=== PATIENT | male | born 1960 | race African-American/Black ===

== ENCOUNTER 2017-03-13 14:04 | Inpatient (IN) | payer MEDICARE, MEDICAID ==
[~2017-03-13] VITALS: Ht 185.4 cm; Wt 117.3 kg
[2017-03-13] VITALS: BP 124/75
--- NOTE | 2017-03-13 14:14 | Emergency Room Report ---
History of Present Illness General Chief Complaint: Altered Level of Consciousness Source: EMS Present Illness HPI The patient had a possible syncopal episode. He was in an adult day care center and slumped over sitting in a chair and was unresponsive. He's been unresponsive since that time. He's been coughing. Paramedics state that pulse oximetry was 94%. He has a history of congestive heart failure and Down's syndrome. Accucheck 167 in field. The patient is unable to give a history at this time. Allergies: Coded Allergies: No Known Allergies (Unverified , 03/13/17) Patient History Limited by: medical condition Past Medical History: see triage record Social History Narrative adult day care center Reviewed Nursing Documentation: PMH: Agreed, PSxH: Agreed Nursing Documentation-PMH Past Medical History: No History, Except For Hx Hypertension: Yes Hx Diabetes: Yes Review of Systems All Other Systems: limited Physical Exam Vital Signs Date Time Temp Pulse Resp B/P Pulse Ox O2 Delivery O2 Flow Rate FiO2 03/13/17 13:59 98.1 110 16 211/134 94 Room Air Sp02 EP Interpretation: reviewed, abnormal - hypoxic as interpreted by me (88% RA) General Appearance: no apparent distress, lethargic, Chronically Ill Head: normocephalic Eyes: bilateral eye PERRL, bilateral eye normal inspection ENT: moist mucus membranes Neck: supple Respiratory: rales Cardiovascular #1: regular rate, rhythm, edema - 1-2+ bilat Cardiovascular #2: 2+ radial (R) Gastrointestinal: normal inspection, normal bowel sounds, non tender, no mass, non-distended, distended, overweight Musculoskeletal: back normal, normal range of motion, no calf tenderness, pelvis stable Neurologic: other - Eyes closed, coughing, resp to lash stim and pain all 4 Psychiatric: other - lethargy Skin: normal inspection, warm/dry Medical Decision Making Diagnostic Impression: Primary Impression: Syncope Qualified Codes: R55 - Syncope and collapse Additional Impressions: Pulmonary edema Qualified Codes: J81.0 - Acute pulmonary edema Hypoxia Down's syndrome ER Course Patient presents with altered level of consciousness, possible syncope and also rales. He is hypoxemic. He has a history of Down's. His altered mentation does not appear to be focal however CT of the head will be performed. The patient is hypoxemic and has findings of congestive heart failure. He'll be treated with nitroglycerin paste and also Lasix. Emergent evaluation to exclude myocardial infarction is undertaken. Also emergent treatment is undertaken to treat his hypoxia. Will be given breathing treatment. EKG excludes acute myocardial injury. Chest x-ray reveals congestive heart failure or edema. Initial troponin is negative. White count is normal except which makes infectious etiology less likely. The patient is afebrile. The patient is beginning to diurese with Lasix however a second dose is given. His blood pressure has improved. In addition to that he is back to his baseline mental status according to the worker from the adult daycare. He still has hypoxia which is corrected on oxygen. He is admitted to telemetry under the care of Dr. Penaloza. Laboratory Tests Test 03/13/17 14:10 03/13/17 14:45 White Blood Count 5.8 K/UL (4.8-10.8) Red Blood Count 3.78 M/UL (4.70-6.10) L Hemoglobin 10.7 G/DL (14.2-18.0) L Hematocrit 33.4 % (42.0-52.0) L Mean Corpuscular Volume 88 FL (80-99) Mean Corpuscular Hemoglobin 28.2 PG (27.0-31.0) Mean Corpuscular Hemoglobin Concent 31.9 G/DL (32.0-36.0) L Red Cell Distribution Width 14.1 % (11.6-14.8) Platelet Count 201 K/UL (150-450) Mean Platelet Volume 7.1 FL (6.5-10.1) Neutrophils (%) (Auto) 67.2 % (45.0-75.0) Lymphocytes (%) (Auto) 21.4 % (20.0-45.0) Monocytes (%) (Auto) 8.5 % (1.0-10.0) Eosinophils (%) (Auto) 1.9 % (0.0-3.0) Basophils (%) (Auto) 1.0 % (0.0-2.0) Prothrombin Time 10.2 SEC (9.30-11.50) Prothrombin Time INR 1.0 (0.9-1.1) PTT 31 SEC (23-33) Sodium Level 140 mEQ/L (135-145) Potassium Level 3.8 mEQ/L (3.4-4.9) Chloride Level 106 mEQ/L (98-107) Carbon Dioxide Level 19 mEQ/L (20-30) L Anion Gap 15 (5-15) Blood Urea Nitrogen 58 mg/dL (7-23) H Creatinine 3.3 mg/dL (0.7-1.2) H Estimate Glomerular Filtration Rate 23.8 mL/min (>60) Glucose Level 136 mg/dL (74-106) H Calcium Level 8.7 mg/dL (8.6-10.2) Total Bilirubin 0.4 mg/dL (0.0-1.2) Aspartate Amino Transferase (AST) 20 U/L (5-40) Alanine Aminotransferase (ALT) 31 U/L (3-41) Alkaline Phosphatase 124 U/L (40-129) Total Creatine Kinase 244 U/L (38-174) H Troponin I < 0.30 ng/mL (<=0.30) Pro-B-Type Natriuretic Peptide 1675 pg/mL (0-125) H Total Protein 7.0 g/dL (6.6-8.7) Albumin 4.2 g/dL (3.5-5.2) Globulin 2.8 g/dL Albumin/Globulin Ratio 1.5 (1.0-2.7) Urine Color Pale yellow Urine Appearance Clear Urine pH 5 (4.5-8.0) Urine Specific [place] 1.015 (1.005-1.035) Urine Protein 4+ (NEGATIVE) H Urine Glucose (UA) Negative (NEGATIVE) Urine Ketones Negative (NEGATIVE) Urine Occult Blood 2+ (NEGATIVE) H Urine Nitrite Negative (NEGATIVE) Urine Bilirubin Negative (NEGATIVE) Urine Urobilinogen Normal MG/DL (0.0-1.0) Urine Leukocyte Esterase Negative (NEGATIVE) Urine RBC 2-4 /HPF (0 - 0) H Urine WBC 0-2 /HPF (0 - 0) Urine Squamous Epithelial Cells Occasional /LPF Urine Bacteria Few /HPF (NONE) Urine Opiates Screen Negative (NEGATIVE) Urine Barbiturates Screen Negative (NEGATIVE) Phencyclidine (PCP) Screen Negative (NEGATIVE) Urine Amphetamines Screen Negative (NEGATIVE) Urine Benzodiazepines Screen Negative (NEGATIVE) Urine Cocaine Screen Negative (NEGATIVE) Urine Marijuana (THC) Screen Negative (NEGATIVE) EKG Diagnostic Results Rate: normal Rhythm: NSR ST Segments: no acute changes Rhythm Strip Diag. Results EP Interpretation: yes Rhythm: NSR, other - PVC - rate 89 Chest X-Ray Diagnostic Results EP Interpretation: Yes Findings: no effusion, no pneumothorax, other - CHF Number of Views: 1 Last Vital Signs Date Time Temp Pulse Resp B/P Pulse Ox O2 Delivery O2 Flow Rate FiO2 03/13/17 15:58 78 21 149/76 95 Nasal Cannula 4.0 03/13/17 14:26 95.2 Status: improved Disposition: ADMITTED INPATIENT Condition: Serious Lalito Martinez M.D. Mar 13, 2017 14:14
[2017-03-13] MEDS ORDERED: Albuterol ud Inhalation HHN ONE (14:15)
[2017-03-13] MEDS ORDERED: Nitroglycerin 2% oint pkt TOPIC ONE (14:15)
[2017-03-13] MEDS ORDERED: HYDRALAZINE HCL50 MG ORAL (14:18)
[2017-03-13] MEDS ORDERED: ATORVASTATIN CA20 MG ORAL (14:18)
[2017-03-13] MEDS ORDERED: CARVEDILOL25 MG ORAL (14:18)
[2017-03-13] MEDS ORDERED: FUROSEMIDE20 M1 ORAL (14:18)
[2017-03-13] MEDS ORDERED: LOSARTAN POTASS50 MG ORAL (14:18)
[2017-03-13] MEDS ORDERED: TAMSULOSIN HCL0.4 MG ORAL (14:18)
[2017-03-13] MEDS ORDERED: ALLOPURINOL100 M1 ORAL (14:18)
[2017-03-13] MEDS ORDERED: AMLODIPINE BESY10 MG ORAL (14:18)
[2017-03-13] MEDS ORDERED: ISOSORBIDE DINIT5 MG ORAL (14:18)
[2017-03-13] MEDS ORDERED: LANTUS SOL100 UNIT/1 SUBQ (14:18)
[2017-03-13] MEDS ORDERED: GLIPIZIDE5 MG ORAL (14:18)
[2017-03-13 14:26] VITALS: BP 149/97
--- NOTE | 2017-03-13 14:32 | Diagnostic Imaging Report ---
Indication: Cough Comparison: None A single view chest radiograph was obtained. Findings: Interstitial edema suspected. The heart is enlarged. No pleural effusions are appreciated. The bones are unremarkable. Impression: Interstitial edema suspected
[2017-03-13 14:33] LABS: EOSINOPHILS % (AUTO) 1.9 % (0.0-3.0); LYMPHOCYTES % (AUTO) 21.4 % (20.0-45.0); MEAN CORPUSCULAR HEMOGLOBIN 28.2 PG (27.0-31.0); MEAN CORPUSCULAR HGB CONC 31.9 G/DL (32.0-36.0); MEAN CORPUSCULAR VOLUME 88 FL (80-99); MEAN PLATELET VOLUME 7.1 FL (6.5-10.1); MONOCYTES % (AUTO) 8.5 % (1.0-10.0); NEUTROPHILS % (AUTO) 67.2 % (45.0-75.0); PLATELET COUNT 201 K/UL (150-450); RED BLOOD COUNT 3.78 M/UL (4.70-6.10); RED CELL DISTRIBUTION WIDTH 14.1 % (11.6-14.8); WHITE BLOOD COUNT 5.8 K/UL (4.8-10.8)
[2017-03-13 14:45] LABS: PROTHROMBIN TIME 10.2 SEC (9.30-11.50)
[2017-03-13 14:50] LABS: TROPONIN I < 0.30 ng/mL (<=0.30)
[2017-03-13 14:51] LABS: ALANINE AMINOTRANSFERASE 31 U/L (3-41); ALBUMIN/GLOBULIN RATIO 1.5 (1.0-2.7); ANION GAP 15 (5-15); ASPARTATE AMINO TRANSFERASE 20 U/L (5-40); CALCIUM 8.7 mg/dL (8.6-10.2); CARBON DIOXIDE 19 mEQ/L (20-30); CHLORIDE 106 mEQ/L (98-107); CREATININE 3.3 mg/dL (0.7-1.2); GLOMERULAR FILTRATION RATE 23.8 mL/min (>60); HEMOLYSIS 5; POTASSIUM 3.8 mEQ/L (3.4-4.9); SODIUM 140 mEQ/L (135-145)
[2017-03-13 14:58] LABS: APPEARANCE,URINE CLEAR; KETONES,URINE NEGATIVE (NEGATIVE); LEUKOCYTE ESTERASE ,URINE NEGATIVE (NEGATIVE); NITRITE,URINE NEGATIVE (NEGATIVE); PH,URINE 5 (4.5-8.0); PROTEIN,URINE 4+ (NEGATIVE); UROBILINOGEN,URINE NORMAL MG/DL (0.0-1.0)
[2017-03-13 15:09] LABS: BACTERIA,URINE FEW /HPF; SQUAMOUS EPITHELIAL CELL,UR OCCASIONAL /LPF (NONE/OCC); WBC,URINE 0-2 /HPF (0 - 0)
--- NOTE | 2017-03-13 15:20 | Diagnostic Imaging Report ---
Indication: Syncope Technique: Contiguous 5 mm thick transaxial imaging of the head obtained in a Siemens Sensation [address] scanner. Soft tissue and bone windows generated. Total Dose length Product (DLP): [address] Dose Index Volume (CTDIvol): 70.38 mGy Comparison: none Findings: The size and configuration of the cortical sulci, basal cisterns, and ventricles are within normal limits for age. There is no mass effect, midline shift, or edema identified. There is no evidence of acute hemorrhage or abnormal intra-axial or extra-axial fluid collections. The bones and soft tissues are unremarkable. Impression: No mass effect, edema or acute bleed. The CT scanner at [facility] is accredited by the [place] [employer] and the scans are performed using dose optimization techniques as appropriate to a performed exam including Automatic Exposure control.
[2017-03-13] MEDS ORDERED: DuoNeb 0.5-3(2.5)mg/3ml neb HHN PRN (15:45)
[2017-03-13] MEDS ORDERED: Miralax 17gm pkt ORAL PRN (15:45)
[2017-03-13 15:58] VITALS: BP 149/76
[2017-03-13] MEDS: NovoLOG Insulin Flexpen SUBQ SCH ×2 (16:30→21:08)
--- NOTE | 2017-03-13 17:19 | Neurology Progress Note ---
Objective Physical Exam Last Vital Signs Date Time Temp Pulse Resp B/P Pulse Ox O2 Delivery O2 Flow Rate FiO2 03/13/17 16:27 81 21 151/76 95 Nasal Cannula 4.0 03/13/17 14:26 95.2 Laboratory Tests Test 03/13/17 14:10 03/13/17 14:45 White Blood Count 5.8 K/UL (4.8-10.8) Red Blood Count 3.78 M/UL (4.70-6.10) L Hemoglobin 10.7 G/DL (14.2-18.0) L Hematocrit 33.4 % (42.0-52.0) L Mean Corpuscular Volume 88 FL (80-99) Mean Corpuscular Hemoglobin 28.2 PG (27.0-31.0) Mean Corpuscular Hemoglobin Concent 31.9 G/DL (32.0-36.0) L Red Cell Distribution Width 14.1 % (11.6-14.8) Platelet Count 201 K/UL (150-450) Mean Platelet Volume 7.1 FL (6.5-10.1) Neutrophils (%) (Auto) 67.2 % (45.0-75.0) Lymphocytes (%) (Auto) 21.4 % (20.0-45.0) Monocytes (%) (Auto) 8.5 % (1.0-10.0) Eosinophils (%) (Auto) 1.9 % (0.0-3.0) Basophils (%) (Auto) 1.0 % (0.0-2.0) Prothrombin Time 10.2 SEC (9.30-11.50) Prothromb Time International Ratio 1.0 (0.9-1.1) Activated Partial Thromboplast Time 31 SEC (23-33) Sodium Level 140 mEQ/L (135-145) Potassium Level 3.8 mEQ/L (3.4-4.9) Chloride Level 106 mEQ/L (98-107) Carbon Dioxide Level 19 mEQ/L (20-30) L Anion Gap 15 (5-15) Blood Urea Nitrogen 58 mg/dL (7-23) H Creatinine 3.3 mg/dL (0.7-1.2) H Estimat Glomerular Filtration Rate 23.8 mL/min (>60) Glucose Level 136 mg/dL (74-106) H Calcium Level 8.7 mg/dL (8.6-10.2) Total Bilirubin 0.4 mg/dL (0.0-1.2) Aspartate Amino Transf (AST/SGOT) 20 U/L (5-40) Alanine Aminotransferase (ALT/SGPT) 31 U/L (3-41) Alkaline Phosphatase 124 U/L (40-129) Total Creatine Kinase 244 U/L (38-174) H Troponin I < 0.30 ng/mL (<=0.30) Pro-B-Type Natriuretic Peptide 1675 pg/mL (0-125) H Total Protein 7.0 g/dL (6.6-8.7) Albumin 4.2 g/dL (3.5-5.2) Globulin 2.8 g/dL Albumin/Globulin Ratio 1.5 (1.0-2.7) Urine Color Pale yellow Urine Appearance Clear Urine pH 5 (4.5-8.0) Urine Specific [place] 1.015 (1.005-1.035) Urine Protein 4+ (NEGATIVE) H Urine Glucose (UA) Negative (NEGATIVE) Urine Ketones Negative (NEGATIVE) Urine Occult Blood 2+ (NEGATIVE) H Urine Nitrite Negative (NEGATIVE) Urine Bilirubin Negative (NEGATIVE) Urine Urobilinogen Normal MG/DL (0.0-1.0) Urine Leukocyte Esterase Negative (NEGATIVE) Urine RBC 2-4 /HPF (0 - 0) H Urine WBC 0-2 /HPF (0 - 0) Urine Squamous Epithelial Cells Occasional /LPF Urine Bacteria Few /HPF (NONE) Urine Opiates Screen Negative (NEGATIVE) Urine Barbiturates Screen Negative (NEGATIVE) Phencyclidine (PCP) Screen Negative (NEGATIVE) Urine Amphetamines Screen Negative (NEGATIVE) Urine Benzodiazepines Screen Negative (NEGATIVE) Urine Cocaine Screen Negative (NEGATIVE) Urine Marijuana (THC) Screen Negative (NEGATIVE) Impression/Recommendations Problems: (1) Syncope (2) Hypoxia (3) Pulmonary edema Status: unchanged Diagnostic Impression #[id number] DYLAN DYE Mar 13, 2017 17:19
[2017-03-13] MEDS: HydrALAZINE 50mg tab ORAL SCH (18:00)
--- NOTE | 2017-03-13 19:30 | History and Physical ---
History of Present Illness General Date patient seen: Mar 13, 2017 Reason for Hospitalization: Altered Level of Consciousness Present Illness HPI 56 year old with developmental delay, CHF was brought in by paramedics with CC of syncopal episode. He was in an adult day care center and slumped over sitting in a chair and was unresponsive. He's been unresponsive since that time. He's been coughing. Initial cxr showed that the pt has cardiomegaly and pulmonary edema. Allergies: Coded Allergies: No Known Allergies (Unverified , 03/13/17) Medication History Scheduled Allopurinol* (Allopurinol*), 100 MG ORAL DAILY, (Reported) Amlodipine Besylate* (Amlodipine Besylate*), 10 MG ORAL DAILY, (Reported) Atorvastatin Calcium* (Atorvastatin Calcium*), 20 MG ORAL BEDTIME, (Reported) Carvedilol* (Carvedilol*), 25 MG ORAL EVERY 12 HOURS, (Reported) Furosemide* (Lasix*), 20 MG ORAL DAILY, (Reported) Glipizide* (Glipizide*), 5 MG ORAL BIDAC, (Reported) Hydralazine Hcl* (Hydralazine Hcl*), 50 MG ORAL BID, (Reported) Insulin Glargine (Lantus), Unknown Dose SUBQ BEDTIME, (Reported) Isosorbide Dinitrate (Isosorbide Dinitrate*), 10 MG ORAL TID, (Reported) Losartan Potassium* (Losartan Potassium*), 100 MG ORAL DAILY, (Reported) Tamsulosin Hcl (Tamsulosin Hcl*), 0.4 MG ORAL BEDTIME, (Reported) Patient History Healthcare decision maker N Resuscitation status Full Code Advanced Directive on File Past Medical/Surgical History Past Medical/Surgical History: (1) Congestive heart failure (2) Down's syndrome Review of Systems Constitutional: Reports: weakness Respiratory: Reports: cough, shortness of breath All Other Systems: negative except mentioned in HPI Physical Exam General Appearance: WD/WN, mild distress Lines, tubes and drains: peripheral HEENT: normocephalic Neck: non-tender, normal alignment Respiratory/Chest: chest wall non-tender, rhonchi - bilaterally Breasts: no masses Cardiovascular/Chest: normal peripheral pulses Abdomen: normal bowel sounds Skin Exam: normal pigmentation Last 24 Hour Vital Signs Date Time Temp Pulse Resp B/P Pulse Ox O2 Delivery O2 Flow Rate FiO2 03/13/17 18:00 151/76 03/13/17 16:27 81 21 151/76 95 Nasal Cannula 4.0 03/13/17 15:58 78 21 149/76 95 Nasal Cannula 4.0 03/13/17 14:45 149/97 03/13/17 14:26 95.2 84 23 149/97 94 Room Air 03/13/17 13:59 98.1 110 16 211/134 94 Room Air Laboratory Tests Test 03/13/17 14:10 03/13/17 14:45 White Blood Count 5.8 K/UL (4.8-10.8) Red Blood Count 3.78 M/UL (4.70-6.10) L Hemoglobin 10.7 G/DL (14.2-18.0) L Hematocrit 33.4 % (42.0-52.0) L Mean Corpuscular Volume 88 FL (80-99) Mean Corpuscular Hemoglobin 28.2 PG (27.0-31.0) Mean Corpuscular Hemoglobin Concent 31.9 G/DL (32.0-36.0) L Red Cell Distribution Width 14.1 % (11.6-14.8) Platelet Count 201 K/UL (150-450) Mean Platelet Volume 7.1 FL (6.5-10.1) Neutrophils (%) (Auto) 67.2 % (45.0-75.0) Lymphocytes (%) (Auto) 21.4 % (20.0-45.0) Monocytes (%) (Auto) 8.5 % (1.0-10.0) Eosinophils (%) (Auto) 1.9 % (0.0-3.0) Basophils (%) (Auto) 1.0 % (0.0-2.0) Prothrombin Time 10.2 SEC (9.30-11.50) Prothromb Time International Ratio 1.0 (0.9-1.1) Activated Partial Thromboplast Time 31 SEC (23-33) Sodium Level 140 mEQ/L (135-145) Potassium Level 3.8 mEQ/L (3.4-4.9) Chloride Level 106 mEQ/L (98-107) Carbon Dioxide Level 19 mEQ/L (20-30) L Anion Gap 15 (5-15) Blood Urea Nitrogen 58 mg/dL (7-23) H Creatinine 3.3 mg/dL (0.7-1.2) H Estimat Glomerular Filtration Rate 23.8 mL/min (>60) Glucose Level 136 mg/dL (74-106) H Calcium Level 8.7 mg/dL (8.6-10.2) Total Bilirubin 0.4 mg/dL (0.0-1.2) Aspartate Amino Transf (AST/SGOT) 20 U/L (5-40) Alanine Aminotransferase (ALT/SGPT) 31 U/L (3-41) Alkaline Phosphatase 124 U/L (40-129) Total Creatine Kinase 244 U/L (38-174) H Troponin I < 0.30 ng/mL (<=0.30) Pro-B-Type Natriuretic Peptide 1675 pg/mL (0-125) H Total Protein 7.0 g/dL (6.6-8.7) Albumin 4.2 g/dL (3.5-5.2) Globulin 2.8 g/dL Albumin/Globulin Ratio 1.5 (1.0-2.7) Urine Color Pale yellow Urine Appearance Clear Urine pH 5 (4.5-8.0) Urine Specific [place] 1.015 (1.005-1.035) Urine Protein 4+ (NEGATIVE) H Urine Glucose (UA) Negative (NEGATIVE) Urine Ketones Negative (NEGATIVE) Urine Occult Blood 2+ (NEGATIVE) H Urine Nitrite Negative (NEGATIVE) Urine Bilirubin Negative (NEGATIVE) Urine Urobilinogen Normal MG/DL (0.0-1.0) Urine Leukocyte Esterase Negative (NEGATIVE) Urine RBC 2-4 /HPF (0 - 0) H Urine WBC 0-2 /HPF (0 - 0) Urine Squamous Epithelial Cells Occasional /LPF Urine Bacteria Few /HPF (NONE) Urine Opiates Screen Negative (NEGATIVE) Urine Barbiturates Screen Negative (NEGATIVE) Phencyclidine (PCP) Screen Negative (NEGATIVE) Urine Amphetamines Screen Negative (NEGATIVE) Urine Benzodiazepines Screen Negative (NEGATIVE) Urine Cocaine Screen Negative (NEGATIVE) Urine Marijuana (THC) Screen Negative (NEGATIVE) Height (Feet): 6 Height (Inches): 1.00 Weight (Pounds): 280 Medications Current Medications Medications (Trade) Dose Ordered Sig/Emmy Route PRN Reason Start Time Stop Time Status Last Admin Dose Admin Acetaminophen (Tylenol) 650 mg Q4H PRN ORAL Fever 03/13/17 15:45 04/12/17 15:44 Albuterol/ Ipratropium (DuoNeb 0.5-3(2.5)mg/3ml) 3 ml EVERY 4 HOURS PRN HHN Shortness of Breath 03/13/17 15:45 03/18/17 15:44 Allopurinol (Zyloprim) 100 mg DAILY ORAL 03/14/17 09:00 04/13/17 08:59 Amlodipine Besylate (Norvasc) 10 mg DAILY ORAL 03/14/17 09:00 04/13/17 08:59 Atorvastatin Calcium (Lipitor) 20 mg BEDTIME ORAL 03/13/17 21:00 04/12/17 20:59 Carvedilol (Coreg) 25 mg EVERY 12 HOURS ORAL 03/13/17 21:00 04/12/17 20:59 Dextrose (Dextrose 50%) STAT PRN IV Hypoglycemia 03/13/17 15:45 04/12/17 15:44 Furosemide (Lasix) 40 mg EVERY 8 HOURS IV 03/13/17 22:00 04/12/17 21:59 Heparin Sodium (Porcine) (Heparin 5000 units/ml) 5,000 units EVERY 12 HOURS SUBQ 03/13/17 21:00 04/12/17 20:59 Hydralazine HCl (Apresoline) 50 mg BID ORAL 03/13/17 18:00 04/12/17 17:59 03/13/17 18:00 Insulin Aspart (NovoLOG) BEFORE MEALS AND HS SUBQ 03/13/17 16:30 04/12/17 16:29 Ondansetron HCl (Zofran) 4 mg Q6H PRN IVP Nausea & Vomiting 03/13/17 15:45 04/12/17 15:44 03/13/17 18:58 Polyethylene Glycol (Miralax) 17 gm DAILYPRN PRN ORAL Constipation 03/13/17 15:45 04/12/17 15:44 Tamsulosin HCl (Flomax) 0.4 mg BEDTIME ORAL 03/13/17 21:00 04/12/17 20:59 Temazepam (Restoril) 15 mg HSPRN PRN ORAL Insomnia 03/13/17 15:45 03/20/17 15:44 Assessment/Plan Problem List: (1) Acute encephalopathy ICD Codes: G93.40 - Encephalopathy, unspecified SNOMED: 3071132 (2) ATN (acute tubular necrosis) ICD Codes: N17.0 - Acute kidney failure with tubular necrosis SNOMED: 88402407 (3) Congestive heart failure ICD Codes: I50.9 - Heart failure, unspecified SNOMED: 33194683 Assessment/Plan Tel;e monitoring echo diuretic neuro evaluations dvt prophylaxis NIRU COWAN Mar 13, 2017 19:30
[2017-03-13 20:00] VITALS: BP 166/71
[2017-03-13] MEDS ORDERED: Tamsulosin 0.4mg cap ORAL SCH (21:00)
[2017-03-13] MEDS: Carvedilol 25mg Tab ORAL SCH (21:02)
[2017-03-13] MEDS: Atorvastatin 20mg tab ORAL SCH (21:03)
[2017-03-13] MEDS: Heparin 5000 units/ml inj SUBQ SCH (21:05)
[2017-03-13 22:22] VITALS: BP 131/68
[2017-03-14] VITALS (7 sets, daily range): BP systolic 124–138; BP diastolic 64–75
--- NOTE | 2017-03-14 00:30 | Consultation ---
DATE OF CONSULTATION: 03/13/2017 NEUROLOGICAL CONSULTATION: REQUESTING PHYSICIAN: Ana Penaloza M.D. HISTORY OF PRESENT ILLNESS: The patient is a 56-year-old male seen in neurological consultation to evaluate the transient loss of consciousness. According to the patient, who is suffering from a bronchial asthma . feeling fairly well when someone sprayed perfume. The patient feels immediately "very sick " quite soon he lost consciousness. He was found slumped over and being unresponsive, but coughing. Paramedics were called to the scene. Pulse oximetry was 94% with blood pressure 211/134, heart rate of 110, and temperature 98.1 degrees. On admission, the patient described as lethargic, and fluttering eyes with poor verbal response. Initial lab work included mild anemia, hemoglobin 10.7 and hematocrit 33.4. Toxicology panel was negative. Urinalysis unremarkable except 4+ protein. Chemistry panel with abnormal BUN 58, creatinine 3.3, and blood sugar 136. CPK 244 and BNP of 1675. CAT scan of the brain that was essentially normal with no midline shift. No hemorrhage and chest x-ray with interstitial edema suspected. His EKG normal sinus rhythm with some PVC rate of 89. PAST MEDICAL HISTORY: History of hypertension, diabetes, bronchial asthma, COPD, renal insufficiency, hyperlipidemia, CHF, and Down syndrome. MEDICATIONS: The patient's treatment on admission included albuterol, amlodipine, Coreg, Lasix, subcutaneous heparin, insulin, nitroglycerin, Zofran, Flomax, and Restoril. The patient now appears improving. ALLERGIES: None reported. SOCIAL HISTORY: The patient lives alone, but at times daycare unit full activities. No alcohol. No drug abuse. Nonsmoker. FAMILY HISTORY: Noncontributory. REVIEW OF SYSTEMS: Currently, the patient is feeling much better. He has some shortness of breath on exertion, but denies headache or dizziness. No chest pain or palpitations. No urine or bowel incontinence. Unaware of having seizures or strokes. PHYSICAL EXAMINATION: GENERAL: This is a well-developed and well-nourished man, not in acute distress, lying comfortably in bed. VITAL SIGNS: Now stable. Blood pressure 150/76. HEENT: Head normocephalic. No evidence of trauma. Eyes, ears, and throat are clear. NECK: Supple. No meningeal signs. MUSCULOSKELETAL: Unremarkable. No deformities. PERIPHERAL PULSES: A 1+ symmetric. MENTAL STATUS: Alert and oriented x2. His speech is fluent. Language intact. Forgetful. Poor historian but pleasant, cooperative, and follows commands. CRANIAL NERVES II: Pupils both responding to light and accommodation. Extraocular movement intact. No nystagmus. CRANIAL NERVES V: Normal corneal responses. CRANIAL NERVE VII: No facial asymmetry. CRANIAL NERVE VIII: Normal hearing. CRANIAL NERVES IX THROUGH XII: Tongue is in midline. Symmetric palate elevation. MOTOR EXAMINATION: Normal muscle tone. Strength 5/5 in all extremities. No involuntary movement. Deep reflexes 1+ symmetric with downgoing toes on both sides. SENSORY EXAM: Normal to pinprick light touch. Gait not tested, but reported stable. IMPRESSION: 1. This is a 56-year-old man with multiple medical issues, developmental delay, and bronchial asthma, who developed a syncopal episode, respiratory insufficiency with slow recovery. No evidence of transient ischemic attack or seizure activities. 2. Hypertension, out of control. 3. Diabetes type 2. 4. Hyperlipidemia. 5. Renal insufficiency. RECOMMENDATION: The patient has a transient unresponsiveness coinciding with decompensated blood pressure, congestive heart failure, pulmonary edema. The patient started on broncholytics and IV fluids with gradual improvement. Currently, he appears to be at baseline with signs of developmental delay, mild to moderate, swelling both lower extremities, no lateralizing deficit. The patient continued with the current treatment, observed for any paroxysmal events. I reviewed CT of the brain , which reveals no evidence of acute stroke. No pathology. Again, thank you for allowing me to see this interesting patient in neurological consultation. Rhys Bradley M.D. DR: Nkechi JOB#: [id number] CC:
[2017-03-14] MEDS: NovoLOG Insulin Flexpen SUBQ SCH ×4 (06:09→21:28)
[2017-03-14 07:46] LABS: BASOPHILS % (AUTO) 0.5 % (0.0-2.0); EOSINOPHILS % (AUTO) 0.7 % (0.0-3.0); LYMPHOCYTES % (AUTO) 12.8 % (20.0-45.0); MEAN CORPUSCULAR HEMOGLOBIN 29.3 PG (27.0-31.0); MEAN CORPUSCULAR HGB CONC 32.7 G/DL (32.0-36.0); MEAN CORPUSCULAR VOLUME 90 FL (80-99); MEAN PLATELET VOLUME 6.4 FL (6.5-10.1); MONOCYTES % (AUTO) 7.4 % (1.0-10.0); NEUTROPHILS % (AUTO) 78.6 % (45.0-75.0); PLATELET COUNT 166 K/UL (150-450); RED BLOOD COUNT 3.23 M/UL (4.70-6.10); RED CELL DISTRIBUTION WIDTH 14.2 % (11.6-14.8); WHITE BLOOD COUNT 8.8 K/UL (4.8-10.8)
[2017-03-14 08:05] LABS: TROPONIN I < 0.30 ng/mL (<=0.30)
[2017-03-14 08:14] LABS: CALCIUM 8.3 mg/dL (8.6-10.2); CREATININE 3.5 mg/dL (0.7-1.2); GLOMERULAR FILTRATION RATE 22.2 mL/min (>60); PHOSPHORUS 4.3 mg/dL (2.5-4.8); POTASSIUM 4.1 mEQ/L (3.4-4.9)
[2017-03-14] MEDS: Carvedilol 25mg Tab ORAL SCH ×2 (08:34→21:28)
[2017-03-14] MEDS: HydrALAZINE 50mg tab ORAL SCH (08:35)
[2017-03-14] MEDS: Allopurinol 100mg Tab ORAL SCH (08:35)
[2017-03-14] MEDS: Heparin 5000 units/ml inj SUBQ SCH ×2 (08:36→21:27)
--- NOTE | 2017-03-14 12:01 | Pulmonology Progress Note ---
Assessment/Plan Problems: (1) Acute encephalopathy (2) ATN (acute tubular necrosis) (3) Congestive heart failure Assessment/Plan doing better echo noted, EF of 45% continue lasix check electrolytes and bnp, cxr in am cardio consult requested to fine tune cardiac meds dvt prophylaxis Subjective ROS Limited/Unobtainable: No Interval Events: doing better, no sob Allergies: Coded Allergies: No Known Allergies (Unverified , 03/13/17) Objective Last 24 Hour Vital Signs Date Time Temp Pulse Resp B/P Pulse Ox O2 Delivery O2 Flow Rate FiO2 03/14/17 08:36 78 134/67 03/14/17 08:35 134/67 03/14/17 08:34 78 134/67 03/14/17 08:08 99.0 78 18 134/67 97 Nasal Cannula 2.0 03/14/17 08:00 77 03/14/17 07:11 Nasal Cannula 4.0 36 03/14/17 07:11 80 18 Nasal Cannula 4.0 36 03/14/17 07:11 96 Nasal Cannula 4.0 36 03/14/17 04:13 95.2 79 20 138/72 89 Room Air 03/14/17 04:00 74 03/14/17 03:00 95.2 79 20 138/72 89 Nasal Cannula 4.0 36 03/14/17 00:00 99.1 86 20 124/75 97 Nasal Cannula 4.0 36 03/13/17 23:39 82 03/13/17 23:25 99.1 03/13/17 22:22 101.7 89 16 131/68 94 Nasal Cannula 4.0 36 03/13/17 21:02 93 166/71 03/13/17 20:00 101.8 93 16 166/71 94 Nasal Cannula 4.0 36 03/13/17 19:57 79 18 Nasal Cannula 4.0 36 03/13/17 19:57 Nasal Cannula 4.0 36 03/13/17 19:57 95 Nasal Cannula 4.0 36 03/13/17 19:54 90 03/13/17 18:00 151/76 03/13/17 16:27 81 21 151/76 95 Nasal Cannula 4.0 03/13/17 15:58 78 21 149/76 95 Nasal Cannula 4.0 03/13/17 14:45 149/97 03/13/17 14:26 95.2 84 23 149/97 94 Room Air 03/13/17 13:59 98.1 110 16 211/134 94 Room Air Intake and Output 03/13/17 03/14/17 19:00 07:00 Intake Total 0 ml 0 ml Output Total 400 ml 2700 ml Balance -400 ml -2700 ml Intake Oral 0 ml 0 ml Output Urine Total 400 ml 2700 ml General Appearance: WD/WN HEENT: normocephalic, atraumatic Respiratory/Chest: chest wall non-tender, lungs clear Cardiovascular: normal peripheral pulses, normal rate Abdomen: normal bowel sounds, soft, non tender Genitourinary: normal external genitalia Extremities: no clubbing Skin: no lesions 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, no motor/sensory deficits Lymphatic: no neck adenopathy Laboratory Tests 03/13/17 14:10: White Blood Count 5.8, Red Blood Count 3.78L, Hemoglobin 10.7L, Hematocrit 33.4L , Mean Corpuscular Volume 88, Mean Corpuscular Hemoglobin 28.2, Mean Corpuscular Hemoglobin Concent 31.9L, Red Cell Distribution Width 14.1, Platelet Count 201, Mean Platelet Volume 7.1, Neutrophils (%) (Auto) 67.2, Lymphocytes (%) (Auto) 21.4, Monocytes (%) (Auto) 8.5, Eosinophils (%) (Auto) 1.9, Basophils (%) (Auto) 1.0, Prothrombin Time 10.2, Prothromb Time International Ratio 1.0, Activated Partial Thromboplast Time 31, Sodium Level 140, Potassium Level 3.8, Chloride Level 106, Carbon Dioxide Level 19L, Anion Gap 15, Blood Urea Nitrogen 58H, Creatinine 3.3H, Estimat Glomerular Filtration Rate 23.8, Glucose Level 136H, Calcium Level 8.7, Total Bilirubin 0.4, Aspartate Amino Transf (AST/SGOT) 20, Alanine Aminotransferase (ALT/SGPT) 31, Alkaline Phosphatase 124, Total Creatine Kinase 244H, Troponin I < 0.30, Pro-B- Type Natriuretic Peptide 1675H, Total Protein 7.0, Albumin 4.2, Globulin 2.8, Albumin/Globulin Ratio 1.5 03/13/17 14:45: Urine Color Pale yellow, Urine Appearance Clear, Urine pH 5, Urine Specific [place] 1.015, Urine Protein 4+H, Urine Glucose (UA) Negative, Urine Ketones Negative, Urine Occult Blood 2+H, Urine Nitrite Negative, Urine Bilirubin Negative, Urine Urobilinogen Normal, Urine Leukocyte Esterase Negative, Urine RBC 2-4H, Urine WBC 0-2, Urine Squamous Epithelial Cells Occasional, Urine Bacteria Few, Urine Opiates Screen Negative, Urine Barbiturates Screen Negative , Phencyclidine (PCP) Screen Negative, Urine Amphetamines Screen Negative, Urine Benzodiazepines Screen Negative, Urine Cocaine Screen Negative, Urine Marijuana (THC) Screen Negative 03/14/17 07:05: White Blood Count 8.8#, Red Blood Count 3.23L, Hemoglobin 9.5L, Hematocrit 28.9L , Mean Corpuscular Volume 90, Mean Corpuscular Hemoglobin 29.3, Mean Corpuscular Hemoglobin Concent 32.7, Red Cell Distribution Width 14.2, Platelet Count 166, Mean Platelet Volume 6.4L, Neutrophils (%) (Auto) 78.6H, Lymphocytes (%) (Auto) 12.8L, Monocytes (%) (Auto) 7.4, Eosinophils (%) (Auto) 0.7, Basophils (%) (Auto) 0.5, Sodium Level 145, Potassium Level 4.1, Chloride Level 107, Carbon Dioxide Level 20, Anion Gap 18H, Blood Urea Nitrogen 60H, Creatinine 3.5H, Estimat Glomerular Filtration Rate 22.2, Glucose Level 103, Calcium Level 8.3L, Troponin I < 0.30, Albumin 3.8, Phosphorus Level 4.3 Current Medications Medications (Trade) Dose Ordered Sig/Emmy Route PRN Reason Start Time Stop Time Status Last Admin Dose Admin Acetaminophen (Tylenol) 650 mg Q4H PRN ORAL Fever 03/13/17 15:45 04/12/17 15:44 03/13/17 22:26 Albuterol/ Ipratropium (DuoNeb 0.5-3(2.5)mg/3ml) 3 ml EVERY 4 HOURS PRN HHN Shortness of Breath 03/13/17 15:45 03/18/17 15:44 Allopurinol (Zyloprim) 100 mg DAILY ORAL 03/14/17 09:00 04/13/17 08:59 03/14/17 08:35 Amlodipine Besylate (Norvasc) 10 mg DAILY ORAL 03/14/17 09:00 04/13/17 08:59 03/14/17 08:36 Atorvastatin Calcium (Lipitor) 20 mg BEDTIME ORAL 03/13/17 21:00 04/12/17 20:59 03/13/17 21:03 Carvedilol (Coreg) 25 mg EVERY 12 HOURS ORAL 03/13/17 21:00 04/12/17 20:59 03/14/17 08:34 Dextrose (Dextrose 50%) STAT PRN IV Hypoglycemia 03/13/17 15:45 04/12/17 15:44 Furosemide (Lasix) 40 mg EVERY 8 HOURS IV 03/13/17 22:00 04/12/17 21:59 03/14/17 06:05 Heparin Sodium (Porcine) (Heparin 5000 units/ml) 5,000 units EVERY 12 HOURS SUBQ 03/13/17 21:00 04/12/17 20:59 03/14/17 08:36 Hydralazine HCl (Apresoline) 50 mg BID ORAL 03/13/17 18:00 04/12/17 17:59 03/14/17 08:35 Insulin Aspart (NovoLOG) BEFORE MEALS AND HS SUBQ 03/13/17 16:30 04/12/17 16:29 03/14/17 11:36 Ondansetron HCl (Zofran) 4 mg Q6H PRN IVP Nausea & Vomiting 03/13/17 15:45 04/12/17 15:44 03/13/17 18:58 Polyethylene Glycol (Miralax) 17 gm DAILYPRN PRN ORAL Constipation 03/13/17 15:45 04/12/17 15:44 Tamsulosin HCl (Flomax) 0.4 mg BEDTIME ORAL 03/13/17 21:00 04/12/17 20:59 03/13/17 21:02 Temazepam (Restoril) 15 mg HSPRN PRN ORAL Insomnia 03/13/17 15:45 03/20/17 15:44 NIRU COWAN Mar 14, 2017 12:01
--- NOTE | 2017-03-14 14:15 | Consultation ---
Consult Note Consult Note Asked to eval for renal failure- HPI The patient had a possible syncopal episode. He was in an adult day care center and slumped over sitting in a chair and was unresponsive. He's been unresponsive since that time. He's been coughing. Paramedics state that pulse oximetry was 94%. He has a history of congestive heart failure and Down's syndrome. Accucheck 167 in field. The patient is unable to give a history at this time. Hx Hypertension: Yes Hx Diabetes: Yes examined- data reviewed Assessment/Plan status: Renal failure- Acute vs Chronic 4+ Peoteinuria , etiology ?? Anemia ? CKD , r/o GI loss HTN DM Plan: 2D Echo Kidney [facility] avoid nephrotoxics- monitor renal parameters Urine studies Per orders ELOISE OLIVEROS Mar 14, 2017 14:15
[2017-03-14] MEDS: Tamsulosin 0.4mg cap ORAL SCH (18:11)
--- NOTE | 2017-03-14 19:15 | Cardiology Progress Note ---
Assessment/Plan Assessment/Plan full note dicated [id number] Objective Last 24 Hour Vital Signs Date Time Temp Pulse Resp B/P Pulse Ox O2 Delivery O2 Flow Rate FiO2 03/14/17 16:00 70 03/14/17 16:00 97.9 86 19 132/64 97 Nasal Cannula 2.0 83 03/14/17 12:00 69 03/14/17 12:00 95.9 72 17 131/72 98 Nasal Cannula 2.0 74 03/14/17 08:36 78 134/67 03/14/17 08:35 134/67 03/14/17 08:34 78 134/67 03/14/17 08:08 99.0 78 18 134/67 97 Nasal Cannula 2.0 03/14/17 08:00 77 03/14/17 07:11 Nasal Cannula 4.0 36 03/14/17 07:11 80 18 Nasal Cannula 4.0 36 03/14/17 07:11 96 Nasal Cannula 4.0 36 03/14/17 04:13 95.2 79 20 138/72 89 Room Air 03/14/17 04:00 74 03/14/17 03:00 95.2 79 20 138/72 89 Nasal Cannula 4.0 36 03/14/17 00:00 99.1 86 20 124/75 97 Nasal Cannula 4.0 36 03/13/17 23:39 82 03/13/17 23:25 99.1 03/13/17 22:22 101.7 89 16 131/68 94 Nasal Cannula 4.0 36 03/13/17 21:02 93 166/71 03/13/17 20:00 101.8 93 16 166/71 94 Nasal Cannula 4.0 36 03/13/17 19:57 79 18 Nasal Cannula 4.0 36 03/13/17 19:57 Nasal Cannula 4.0 36 03/13/17 19:57 95 Nasal Cannula 4.0 36 03/13/17 19:54 90 Intake and Output 03/13/17 03/14/17 19:00 07:00 Intake Total 0 ml 0 ml Output Total 400 ml 2700 ml Balance -400 ml -2700 ml Intake Oral 0 ml 0 ml Output Urine Total 400 ml 2700 ml Laboratory Tests Test 03/14/17 07:05 White Blood Count 8.8 K/UL (4.8-10.8) # Red Blood Count 3.23 M/UL (4.70-6.10) L Hemoglobin 9.5 G/DL (14.2-18.0) L Hematocrit 28.9 % (42.0-52.0) L Mean Corpuscular Volume 90 FL (80-99) Mean Corpuscular Hemoglobin 29.3 PG (27.0-31.0) Mean Corpuscular Hemoglobin Concent 32.7 G/DL (32.0-36.0) Red Cell Distribution Width 14.2 % (11.6-14.8) Platelet Count 166 K/UL (150-450) Mean Platelet Volume 6.4 FL (6.5-10.1) L Neutrophils (%) (Auto) 78.6 % (45.0-75.0) H Lymphocytes (%) (Auto) 12.8 % (20.0-45.0) L Monocytes (%) (Auto) 7.4 % (1.0-10.0) Eosinophils (%) (Auto) 0.7 % (0.0-3.0) Basophils (%) (Auto) 0.5 % (0.0-2.0) Sodium Level 145 mEQ/L (135-145) Potassium Level 4.1 mEQ/L (3.4-4.9) Chloride Level 107 mEQ/L (98-107) Carbon Dioxide Level 20 mEQ/L (20-30) Anion Gap 18 (5-15) H Blood Urea Nitrogen 60 mg/dL (7-23) H Creatinine 3.5 mg/dL (0.7-1.2) H Estimat Glomerular Filtration Rate 22.2 mL/min (>60) Glucose Level 103 mg/dL (74-106) Calcium Level 8.3 mg/dL (8.6-10.2) L Phosphorus Level 4.3 mg/dL (2.5-4.8) Troponin I < 0.30 ng/mL (<=0.30) Albumin 3.8 g/dL (3.5-5.2) ROGELIO KINGSLEY 8, 2017 19:15
[2017-03-14] MEDS: Atorvastatin 20mg tab ORAL SCH (21:29)
[2017-03-14] MEDS: HydrALAZINE 25mg tab ORAL SCH (21:47)
[2017-03-15] VITALS (7 sets, daily range): BP systolic 119–158; BP diastolic 68–83
--- NOTE | 2017-03-15 04:00 | Consultation ---
DATE OF CONSULTATION: 03/14/2017 CARDIOLOGY CONSULTATION CONSULTING PHYSICIAN: Yoel Nolan M.D. REFERRING PHYSICIAN: Ana Penaloza M.D. REASON FOR REFERRAL: Syncope. HISTORY OF PRESENT ILLNESS: This is an elderly male, who apparently says he was out exercising and he found himself on the floor. 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 No chest pain, shortness of breath, trauma, or falls. The patient's initial blood pressure was documented as 211/134 and eventually 183/96 and the patient was brought to the emergency room at [facility]. The patient tells me that he has been doing a lot of exercises recently and he has been able to control his blood sugars and his blood pressure and did not have any chest pain or pressure. No PND. He uses two pillows. Occasional dizzy and lightheaded when he sits up or stands up. Nevertheless, he presented to the hospital because of loss of consciousness. PAST MEDICAL HISTORY: According to the records from [facility] where I have been able to look up, was previously seen by Dr. Fowler and has a history of hyperlipidemia, hypertension, and diabetes mellitus. ALLERGIES: He is not allergic to any medication. FAMILY HISTORY: Includes diabetes in parental grandmother. SOCIAL HISTORY: He has never smoked tobacco. He denies any drinking. No drug use. REVIEW OF SYSTEMS: Gastrointestinal: He had a bout of vomiting yesterday. No bloody stools or black tarry stools. Genitourinary: Denies. Pulmonary: He denies. Constitutional: Denies. Neurologic: He denies. PHYSICAL EXAMINATION: GENERAL: Shows to be a middle-aged gentleman, obese, and in no apparent respiratory distress. NECK: Supple. No jugular venous distention. No abdominojugular reflux noted. LUNGS: Clear to auscultation and percussion. CARDIAC: S1 is normal. S2 is normal. Regular rate and rhythm. ABDOMEN: Soft and nontender. Positive bowel sounds. EXTREMITIES: There is no clubbing, cyanosis, nor is there any edema. NEUROLOGICAL: He is awake, alert, responsive, and in no apparent respiratory distress. LABORATORY AND DIAGNOSTIC DATA: EKG performed by paramedics showed sinus rhythm with sinus tachycardia with rate of 141. No ST-T wave abnormalities on that EKG. His showed sinus rhythm. No atrial fibrillation or pauses of significant degree. I noted the document is based on the telemetry strips. An echocardiogram has been performed. Preliminary report shows ejection fraction at 40% to 45% and global hypokinesis being noted, [id number] biatrial enlargement, and right ventricular enlargement being mild. IVC was dilated and [id number] regurgitation and mitral flow pseudonormalization pattern is noted. Pulmonary systolic pressure is normal. Venous duplex study apparently is negative. EKG basically shows sinus rhythm with T-wave inversion in I and aVL and evidence of left ventricular hypertrophy with repolarization abnormalities being noted on that EKG. His blood tests, white count of 8.8, hemoglobin 9.5, and platelet count 166,000. His chemistry panel, sodium 145, potassium 4.1, chloride 107, bicarb 20, BUN of 16, creatinine 3.5, and a glucose of 103. Troponins of less than 0.03. CPK of 244. ProBNP is only 1675. Coags, INR 1.0 and a PTT of 31. Urine drug screen is negative. Urinalysis, 2 to 4 RBCs and 0 to 2 WBCs. Chest x-ray shows interstitial edema. ASSESSMENT: 1. Hypertensive encephalopathy. 2. Syncope. 3. Obesity. 4. Diabetes mellitus. 5. Hypertension. 6. Chronic kidney disease. 7. Hyperlipidemia. 8. Possible congestive heart failure. 9. Left ventricular systolic dysfunction. PLAN: Dr. Penaloza, this patient was seen in cardiac consultation. The patient's chart has been reviewed. The LV systolic dysfunction was noted. The patient's telemetry so far negative. Electrocardiogram is unremarkable. He is on antihypertensive medications as well as diuretics. He is actually on six antihypertensive medications, yet his blood pressure is significantly elevated. I am not sure how compliant he is with his blood pressure medications, and in either case his blood pressure has been much better controlled since being admitted to the hospital where his blood pressure is 130/62s and he has been started on his Norvasc, Coreg, Lasix, hydralazine, and not on his losartan or Isordil, yet he has excellent blood pressure control. He should be observed on telemetry. He may require further testing. Orthostatic vitals have been ordered and his blood pressure will be carefully monitored while here on his present medication before addition of medication will be administered. His although he had been on losartan 100 mg daily on prior occasions. Because of his renal insufficiency, he will be off losartan for the time being. Yoel Nolan M.D. DR: KARAN JOB#: [id number] CC:
[2017-03-15] MEDS: HydrALAZINE 25mg tab ORAL SCH ×2 (06:03→22:00)
[2017-03-15] MEDS: NovoLOG Insulin Flexpen SUBQ SCH ×4 (06:30→21:51)
[2017-03-15 07:09] LABS: TROPONIN I < 0.30 ng/mL (<=0.30)
[2017-03-15 07:10] LABS: ALBUMIN/GLOBULIN RATIO 1.2 (1.0-2.7); CALCIUM 8.5 mg/dL (8.6-10.2); CHOLESTEROL/HDL RATIO 3.8 (3.3-4.4); CREATININE 3.7 mg/dL (0.7-1.2); GLOMERULAR FILTRATION RATE 20.7 mL/min (>60); TOTAL PROTEIN 6.4 g/dL (6.6-8.7)
[2017-03-15 07:13] LABS: BASOPHILS % (AUTO) 0.5 % (0.0-2.0); EOSINOPHILS % (AUTO) 3.4 % (0.0-3.0); MEAN CORPUSCULAR HEMOGLOBIN 28.3 PG (27.0-31.0); MEAN CORPUSCULAR HGB CONC 31.6 G/DL (32.0-36.0); MEAN CORPUSCULAR VOLUME 90 FL (80-99); MEAN PLATELET VOLUME 6.6 FL (6.5-10.1); MONOCYTES % (AUTO) 8.4 % (1.0-10.0); NEUTROPHILS % (AUTO) 67.7 % (45.0-75.0); PLATELET COUNT 187 K/UL (150-450); RED BLOOD COUNT 3.29 M/UL (4.70-6.10); WHITE BLOOD COUNT 5.2 K/UL (4.8-10.8)
[2017-03-15 07:15] LABS: THYROID STIMULATING HORMONE 2.42 uIU/mL (0.300-4.500)
[2017-03-15 07:25] LABS: CRP QUANT 4.1 mg/dL (< 0.5); MAGNESIUM 2.2 mg/dL (1.7-2.5); PHOSPHORUS 4.4 mg/dL (2.5-4.8); URIC ACID 9.5 mg/dL (3.0-7.5)
[2017-03-15 07:35] LABS: HEMOLYSIS 1; IRON 29 ug/dL (59-158); TOTAL IRON BINDING CAPACITY 191 ug/dL (250-400)
[2017-03-15] MEDS: Allopurinol 100mg Tab ORAL SCH (08:27)
[2017-03-15] MEDS: Carvedilol 25mg Tab ORAL SCH ×2 (08:28→21:44)
[2017-03-15] MEDS: Tamsulosin 0.4mg cap ORAL SCH ×2 (08:28→18:10)
[2017-03-15] MEDS: Heparin 5000 units/ml inj SUBQ SCH ×2 (08:30→21:00)
--- NOTE | 2017-03-15 09:32 | General Progress Note ---
Assessment/Plan Status Narrative breathing easier Assessment/Plan status: Renal failure- Acute vs Chronic, likely chronic 4+ Peoteinuria , etiology ?? Anemia ? CKD , r/o GI loss HTN DM unlikely as A1c WNL Plan: 2D Echo: 40% EjFx Kidney JACKSON- pending avoid nephrotoxics- monitor renal parameters Urine studies Per orders Subjective ROS Limited/Unobtainable: No Constitutional: Reports: malaise, weakness Allergies: Coded Allergies: No Known Allergies (Unverified , 03/13/17) Objective Last 24 Hour Vital Signs Date Time Temp Pulse Resp B/P Pulse Ox O2 Delivery O2 Flow Rate FiO2 03/15/17 08:28 78 138/77 03/15/17 08:28 78 138/77 03/15/17 07:46 97.8 78 18 138/77 100 Nasal Cannula 4.0 03/15/17 07:02 78 18 Nasal Cannula 4.0 36 03/15/17 07:02 95 Nasal Cannula 4.0 36 03/15/17 07:02 Nasal Cannula 4.0 36 03/15/17 06:03 152/83 03/15/17 04:11 97.1 77 18 152/83 98 Nasal Cannula 4.0 03/15/17 04:00 76 03/15/17 00:05 97.7 72 19 140/68 99 Nasal Cannula 4.0 03/15/17 00:00 70 03/14/17 21:47 138/74 03/14/17 21:28 70 138/74 03/14/17 20:13 97.9 70 20 138/74 99 Nasal Cannula 4.0 03/14/17 20:12 70 69 78 03/14/17 20:00 71 03/14/17 19:02 96 Nasal Cannula 4.0 36 03/14/17 19:02 Nasal Cannula 4.0 36 03/14/17 19:02 74 18 Nasal Cannula 4.0 36 03/14/17 16:00 70 03/14/17 16:00 97.9 86 19 132/64 97 Nasal Cannula 2.0 83 03/14/17 12:00 69 03/14/17 12:00 95.9 72 17 131/72 98 Nasal Cannula 2.0 74 Intake and Output 03/14/17 03/15/17 19:00 07:00 Intake Total 1010 ml Output Total 3500 ml 1800 ml Balance -2490 ml -1800 ml Intake Oral 1010 ml Output Urine Total 3500 ml 1800 ml # Bowel Movements 1 1 Laboratory Tests 03/15/17 06:20: White Blood Count 5.2, Red Blood Count 3.29L, Hemoglobin 9.3L, Hematocrit 29.5L , Mean Corpuscular Volume 90, Mean Corpuscular Hemoglobin 28.3, Mean Corpuscular Hemoglobin Concent 31.6L, Red Cell Distribution Width 14.0, Platelet Count 187, Mean Platelet Volume 6.6, Neutrophils (%) (Auto) 67.7, Lymphocytes (%) (Auto) 20.0, Monocytes (%) (Auto) 8.4, Eosinophils (%) (Auto) 3.4H, Basophils (%) (Auto) 0.5, Sodium Level 143, Potassium Level 4.0, Chloride Level 106, Carbon Dioxide Level 22, Anion Gap 15, Blood Urea Nitrogen 58H, Creatinine 3.7H, Estimat Glomerular Filtration Rate 20.7, Glucose Level 100, Hemoglobin A1c 5.0, Uric Acid 9.5H, Calcium Level 8.5L, Phosphorus Level 4.4, Magnesium Level 2.2, Iron Level 29L, Total Iron Binding Capacity 191L, Percent Iron Saturation 15, Unsaturated Iron Binding 162, Ferritin 242H, Total Bilirubin 0.3, Gamma Glutamyl Transpeptidase 36, Aspartate Amino Transf (AST/ SGOT) 14, Alanine Aminotransferase (ALT/SGPT) 26, Alkaline Phosphatase 100, Total Creatine Kinase 57, Troponin I < 0.30, C-Reactive Protein, Quantitative 4.1H, Pro-B-Type Natriuretic Peptide 1605H, Total Protein 6.4L, Albumin 3.5, Globulin 2.9, Albumin/Globulin Ratio 1.2, Triglycerides Level 128, Cholesterol Level 184, LDL Cholesterol 110H, HDL Cholesterol 48, Cholesterol/HDL Ratio 3.8, Vitamin B12 Level 373, Folate [Pending], Thyroid Stimulating Hormone (TSH) 2.420 Height (Feet): 6 Height (Inches): 1.00 Weight (Pounds): 262 General Appearance: no apparent distress Cardiovascular: regular rhythm Respiratory/Chest: decreased breath sounds Abdomen: soft ELOISE OLIVEROS Mar 15, 2017 09:32
[2017-03-15] MEDS ORDERED: Iron Sucrose 200 MG in NS 110 ML IVPB ONE (10:30)
--- NOTE | 2017-03-15 10:30 | Diagnostic Imaging Report ---
Indication: Acute renal failure Technique: Grayscale and duplex images of the kidneys, retroperitoneum, and bladder were obtained. Comparison:None Findings: Right kidney measures 12.2 cm in length. Left kidney measures 12 cm in length. Both kidneys demonstrate normal echogenicity. No hydronephrosis. 2 small exophytic cysts are seen in the left renal interpolar region, largest measuring 15 mm diameter. Echogenic foci are seen in the renal sinuses bilaterally.. Normal inferior vena cava. Bladder is empty, contains a Pfeiffer catheter. Impression: Negative for hydronephrosis Small bilateral renal sinus calcifications, may represent small nonobstructive calyceal calculi, versus artifacts Incidental finding small left renal cyst.
[2017-03-15] MEDS ORDERED: Vitamin B12 1000mcg/ml Inj IM SCH (11:00)
--- NOTE | 2017-03-15 11:02 | Diagnostic Imaging Report ---
Indication: DYSPNEA Technique: One view of the chest Comparison: 03/13/2017 Findings: Patient is rotated slightly to the right. The heart is enlarged. Lungs and pleural spaces are clear. There is interim resolution of previously demonstrated interstitial congestion. Impression: Interstitial congestion has resolved, over 2 days. Stable cardiomegaly
--- NOTE | 2017-03-15 13:45 | Pulmonology Progress Note ---
Assessment/Plan Problems: (1) Acute encephalopathy (2) ATN (acute tubular necrosis) (3) Congestive heart failure Assessment/Plan doing better echo noted, EF of 45% continue lasix check electrolytes and bnp, cxr in am all consults reviewed renal Us negative, ? etiology of renal failure Subjective ROS Limited/Unobtainable: No Constitutional: Reports: no symptoms HEENT: Repors: no symptoms Allergies: Coded Allergies: No Known Allergies (Unverified , 03/13/17) Objective Last 24 Hour Vital Signs Date Time Temp Pulse Resp B/P Pulse Ox O2 Delivery O2 Flow Rate FiO2 03/15/17 11:24 97.9 73 18 142/73 97 Nasal Cannula 4.0 73 03/15/17 08:28 78 138/77 03/15/17 08:28 78 138/77 03/15/17 07:46 97.8 78 18 138/77 100 Nasal Cannula 4.0 03/15/17 07:02 78 18 Nasal Cannula 4.0 36 03/15/17 07:02 95 Nasal Cannula 4.0 36 03/15/17 07:02 Nasal Cannula 4.0 36 03/15/17 06:03 152/83 03/15/17 04:11 97.1 77 18 152/83 98 Nasal Cannula 4.0 03/15/17 04:00 76 03/15/17 00:05 97.7 72 19 140/68 99 Nasal Cannula 4.0 03/15/17 00:00 70 03/14/17 21:47 138/74 03/14/17 21:28 70 138/74 03/14/17 20:13 97.9 70 20 138/74 99 Nasal Cannula 4.0 03/14/17 20:12 70 69 78 03/14/17 20:00 71 03/14/17 19:02 96 Nasal Cannula 4.0 36 03/14/17 19:02 Nasal Cannula 4.0 36 03/14/17 19:02 74 18 Nasal Cannula 4.0 36 03/14/17 16:00 70 03/14/17 16:00 97.9 86 19 132/64 97 Nasal Cannula 2.0 83 Intake and Output 03/14/17 03/15/17 19:00 07:00 Intake Total 1010 ml Output Total 3500 ml 1800 ml Balance -2490 ml -1800 ml Intake Oral 1010 ml Output Urine Total 3500 ml 1800 ml # Bowel Movements 1 1 General Appearance: WD/WN HEENT: normocephalic, anicteric Respiratory/Chest: chest wall non-tender, lungs clear Cardiovascular: normal peripheral pulses, normal rate, regular rhythm Abdomen: normal bowel sounds, soft, non tender Genitourinary: normal external genitalia Extremities: no clubbing 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 Laboratory Tests 03/15/17 06:20: White Blood Count 5.2, Red Blood Count 3.29L, Hemoglobin 9.3L, Hematocrit 29.5L , Mean Corpuscular Volume 90, Mean Corpuscular Hemoglobin 28.3, Mean Corpuscular Hemoglobin Concent 31.6L, Red Cell Distribution Width 14.0, Platelet Count 187, Mean Platelet Volume 6.6, Neutrophils (%) (Auto) 67.7, Lymphocytes (%) (Auto) 20.0, Monocytes (%) (Auto) 8.4, Eosinophils (%) (Auto) 3.4H, Basophils (%) (Auto) 0.5, Sodium Level 143, Potassium Level 4.0, Chloride Level 106, Carbon Dioxide Level 22, Anion Gap 15, Blood Urea Nitrogen 58H, Creatinine 3.7H, Estimat Glomerular Filtration Rate 20.7, Glucose Level 100, Hemoglobin A1c 5.0, Uric Acid 9.5H, Calcium Level 8.5L, Phosphorus Level 4.4, Magnesium Level 2.2, Iron Level 29L, Total Iron Binding Capacity 191L, Percent Iron Saturation 15, Unsaturated Iron Binding 162, Ferritin 242H, Total Bilirubin 0.3, Gamma Glutamyl Transpeptidase 36, Aspartate Amino Transf (AST/ SGOT) 14, Alanine Aminotransferase (ALT/SGPT) 26, Alkaline Phosphatase 100, Total Creatine Kinase 57, Troponin I < 0.30, C-Reactive Protein, Quantitative 4.1H, Pro-B-Type Natriuretic Peptide 1605H, Total Protein 6.4L, Albumin 3.5, Globulin 2.9, Albumin/Globulin Ratio 1.2, Triglycerides Level 128, Cholesterol Level 184, LDL Cholesterol 110H, HDL Cholesterol 48, Cholesterol/HDL Ratio 3.8, Vitamin B12 Level 373, Folate [Pending], Thyroid Stimulating Hormone (TSH) 2.420 Current Medications Medications (Trade) Dose Ordered Sig/Emmy Route PRN Reason Start Time Stop Time Status Last Admin Dose Admin Acetaminophen (Tylenol) 650 mg Q4H PRN ORAL Fever 03/13/17 15:45 04/12/17 15:44 03/13/17 22:26 Albuterol/ Ipratropium (DuoNeb 0.5-3(2.5)mg/3ml) 3 ml EVERY 4 HOURS PRN HHN Shortness of Breath 03/13/17 15:45 03/18/17 15:44 Allopurinol (Allopurinol) 300 mg DAILY ORAL 03/15/17 09:00 04/14/17 08:59 03/15/17 08:28 Amlodipine Besylate (Norvasc) 10 mg DAILY ORAL 03/14/17 09:00 04/13/17 08:59 03/15/17 08:28 Atorvastatin Calcium (Lipitor) 20 mg BEDTIME ORAL 03/13/17 21:00 04/12/17 20:59 03/14/17 21:29 Carvedilol (Coreg) 25 mg EVERY 12 HOURS ORAL 03/13/17 21:00 04/12/17 20:59 03/15/17 08:28 Cyanocobalamin (Vitamin B12) 1,000 mcg DAILY IM 03/15/17 11:00 03/17/17 09:01 03/15/17 11:10 Dextrose (Dextrose 50%) STAT PRN IV Hypoglycemia 03/13/17 15:45 04/12/17 15:44 Furosemide (Lasix) 40 mg DAILY IV 03/16/17 09:00 04/15/17 08:59 Heparin Sodium (Porcine) (Heparin 5000 units/ml) 5,000 units EVERY 12 HOURS SUBQ 03/13/17 21:00 04/12/17 20:59 03/15/17 08:30 Hydralazine HCl (Apresoline) 37.5 mg Q8HR ORAL 03/15/17 14:00 04/14/17 13:59 Insulin Aspart (NovoLOG) BEFORE MEALS AND HS SUBQ 03/13/17 16:30 04/12/17 16:29 03/14/17 21:28 Ondansetron HCl (Zofran) 4 mg Q6H PRN IVP Nausea & Vomiting 03/13/17 15:45 04/12/17 15:44 03/13/17 18:58 Pantoprazole (Protonix) 40 mg DAILY ORAL 03/15/17 10:00 04/14/17 09:59 03/15/17 11:10 Polyethylene Glycol (Miralax) 17 gm DAILYPRN PRN ORAL Constipation 03/13/17 15:45 04/12/17 15:44 Tamsulosin HCl (Flomax) 0.4 mg BID ORAL 03/14/17 18:00 04/13/17 17:59 03/15/17 08:28 Temazepam (Restoril) 15 mg HSPRN PRN ORAL Insomnia 03/13/17 15:45 03/20/17 15:44 NIRU COWAN Mar 15, 2017 13:45
[2017-03-15] MEDS ORDERED: HydrALAZINE 25mg tab ORAL SCH (14:00)
[2017-03-15] MEDS ORDERED: Tubing IV Secondary IV ONE (16:48)
[2017-03-15] MEDS ORDERED: NS 275ml ONE (16:48)
[2017-03-15] MEDS ORDERED: Miralax 17gm pkt ORAL PRN (19:46)
[2017-03-15] MEDS ORDERED: DuoNeb 0.5-3(2.5)mg/3ml neb HHN PRN (21:00)
[2017-03-15] MEDS: Atorvastatin 20mg tab ORAL SCH (21:00)
[2017-03-16] VITALS (8 sets, daily range): BP systolic 111–155; BP diastolic 64–81
[2017-03-16] MEDS: NovoLOG Insulin Flexpen SUBQ SCH ×4 (05:46→20:47)
[2017-03-16] MEDS: HydrALAZINE 25mg tab ORAL SCH ×3 (05:46→22:57)
[2017-03-16 07:14] LABS: BASOPHILS % (AUTO) 0.3 % (0.0-2.0); EOSINOPHILS % (AUTO) 3.2 % (0.0-3.0); LYMPHOCYTES % (AUTO) 22.4 % (20.0-45.0); MEAN CORPUSCULAR HEMOGLOBIN 28.8 PG (27.0-31.0); MEAN CORPUSCULAR VOLUME 90 FL (80-99); MONOCYTES % (AUTO) 7.9 % (1.0-10.0); NEUTROPHILS % (AUTO) 66.2 % (45.0-75.0); PLATELET COUNT 182 K/UL (150-450); RED BLOOD COUNT 3.11 M/UL (4.70-6.10); RED CELL DISTRIBUTION WIDTH 13.8 % (11.6-14.8); WHITE BLOOD COUNT 5.8 K/UL (4.8-10.8)
[2017-03-16 07:45] LABS: ALBUMIN/GLOBULIN RATIO 1.1 (1.0-2.7); CALCIUM 8.4 mg/dL (8.6-10.2); CREATININE 3.9 mg/dL (0.7-1.2); GLOMERULAR FILTRATION RATE 19.5 mL/min (>60); MAGNESIUM 2.2 mg/dL (1.7-2.5); PHOSPHORUS 4.7 mg/dL (2.5-4.8); TOTAL PROTEIN 6.1 g/dL (6.6-8.7); URIC ACID 9.5 mg/dL (3.0-7.5)
[2017-03-16] MEDS: Carvedilol 25mg Tab ORAL SCH ×2 (09:14→20:41)
[2017-03-16] MEDS: Tamsulosin 0.4mg cap ORAL SCH ×2 (09:14→17:15)
[2017-03-16] MEDS: Vitamin B12 1000mcg/ml Inj IM SCH (09:15)
[2017-03-16] MEDS: Heparin 5000 units/ml inj SUBQ SCH ×2 (09:15→20:45)
--- NOTE | 2017-03-16 11:27 | General Progress Note ---
Assessment/Plan Status: stable Status Narrative Cr higher- No sign of CHF Assessment/Plan status: Renal failure- Acute vs Chronic, likely chronic 4+ Peoteinuria , etiology ?? Anemia ? CKD , r/o GI loss HTN DM unlikely as A1c WNL Plan: 2D Echo: 40% EjFx Kidney JACKSON- no obstruction avoid nephrotoxics- monitor renal parameters Urine studies in process DEMETRIUS oreilly change lasix to po Per orders Subjective ROS Limited/Unobtainable: No Constitutional: Reports: malaise Allergies: Coded Allergies: No Known Allergies (Unverified , 03/13/17) Objective Last 24 Hour Vital Signs Date Time Temp Pulse Resp B/P Pulse Ox O2 Delivery O2 Flow Rate FiO2 03/16/17 09:55 69 136/75 03/16/17 09:14 74 111/64 03/16/17 09:14 74 111/64 03/16/17 08:05 97.5 74 14 111/64 99 Room Air 03/16/17 07:20 Nasal Cannula 3.0 32 03/16/17 07:20 74 16 Nasal Cannula 3.0 32 03/16/17 07:20 99 Nasal Cannula 3.0 32 03/16/17 05:46 155/76 03/16/17 04:00 98.1 77 18 155/76 100 Nasal Cannula 5.0 03/16/17 00:00 97.9 71 18 112/64 98 Room Air 03/15/17 22:00 71 72 81 03/15/17 22:00 119/68 03/15/17 21:44 73 119/68 03/15/17 20:00 98.2 73 18 119/68 100 Room Air 03/15/17 18:57 96 Nasal Cannula 3.0 32 03/15/17 18:57 Nasal Cannula 3.0 32 03/15/17 18:57 81 18 Nasal Cannula 3.0 32 03/15/17 16:00 72 03/15/17 15:24 97.3 72 18 141/68 99 Nasal Cannula 4.0 36 72 03/15/17 15:19 100.8 103 19 158/69 Nasal Cannula 3.0 103 03/15/17 14:10 81 03/15/17 14:05 80 03/15/17 14:00 72 03/15/17 13:57 142/73 03/15/17 12:00 72 03/15/17 11:24 97.9 73 18 142/73 97 Nasal Cannula 4.0 73 Intake and Output 03/15/17 03/16/17 19:00 07:00 Intake Total 840 ml Output Total 850 ml Balance 840 ml -850 ml Intake Oral 720 ml IV Total 120 ml Output Urine Total 850 ml Laboratory Tests 03/16/17 05:05: White Blood Count 5.8, Red Blood Count 3.11L, Hemoglobin 8.9L, Hematocrit 28.0L , Mean Corpuscular Volume 90, Mean Corpuscular Hemoglobin 28.8, Mean Corpuscular Hemoglobin Concent 32.0, Red Cell Distribution Width 13.8, Platelet Count 182, Mean Platelet Volume 7.0, Neutrophils (%) (Auto) 66.2, Lymphocytes (% ) (Auto) 22.4, Monocytes (%) (Auto) 7.9, Eosinophils (%) (Auto) 3.2H, Basophils (%) (Auto) 0.3, Sodium Level 146H, Potassium Level 4.0, Chloride Level 107, Carbon Dioxide Level 22, Anion Gap 17H, Blood Urea Nitrogen 56H, Creatinine 3.9H , Estimat Glomerular Filtration Rate 19.5, Glucose Level 113H, Uric Acid 9.5H, Calcium Level 8.4L, Phosphorus Level 4.7, Magnesium Level 2.2, Total Bilirubin 0.2, Aspartate Amino Transf (AST/SGOT) 11, Alanine Aminotransferase (ALT/SGPT) 23, Alkaline Phosphatase 93, C-Reactive Protein, Quantitative 2.0H, Pro-B-Type Natriuretic Peptide 1312H, Total Protein 6.1L, Albumin 3.3L, Globulin 2.8, Albumin/Globulin Ratio 1.1 Height (Feet): 6 Height (Inches): 1.00 Weight (Pounds): 263 General Appearance: no apparent distress Cardiovascular: normal rate Respiratory/Chest: decreased breath sounds Abdomen: soft Objective no other changes in PE ELOISE OLIVEROS Mar 16, 2017 11:27
[2017-03-16 13:49] LABS: CREATININE 3.9 mg/dL (0.7-1.2); GLOMERULAR FILTRATION RATE 19.5 mL/min (>60)
[2017-03-16] MEDS: Atorvastatin 20mg tab ORAL SCH (20:41)
--- NOTE | 2017-03-16 22:42 | Pulmonology Progress Note ---
Assessment/Plan Problems: (1) Acute encephalopathy (2) ATN (acute tubular necrosis) (3) Congestive heart failure Assessment/Plan doing better echo noted, EF of 45% continue lasix check electrolytes and bnp, cxr in am all consults reviewed nephrotic syndorm f/u by nephrology renal Us negative, ? etiology of renal failure Subjective ROS Limited/Unobtainable: No Interval Events: feeling better Allergies: Coded Allergies: No Known Allergies (Unverified , 03/13/17) Objective Last 24 Hour Vital Signs Date Time Temp Pulse Resp B/P Pulse Ox O2 Delivery O2 Flow Rate FiO2 03/16/17 20:41 79 136/81 03/16/17 20:38 79 78 79 03/16/17 20:18 97 Nasal Cannula 3.0 32 03/16/17 20:18 Nasal Cannula 3.0 32 03/16/17 20:17 68 18 Nasal Cannula 3.0 32 03/16/17 20:00 97.7 79 20 136/81 99 Nasal Cannula 2.0 03/16/17 16:42 Nasal Cannula 2.0 03/16/17 16:11 97.7 68 14 128/69 100 03/16/17 13:56 135/75 03/16/17 11:33 97.7 69 16 135/75 100 Room Air 03/16/17 09:55 69 136/75 03/16/17 09:14 74 111/64 03/16/17 09:14 74 111/64 03/16/17 09:00 99 70 75 03/16/17 08:05 97.5 74 14 111/64 99 Room Air 03/16/17 07:20 Nasal Cannula 3.0 32 03/16/17 07:20 74 16 Nasal Cannula 3.0 32 03/16/17 07:20 99 Nasal Cannula 3.0 32 03/16/17 05:46 155/76 03/16/17 04:00 98.1 77 18 155/76 100 Nasal Cannula 5.0 03/16/17 00:00 97.9 71 18 112/64 98 Room Air Intake and Output 03/15/17 03/16/17 19:00 07:00 Intake Total 840 ml Output Total 850 ml Balance 840 ml -850 ml Intake Oral 720 ml IV Total 120 ml Output Urine Total 850 ml Objective General Appearance: WD/WN HEENT: normocephalic, atraumatic Respiratory/Chest: chest wall non-tender, lungs clear Cardiovascular: normal peripheral pulses, normal rate Abdomen: normal bowel sounds, soft, non tender Genitourinary: normal external genitalia Extremities: no cyanosis, edema Lymphatic: no neck adenopathy General Appearance: WD/WN Laboratory Tests 03/16/17 05:05: White Blood Count 5.8, Red Blood Count 3.11L, Hemoglobin 8.9L, Hematocrit 28.0L , Mean Corpuscular Volume 90, Mean Corpuscular Hemoglobin 28.8, Mean Corpuscular Hemoglobin Concent 32.0, Red Cell Distribution Width 13.8, Platelet Count 182, Mean Platelet Volume 7.0, Neutrophils (%) (Auto) 66.2, Lymphocytes (% ) (Auto) 22.4, Monocytes (%) (Auto) 7.9, Eosinophils (%) (Auto) 3.2H, Basophils (%) (Auto) 0.3, Sodium Level 146H, Potassium Level 4.0, Chloride Level 107, Carbon Dioxide Level 22, Anion Gap 17H, Blood Urea Nitrogen 56H, Creatinine 3.9H , Estimat Glomerular Filtration Rate 19.5, Glucose Level 113H, Uric Acid 9.5H, Calcium Level 8.4L, Phosphorus Level 4.7, Magnesium Level 2.2, Total Bilirubin 0.2, Aspartate Amino Transf (AST/SGOT) 11, Alanine Aminotransferase (ALT/SGPT) 23, Alkaline Phosphatase 93, C-Reactive Protein, Quantitative 2.0H, Pro-B-Type Natriuretic Peptide 1312H, Total Protein 6.1L, Albumin 3.3L, Globulin 2.8, Albumin/Globulin Ratio 1.1 03/16/17 12:00: Creatinine 3.9H, Estimat Glomerular Filtration Rate 19.5, Urine Collection Time 24, Urine Total Volume 2500, Urine Creatinine 90, Urine Creatinine 24 Hour 2250 , Patient Height Inches (Creat Clear) 73, Patient Weight Pounds (Creat Clear) 263.1, Creatinine Clearance 29L, Urine Total Protein mg/dL 246, Urine Total Protein 24 Hour 6150.0H Current Medications Medications (Trade) Dose Ordered Sig/Emmy Route PRN Reason Start Time Stop Time Status Last Admin Dose Admin Acetaminophen (Tylenol) 650 mg Q4H PRN ORAL Fever 03/15/17 19:45 04/14/17 19:44 Albuterol/ Ipratropium (DuoNeb 0.5-3(2.5)mg/3ml) 3 ml Q4H PRN HHN Shortness of Breath 03/15/17 21:00 03/20/17 20:59 Allopurinol (Allopurinol) 150 mg DAILY ORAL 03/16/17 09:00 04/15/17 08:59 03/16/17 09:14 Amlodipine Besylate (Norvasc) 10 mg DAILY ORAL 03/16/17 09:00 04/15/17 08:59 03/16/17 09:14 Atorvastatin Calcium (Lipitor) 20 mg BEDTIME ORAL 03/15/17 21:00 04/14/17 20:59 03/16/17 20:41 Carvedilol (Coreg) 25 mg EVERY 12 HOURS ORAL 03/15/17 21:00 04/14/17 20:59 03/16/17 20:41 Cyanocobalamin (Vitamin B12) 1,000 mcg DAILY IM 03/16/17 09:00 03/17/17 09:01 03/16/17 09:15 Dextrose (Dextrose 50%) STAT PRN IV Hypoglycemia 03/15/17 19:45 04/14/17 19:44 Furosemide (Lasix) 80 mg DAILY ORAL 03/17/17 09:00 04/16/17 08:59 Heparin Sodium (Porcine) (Heparin 5000 units/ml) 5,000 units EVERY 12 HOURS SUBQ 03/15/17 21:00 04/14/17 20:59 03/16/17 20:45 Hydralazine HCl (Apresoline) 37.5 mg Q8HR ORAL 03/15/17 22:00 04/14/17 21:59 03/16/17 13:56 Insulin Aspart (NovoLOG) BEFORE MEALS AND HS SUBQ 03/15/17 21:00 04/14/17 20:59 03/16/17 17:17 Ondansetron HCl (Zofran) 4 mg Q6H PRN IVP Nausea & Vomiting 03/15/17 21:45 04/14/17 21:44 Pantoprazole (Protonix) 40 mg DAILY ORAL 03/16/17 09:00 04/15/17 08:59 03/16/17 09:13 Polyethylene Glycol (Miralax) 17 gm DAILYPRN PRN ORAL Constipation 03/15/17 19:46 04/14/17 19:45 Tamsulosin HCl (Flomax) 0.4 mg BID ORAL 03/16/17 09:00 04/15/17 08:59 03/16/17 17:15 Temazepam (Restoril) 15 mg HSPRN PRN ORAL Insomnia 03/15/17 19:46 03/22/17 19:45 NIRU COWAN Mar 16, 2017 22:42
[2017-03-17 04:00] VITALS: BP 124/68
[2017-03-17] MEDS: HydrALAZINE 25mg tab ORAL SCH (06:08)
[2017-03-17] MEDS: NovoLOG Insulin Flexpen SUBQ SCH ×2 (06:09→11:32)
[2017-03-17 07:31] LABS: BASOPHILS % (AUTO) 0.5 % (0.0-2.0); EOSINOPHILS % (AUTO) 4.2 % (0.0-3.0); LYMPHOCYTES % (AUTO) 26.1 % (20.0-45.0); MEAN CORPUSCULAR HEMOGLOBIN 28.8 PG (27.0-31.0); MEAN CORPUSCULAR HGB CONC 32.2 G/DL (32.0-36.0); MEAN CORPUSCULAR VOLUME 89 FL (80-99); MEAN PLATELET VOLUME 6.6 FL (6.5-10.1); MONOCYTES % (AUTO) 8.9 % (1.0-10.0); NEUTROPHILS % (AUTO) 60.3 % (45.0-75.0); PLATELET COUNT 185 K/UL (150-450); RED BLOOD COUNT 3.13 M/UL (4.70-6.10); RED CELL DISTRIBUTION WIDTH 13.5 % (11.6-14.8); WHITE BLOOD COUNT 4.1 K/UL (4.8-10.8)
[2017-03-17 07:54] LABS: ALANINE AMINOTRANSFERASE 19 U/L (3-41); ALBUMIN/GLOBULIN RATIO 1.3 (1.0-2.7); ANION GAP 15 (5-15); ASPARTATE AMINO TRANSFERASE 12 U/L (5-40); CALCIUM 8.2 mg/dL (8.6-10.2); CARBON DIOXIDE 24 mEQ/L (20-30); CHLORIDE 105 mEQ/L (98-107); CREATININE 3.4 mg/dL (0.7-1.2); CRP QUANT 1.1 mg/dL (< 0.5); GLOMERULAR FILTRATION RATE 22.9 mL/min (>60); HEMOLYSIS 0; MAGNESIUM 2.1 mg/dL (1.7-2.5); PHOSPHORUS 4.3 mg/dL (2.5-4.8); SODIUM 144 mEQ/L (135-145); URIC ACID 9.2 mg/dL (3.0-7.5)
[2017-03-17 08:08] VITALS: BP 146/80
[2017-03-17] MEDS: Vitamin B12 1000mcg/ml Inj IM SCH (08:39)
[2017-03-17] MEDS: Tamsulosin 0.4mg cap ORAL SCH (08:39)
[2017-03-17] MEDS: Heparin 5000 units/ml inj SUBQ SCH (08:46)
[2017-03-17] MEDS ORDERED: Furosemide 80mg tab ORAL SCH (09:00)
[2017-03-17] MEDS: Carvedilol 25mg Tab ORAL SCH (09:00)
--- NOTE | 2017-03-17 11:18 | General Progress Note ---
Assessment/Plan Assessment/Plan status: Renal failure- Acute vs Chronic, likely chronic 4+ Peoteinuria , etiology ?? Anemia ? CKD , r/o GI loss HTN DM unlikely as A1c WNL Nephrotic Syndrom Plan: need kidney Bx as out patient- Patient is followed by Dr Lane as OP, discussed to follow for kidney issues 2D Echo: 40% EjFx Kidney JACKSON- no obstruction avoid nephrotoxics- monitor renal parameters Urine studies in process DC oreilly change lasix to po Per orders OK to DC and follow up as OP Subjective ROS Limited/Unobtainable: No Constitutional: Reports: malaise Allergies: Coded Allergies: No Known Allergies (Unverified , 03/13/17) Objective Last 24 Hour Vital Signs Date Time Temp Pulse Resp B/P Pulse Ox O2 Delivery O2 Flow Rate FiO2 03/17/17 09:00 71 146/80 03/17/17 08:39 71 146/80 03/17/17 08:10 Room Air 03/17/17 08:10 99 Room Air 03/17/17 08:10 71 18 Room Air 03/17/17 08:08 97.3 69 20 146/80 100 Nasal Cannula 2.0 03/17/17 06:08 124/68 03/17/17 04:00 98.1 74 20 124/68 100 Nasal Cannula 2.0 03/16/17 23:59 97.9 70 20 125/66 96 Nasal Cannula 20.0 03/16/17 22:57 125/66 03/16/17 20:41 79 136/81 03/16/17 20:38 79 78 79 03/16/17 20:18 97 Nasal Cannula 3.0 32 03/16/17 20:18 Nasal Cannula 3.0 32 03/16/17 20:17 68 18 Nasal Cannula 3.0 32 03/16/17 20:00 97.7 79 20 136/81 99 Nasal Cannula 2.0 03/16/17 16:42 Nasal Cannula 2.0 03/16/17 16:11 97.7 68 14 128/69 100 03/16/17 13:56 135/75 03/16/17 11:33 97.7 69 16 135/75 100 Room Air Intake and Output 03/16/17 03/17/17 19:00 07:00 Intake Total 2500 ml Output Total 300 ml Balance 2200 ml Intake Oral 2500 ml Output Urine Total 300 ml # Voids 4 1 # Bowel Movements 1 Laboratory Tests 03/16/17 12:00: Urine Collection Time 24, Urine Total Volume 2500, Urine Creatinine 90, Urine Creatinine 24 Hour 2250, Patient Height Inches (Creat Clear) 73, Patient Weight Pounds (Creat Clear) 263.1, Creatinine Clearance 29L, Urine Total Protein mg/dL 246, Urine Total Protein 24 Hour 6150.0H, Creatinine 3.9H, Estimat Glomerular Filtration Rate 19.5 03/17/17 05:10: Creatinine 3.4H, Estimat Glomerular Filtration Rate 22.9, White Blood Count 4.1L , Red Blood Count 3.13L, Hemoglobin 9.0L, Hematocrit 28.0L, Mean Corpuscular Volume 89, Mean Corpuscular Hemoglobin 28.8, Mean Corpuscular Hemoglobin Concent 32.2, Red Cell Distribution Width 13.5, Platelet Count 185, Mean Platelet Volume 6.6, Neutrophils (%) (Auto) 60.3, Lymphocytes (%) (Auto) 26.1, Monocytes (%) (Auto) 8.9, Eosinophils (%) (Auto) 4.2H, Basophils (%) (Auto) 0.5 , Sodium Level 144, Potassium Level 4.0, Chloride Level 105, Carbon Dioxide Level 24, Anion Gap 15, Blood Urea Nitrogen 51H, Glucose Level 114H, Uric Acid 9.2H, Calcium Level 8.2L, Phosphorus Level 4.3, Magnesium Level 2.1, Total Bilirubin < 0.2, Aspartate Amino Transf (AST/SGOT) 12, Alanine Aminotransferase (ALT/SGPT) 19, Alkaline Phosphatase 95, C-Reactive Protein, Quantitative 1.1H, Pro-B-Type Natriuretic Peptide 1323H, Total Protein 6.0L, Albumin 3.4L, Globulin 2.6, Albumin/Globulin Ratio 1.3 Height (Feet): 6 Height (Inches): 1.00 Weight (Pounds): 258 General Appearance: no apparent distress Objective no other changes in PE ELOISE OLIVEROS Mar 17, 2017 11:18
[2017-03-17 11:46] VITALS: BP 132/67
--- NOTE | 2017-03-17 17:45 | Pulmonology Progress Note ---
Assessment/Plan Problems: (1) Acute encephalopathy (2) ATN (acute tubular necrosis) (3) Congestive heart failure Assessment/Plan doing better echo noted, EF of 45% continue lasix check electrolytes and bnp, cxr in am all consults reviewed nephrotic syndorm f/u by nephrology dc home with outpatient f/u Subjective ROS Limited/Unobtainable: No Interval Events: want to go home Allergies: Coded Allergies: No Known Allergies (Unverified , 03/13/17) Objective Last 24 Hour Vital Signs Date Time Temp Pulse Resp B/P Pulse Ox O2 Delivery O2 Flow Rate FiO2 03/17/17 11:50 72 70 73 03/17/17 11:46 97.4 72 20 132/67 100 Nasal Cannula 2.0 03/17/17 09:00 71 146/80 03/17/17 08:39 71 146/80 03/17/17 08:10 Room Air 03/17/17 08:10 99 Room Air 03/17/17 08:10 71 18 Room Air 03/17/17 08:08 97.3 69 20 146/80 100 Nasal Cannula 2.0 03/17/17 06:08 124/68 03/17/17 04:00 98.1 74 20 124/68 100 Nasal Cannula 2.0 03/16/17 23:59 97.9 70 20 125/66 96 Nasal Cannula 20.0 03/16/17 22:57 125/66 03/16/17 20:41 79 136/81 03/16/17 20:38 79 78 79 03/16/17 20:18 97 Nasal Cannula 3.0 32 03/16/17 20:18 Nasal Cannula 3.0 32 03/16/17 20:17 68 18 Nasal Cannula 3.0 32 03/16/17 20:00 97.7 79 20 136/81 99 Nasal Cannula 2.0 Intake and Output 03/16/17 03/17/17 19:00 07:00 Intake Total 2500 ml Output Total 300 ml Balance 2200 ml Intake Oral 2500 ml Output Urine Total 300 ml # Voids 4 1 # Bowel Movements 1 Objective General Appearance: WD/WN HEENT: normocephalic, atraumatic Respiratory/Chest: chest wall non-tender, lungs clear Cardiovascular: normal peripheral pulses, normal rate Abdomen: normal bowel sounds, soft, non tender Genitourinary: normal external genitalia Extremities: no cyanosis, edema Lymphatic: no neck adenopathy Laboratory Tests 03/17/17 05:10: White Blood Count 4.1L, Red Blood Count 3.13L, Hemoglobin 9.0L, Hematocrit 28.0L , Mean Corpuscular Volume 89, Mean Corpuscular Hemoglobin 28.8, Mean Corpuscular Hemoglobin Concent 32.2, Red Cell Distribution Width 13.5, Platelet Count 185, Mean Platelet Volume 6.6, Neutrophils (%) (Auto) 60.3, Lymphocytes (% ) (Auto) 26.1, Monocytes (%) (Auto) 8.9, Eosinophils (%) (Auto) 4.2H, Basophils (%) (Auto) 0.5, Sodium Level 144, Potassium Level 4.0, Chloride Level 105, Carbon Dioxide Level 24, Anion Gap 15, Blood Urea Nitrogen 51H, Creatinine 3.4H , Estimat Glomerular Filtration Rate 22.9, Glucose Level 114H, Uric Acid 9.2H, Calcium Level 8.2L, Phosphorus Level 4.3, Magnesium Level 2.1, Total Bilirubin < 0.2, Aspartate Amino Transf (AST/SGOT) 12, Alanine Aminotransferase (ALT/SGPT ) 19, Alkaline Phosphatase 95, C-Reactive Protein, Quantitative 1.1H, Pro-B- Type Natriuretic Peptide 1323H, Total Protein 6.0L, Albumin 3.4L, Globulin 2.6, Albumin/Globulin Ratio 1.3 NIRU COWAN Mar 17, 2017 17:45
--- NOTE | 2017-03-18 08:43 | Cardiology Report ---
APPROVED REPORT EXAM: Two-dimensional and M-mode echocardiogram with Doppler and color Doppler. INDICATION Left Ventricular Function M-Mode DIMENSIONS IVSd1.3 (0.7-1.1cm) LVDd5.7 (3.5-5.6cm) PWd0.8 (0.7-1.1cm) IVSs1.8 cm LVDs4.0 (2.5-4.0cm) PWs1.0 cm Technically difficult study due to poor acoustic windows. Study quality precludes accurate assessment of regional wall motion. M-mode measurements not obtainable due to cardiac position. Mild left ventricular enlargement. Mild global left ventricular hypokinesis. Left ventricular ejection fraction estimated to be grossly normal. Mild left ventricular hypertrophy. No evidence of pericardial fat or effusion. Moderate to severe bi-atrial enlargement. Mild right ventricular enlargement. Focal aortic valve sclerosis with adequate cusp excursion. Thickened mitral valve leaflets with normal excursion. Mitral annulus and aortic root calcification. Pulmonic valve not visualized. Normal tricuspid valve structure. IVC dilated at 2.7 cm with slight physiologic collapse suggestive of elevated RAP. A color flow and spectral Doppler study was performed and revealed: No aortic regurgitation. Mild to moderate mitral regurgitation. Mitral inflow velocities indicates possible pseudo normalization pattern implying moderate left ventricular diastolic dysfunction (Grade II). Trace tricuspid regurgitation. Tricuspid systolic velocities suggests peak right ventricular systolic pressure of 17 mmHg.
--- NOTE | 2017-03-18 09:10 | Cardiology Report ---
APPROVED REPORT EKG Measurement Heart [id number] Sinus rhythm with occasional premature ventricular complexes Moderate voltage criteria for LVH, may be normal variant T wave abnormality, consider inferolateral ischemia Abnormal ECG
--- NOTE | 2017-03-18 12:52 | Discharge Summary ---
Discharge Summary Hospital Course Date of Admission Mar 13, 2017 at 14:48 Date of Discharge Mar 17, 2017 at 14:02 Admitting Diagnosis CHF/syncope HPI Rigo Vargas is a 56 year old male who was admitted on Mar 13, 2017 at 14:48 for Congestive Heart Failure,Syncope Hospital Course dc summary #[id number] Discharge Medications Continued Medications: Allopurinol* (Allopurinol*) 100 Mg Tablet 100 MG ORAL DAILY, TAB Amlodipine Besylate* (Amlodipine Besylate*) 10 Mg Tablet 10 MG ORAL DAILY, TAB Atorvastatin Calcium* (Atorvastatin Calcium*) 20 Mg Tablet 20 MG ORAL BEDTIME, TAB Carvedilol* (Carvedilol*) 25 Mg Tablet 25 MG ORAL EVERY 12 HOURS, TAB Furosemide* (Lasix*) 20 Mg Tablet 20 MG ORAL DAILY, TAB Glipizide* (Glipizide*) 5 Mg Tablet 5 MG ORAL BIDAC, TAB Hydralazine Hcl* (Hydralazine Hcl*) 50 Mg Tablet 50 MG ORAL BID, TAB Insulin Glargine (Lantus) 100 Unit/1 Ml Insuln.pen Unknown Dose SUBQ BEDTIME, #1 EA 0 Refills Isosorbide Dinitrate (Isosorbide Dinitrate*) 5 Mg Tablet 10 MG ORAL TID, #30 TAB 0 Refills Tamsulosin Hcl (Tamsulosin Hcl*) 0.4 Mg Cap.er.24h 0.4 MG ORAL BEDTIME, CAP Discharge Condition Upon Discharge: stable Discharge Disposition Patient was discharged to Home (01) Discharge Diagnoses: Discharge Instructions Discharge Instructions Special Instructions I have been assigned to complete a D/C Summary on this account. I was not involved in the patient management Lucía Salinas NP (Vanchtein) Mar 18, 2017 12:52
--- NOTE | 2017-03-19 03:15 | Discharge Summary 2 SIG ---
DATE OF ADMISSION: 03/13/2017 DATE OF DISCHARGE: 03/17/2017 REASON FOR ADMISSION AND HISTORY OF PRESENT ILLNESS: This is a 56-year-old male, who was presented by the paramedics for evaluation of possible syncopal episode. Apparently, [facility] and was slumped over sitting in a chair and was unresponsive. He had been unresponsive since that time. He had been coughing. Pulse oximetry was 94%, according to the paramedics. The patient has a history of Down syndrome and congestive heart failure. Accu-Chek was 167 in the field. Workup in the emergency room revealed elevated blood pressure of 211/134, heart rate 110, afebrile, and pulse oximetry stable on room air. Troponin is negative. No leukocytosis. Hemoglobin and hematocrit as mild anemia, hemoglobin 10.7 and hematocrit 33.4. Coagulation profile was stable. Electrolytes are stable. BUN is 58, creatinine 3.3, and glucose 136. Stable LFT. Troponin is negative. ProBNP is 1675. Urinalysis revealed +4 protein, otherwise negative for evidence for UTI. EKG revealed normal sinus rhythm. No acute changes. Troponin is negative. Chest x-ray revealed interstitial edema. CT of the head revealed no acute intracranial pathology. The patient was admitted for further management. ADMITTING DIAGNOSES: 1. Acute encephalopathy. 2. Syncopal episode. 3. Pulmonary edema. 4. Possible congestive heart failure. 5. Down syndrome. HOSPITAL STAY: The patient was admitted to telemetry floor. Cardiology and Nephrology consult were requested. Blood pressure was managed with multiple regimen of antihypertensive medications including calcium-channel maida, beta-maida, diuretic, hydralazine, and isosorbide. The patient is off the ARB secondary to acute renal failure. Telemetry was negative. EKG was unremarkable, according to plating stripper, possibly question of noncompliance by the patient versus caregiver to give the medication. Echocardiogram revealed ejection fraction of 40% and mild left ventricular hypokinesis. Right ventricular systolic pressure of 17. [id number] mitral regurgitation and moderate diastolic disease, grade 2. The patient was on diuretic, which initially on the IV diuretic. Intake and output, renal parameters, and electrolytes were closely monitored. Nephrotoxics were avoided and changed to the oral. Urine toxicology screen was negative. Mobile Heavy Equipment Operator followed. Renal ultrasound revealed no hydronephrosis, no evidence of obstruction, and revealed normal echogenicity of kidneys bilaterally. Urine study revealed 24-hour of protein over consistent with nephrotic syndrome. The patient will need a kidney biopsy as an outpatient. Pfeiffer was discontinued. Lasix changed to the oral route. Mobile Heavy Equipment Operator again recommended biopsy as an outpatient and avoided nephrotoxic. Acute encephalopathy was likely secondary, syncopal episode possibly due to dehydration on chronic due to the Down syndrome. Mobile Heavy Equipment Operator consulted due to the acute encephalopathy and per perforator loader, the patient had transient episodes of unresponsiveness coincided with decompensated blood pressure, congestive heart failure, and pulmonary edema. When the patient was started on IV fluids and bronchodilator, he started to show gradual improvement and in few days slowly, he appeared to be in the baseline with signs of developmental delay, [id number] swelling, bilateral lower extremity, but no lateralizing effect. No further paroxysmal events noted as neurologist reiterated. CT of the brain revealed no evidence of acute stroke and no pathology. The patient's mental status is back to normal. Blood sugar was managed. Oral anti-glycemic was stable. Hemoglobin A1c is within normal limits of 5. Lipid panel noted. Continue statin. The patient was stable for discharge. DVT prophylaxis provided. DISCHARGE DIAGNOSES: 1. Acute encephalopathy. 2. Acute on chronic renal failure. 3. Possible congestive heart failure. 4. Left ventricular systolic dysfunction. 5. Proteinuria +4. 6. Pulmonary edema. 7. Nephrotic syndrome. 8. Anemia. 9. Down syndrome. 10. Hypertensive urgency. 11. Diabetes mellitus. 12. Syncope. 13. Hyperlipidemia. Hemoglobin and hematocrit remained at the baseline. They were closely monitored. No need for transfusion. Iron panel revealed low iron. Stable B12 and folate level. TSH is within normal limits. The patient was stable for discharge. DISCHARGE INSTRUCTIONS: The patient was discharged home. Follow up with primary care provider in the next week. DISCHARGE MEDICATIONS: See medication reconciliation list. Ana Penaloza M.D. I have been assigned to dictate discharge summary on this account and I was not involved in the patient's management. Lucía Salinas N.P. (vanchtein) DR: Kirby JOB#: [id number] CC:
--- NOTE | 2017-03-19 12:59 | Diagnostic Imaging Report ---
APPROVED REPORT CPT Code: 98379 Present Symptoms Lower Extremity Edema: Bilateral Shortness of breath BILATERAL: Imaging reveals a patent deep venous system bilaterally. There is no evidence of thrombus within the femoral, popliteal or tibial segments. The greater saphenous veins are also within normal limits. Doppler indicates normal spontaneous flow within these segments.
== END 2017-03-17 14:02 | disposition home or self-care (01) | DRG 77 ==
LOC: EDBD 14:04 → EMR 14:44 → 2E 14:48 → EDBEDREQ 15:23 → 2E 16:44 → 4E 03-15 18:48
DX: I67.4 Hypertensive encephalopathy (principal); N17.0 Acute kidney failure with tubular necrosis; E11.22 Type 2 diabetes mellitus with diabetic chronic kidney disease; I16.0 Hypertensive urgency; I50.9 Heart failure, unspecified; I12.9 Hypertensive chronic kidney disease with stage 1 through stage 4 chronic kidney disease, or unspecified chronic kidney disease; N18.9 Chronic kidney disease, unspecified; Q90.9 Down syndrome, unspecified; E78.5 Hyperlipidemia, unspecified; R09.02 Hypoxemia; D63.1 Anemia in chronic kidney disease; F79 Unspecified intellectual disabilities
CPT/HCPCS: 36415; 70450; 71010; 76775; 80048; 80053; 80061; 80069; 80300; 81003; 81050; 82550; 82575; 82607; 82728; 82746; 82962; 82977; 83036; 83540; 83550; 83735; 83880; 84100; 84156; 84443; 84484; 84550; 85025; 85610; 85730; 86140; 93005; 93306; 93970; 94664; 94760; J1815; J2405

== ENCOUNTER 2017-05-30 13:47 | Inpatient (IN) | payer MEDICARE, MEDICAID ==
[~2017-05-30] VITALS: Ht 167.6 cm; Wt 89.4 kg
[~2017-05-30 13:47] MED LIST: ALLOPURINOL100 M1 ORAL; AMLODIPINE BESY10 MG ORAL; ATORVASTATIN CA20 MG ORAL; CARVEDILOL25 MG ORAL; FUROSEMIDE20 M1 ORAL; GLIPIZIDE5 MG ORAL; HYDRALAZINE HCL50 MG ORAL; ISOSORBIDE DINIT5 MG ORAL; LANTUS SOL100 UNIT/1 SUBQ; LOSARTAN POTASS50 MG ORAL; TAMSULOSIN HCL0.4 MG ORAL
[2017-05-30] MEDS ORDERED: PredniSONE 20mg tab ORAL ONE (14:15)
[2017-05-30] MEDS: DuoNeb 0.5-3(2.5)mg/3ml neb HHN SCH ×3 (14:55→23:49)
--- NOTE | 2017-05-30 14:57 | Diagnostic Imaging Report ---
Indication: Dyspnea Comparison: 03/15/17 A single view chest radiograph was obtained. Findings: Interstitial edema and vascular prominence demonstrated with cardiomegaly. The bones are unremarkable in appearance. Impression: No significant change. Probable mild interstitial edema/CHF
[2017-05-30 15:23] VITALS: BP 135/82
--- NOTE | 2017-05-30 15:52 | Emergency Room Report ---
History of Present Illness General Chief Complaint: Upper Respiratory Illness Source: EMS Present Illness HPI 56-year-old male with history of Down's syndrome hypertension chronic renal failure asthma presenting with cough and shortness of breath. +3-4 days. states he has been using pump every 3 hours without relief. denies fever chills.+cough productive with yellow sputum. had recent hospitalization. denies chest pain Allergies: Coded Allergies: No Known Allergies (Unverified , 03/13/17) Patient History Past Medical History: see triage record Past Surgical History: none Pertinent Family History: none Nursing Documentation-PMH Past Medical History: No History, Except For Hx Hypertension: Yes Hx Asthma: Yes Hx Diabetes: Yes Hx Cancer: No Hx Gastrointestinal Problems: No Hx Neurological Problems: No Hx Cerebrovascular Accident: Yes Review of Systems All Other Systems: negative except mentioned in HPI Physical Exam Vital Signs Date Time Temp Pulse Resp B/P (MAP) Pulse Ox O2 Delivery O2 Flow Rate FiO2 05/30/17 13:47 98.1 78 20 135/82 99 Room Air 05/30/17 14:20 2.0 28 Sp02 EP Interpretation: reviewed, normal General Appearance: normal inspection, alert, non-toxic, moderate distress, other - resp distress speaking in complete sentences. +cough Head: normocephalic, atraumatic Eyes: bilateral eye normal inspection, bilateral eye PERRL, bilateral eye EOMI ENT: normal ENT inspection, normal pharynx, normal voice, moist mucus membranes Neck: normal inspection, full range of motion, supple Respiratory: normal inspection, no retraction, no wheezing, respiratory distress, speaking full sentences, other - coarse b/s b/l, chest symmetrical Cardiovascular #1: normal inspection, regular rate, rhythm, no edema, normal capillary refill Gastrointestinal: normal inspection, non tender, soft, non-distended, no guarding Musculoskeletal: normal inspection, back normal, normal range of motion, non- tender Neurologic: normal inspection, alert, oriented x3, responsive, motor strength/ tone normal, sensory intact, normal gait, speech normal Psychiatric: normal inspection, judgement/insight normal, memory normal Skin: normal inspection, normal color, no rash, warm/dry, well hydrated, normal turgor Medical Decision Making ER Course 56yo M p/w sob DDX: asthma exacerbation vs. chf vs. pneumonia ER course: Labs: see below CXR: infiltrate vs. chf EKG: see below Continues to be in mild/moderate respiratory distress w/ cough nebs steroids given antibiotics given Disposition: Patient is to be admitted to med-surg unit. Patient requires inpatient admission for close monitoring of respiratory status and antibiotics D/w hospitalist. Laboratory Tests Test 05/30/17 15:10 White Blood Count 3.9 K/UL (4.8-10.8) L Red Blood Count 3.15 M/UL (4.70-6.10) L Hemoglobin 9.0 G/DL (14.2-18.0) L Hematocrit 28.6 % (42.0-52.0) L Mean Corpuscular Volume 91 FL (80-99) Mean Corpuscular Hemoglobin 28.7 PG (27.0-31.0) Mean Corpuscular Hemoglobin Concent 31.6 G/DL (32.0-36.0) L Red Cell Distribution Width 14.1 % (11.6-14.8) Platelet Count 140 K/UL (150-450) L Mean Platelet Volume 7.0 FL (6.5-10.1) Neutrophils (%) (Auto) 50.3 % (45.0-75.0) Lymphocytes (%) (Auto) 33.8 % (20.0-45.0) Monocytes (%) (Auto) 12.9 % (1.0-10.0) H Eosinophils (%) (Auto) 2.3 % (0.0-3.0) Basophils (%) (Auto) 0.7 % (0.0-2.0) Sodium Level 141 mEQ/L (135-145) Potassium Level 4.0 mEQ/L (3.4-4.9) Chloride Level 106 mEQ/L (98-107) Carbon Dioxide Level 20 mEQ/L (20-30) Anion Gap 15 (5-15) Blood Urea Nitrogen 49 mg/dL (7-23) H Creatinine 3.9 mg/dL (0.7-1.2) H Estimate Glomerular Filtration Rate 19.5 mL/min (>60) Glucose Level 82 mg/dL (74-106) Calcium Level 8.4 mg/dL (8.6-10.2) L Total Bilirubin 0.5 mg/dL (0.0-1.2) Aspartate Amino Transferase (AST) 23 U/L (5-40) Alanine Aminotransferase (ALT) 15 U/L (3-41) Alkaline Phosphatase 78 U/L (40-129) Total Creatine Kinase 457 U/L (38-174) H Creatine Kinase MB 4.3 ng/mL (< 6.7) Creatine Kinase MB Relative Index 0.9 Troponin I < 0.30 ng/mL (<=0.30) Pro-B-Type Natriuretic Peptide 4656 pg/mL (0-125) H Total Protein 6.8 g/dL (6.6-8.7) Albumin 3.9 g/dL (3.5-5.2) Globulin 2.9 g/dL Albumin/Globulin Ratio 1.3 (1.0-2.7) EKG Diagnostic Results Rate: normal Rhythm: NSR ST Segments: other - QT prolonged, TWI I and aVL, +PVCs, no other acute STT changes Chest X-Ray Diagnostic Results Chest X-Ray Diagnostic Results : Chest X-Ray Ordered: Yes # of Views/Limited/Complete: 1 View Indication: Shortness of Breath EP Interpretation: Yes Interpretation: other - pulm vasc congestion vs b/l infiltrates Impression: Other - chf vs. pneumonia Interpreting ER Provider: Electronically signed by Walter Means M.D. Last Vital Signs Date Time Temp Pulse Resp B/P (MAP) Pulse Ox O2 Delivery O2 Flow Rate FiO2 05/30/17 15:23 98.1 74 20 135/82 100 Nasal Cannula 2.0 28 Disposition: ADMITTED INPATIENT Condition: Serious Referrals: MARIELA SOTO (PCP) Walter Means M.D. May 30, 2017 15:52
[2017-05-30 15:54] LABS: BASOPHILS % (AUTO) 0.7 % (0.0-2.0); EOSINOPHILS % (AUTO) 2.3 % (0.0-3.0); LYMPHOCYTES % (AUTO) 33.8 % (20.0-45.0); MEAN CORPUSCULAR HEMOGLOBIN 28.7 PG (27.0-31.0); MEAN CORPUSCULAR HGB CONC 31.6 G/DL (32.0-36.0); MEAN CORPUSCULAR VOLUME 91 FL (80-99); MONOCYTES % (AUTO) 12.9 % (1.0-10.0); NEUTROPHILS % (AUTO) 50.3 % (45.0-75.0); PLATELET COUNT 140 K/UL (150-450); RED BLOOD COUNT 3.15 M/UL (4.70-6.10); RED CELL DISTRIBUTION WIDTH 14.1 % (11.6-14.8); WHITE BLOOD COUNT 3.9 K/UL (4.8-10.8)
[2017-05-30 15:56] LABS: TROPONIN I < 0.30 ng/mL (<=0.30)
[2017-05-30 16:02] LABS: ALBUMIN/GLOBULIN RATIO 1.3 (1.0-2.7); CALCIUM 8.4 mg/dL (8.6-10.2); CREATININE 3.9 mg/dL (0.7-1.2); GLOMERULAR FILTRATION RATE 19.5 mL/min (>60); TOTAL PROTEIN 6.8 g/dL (6.6-8.7)
[2017-05-30 16:20] LABS: CKMB 4.3 ng/mL (< 6.7)
[2017-05-30] MEDS ORDERED: Azithromycin 500 MG in NS 275 ML IV ONE (17:15)
[2017-05-30] MEDS ORDERED: cefTRIAXone 1 GM in NS 55 ML IV ONE (17:15)
[2017-05-30] MEDS ORDERED: Azithromycin 500mg Inj IV ONE (17:24)
[2017-05-30 18:05] VITALS: BP 131/79
[2017-05-30 20:52] VITALS: BP 146/75
[2017-05-30] MEDS ORDERED: DuoNeb 0.5-3(2.5)mg/3ml neb HHN PRN (23:00)
[2017-05-30 23:34] VITALS: BP 144/78
[2017-05-31 04:04] VITALS: BP 140/78
[2017-05-31 08:00] VITALS: BP 130/76
[2017-05-31] MEDS: cefTRIAXone 1 GM in D5W 55 ML IVPB SCH (09:40)
[2017-05-31] MEDS: HydrALAZINE 50mg tab ORAL SCH ×2 (09:41→19:01)
[2017-05-31] MEDS: Carvedilol 25mg Tab ORAL SCH ×2 (09:42→20:45)
[2017-05-31] MEDS: GlipiZIDE 5mg tab ORAL SCH ×2 (09:42→19:01)
[2017-05-31] MEDS: Allopurinol 100mg Tab ORAL SCH (10:31)
[2017-05-31] MEDS: Azithromycin 500 MG in D5W 275 ML IV SCH (10:32)
[2017-05-31 12:00] VITALS: BP 132/77
[2017-05-31 16:00] VITALS: BP 137/94
--- NOTE | 2017-05-31 18:19 | Cardiac Electrophysiology PN ---
Subjective Subjective [id number]. HTN, CHF 40% EF, LE edma, Renal failure, PNA Objective Last 24 Hour Vital Signs Date Time Temp Pulse Resp B/P (MAP) Pulse Ox O2 Delivery O2 Flow Rate FiO2 05/31/17 16:00 97.1 75 21 137/94 98 Nasal Cannula 2.0 05/31/17 12:00 97.2 79 21 132/77 95 Nasal Cannula 2.0 05/31/17 09:47 Nasal Cannula 2.0 05/31/17 09:46 84 16 Nasal Cannula 2.0 05/31/17 09:46 96 Nasal Cannula 2.0 05/31/17 09:42 80 130/76 05/31/17 09:41 130/76 05/31/17 09:41 80 130/76 05/31/17 08:00 97.5 80 21 130/76 Nasal Cannula 2.0 05/31/17 08:00 72 05/31/17 04:04 98.1 74 20 140/78 95 Room Air 05/31/17 03:45 80 05/31/17 00:38 85 05/30/17 23:34 97.5 81 20 144/78 Room Air 05/30/17 23:22 78 05/30/17 20:52 97.5 81 20 146/75 93 05/30/17 18:33 98.1 78 19 131/79 95 Room Air 2.0 LUDIVINA CHATMAN May 31, 2017 18:19
--- NOTE | 2017-05-31 19:58 | History and Physical ---
History of Present Illness General Reason for Hospitalization: Upper Respiratory Illness Present Illness HPI Mr Vargas is a 56yr old male, with a PMHx significant for HTN, HLD,DM, CKD, CHF, asthma and Down's syndrome presenting with cough and shortness of breath. X 3-4 days. states he has been using pump every 3 hours without relief. denies fever chills.+cough productive with yellow sputum, was recently hospitalized. Denies chest pain, no N/V, no abdominal pain. No PND. He uses two pillows. Allergies: Coded Allergies: No Known Allergies (Unverified , 03/13/17) Medication History Scheduled Allopurinol* (Allopurinol*), 100 MG ORAL DAILY, (Reported) Amlodipine Besylate* (Amlodipine Besylate*), 10 MG ORAL DAILY, (Reported) Atorvastatin Calcium* (Atorvastatin Calcium*), 20 MG ORAL BEDTIME, (Reported) Carvedilol* (Carvedilol*), 25 MG ORAL EVERY 12 HOURS, (Reported) Furosemide* (Lasix*), 20 MG ORAL DAILY, (Reported) Glipizide* (Glipizide*), 5 MG ORAL BIDAC, (Reported) Hydralazine Hcl* (Hydralazine Hcl*), 50 MG ORAL BID, (Reported) Insulin Glargine (Lantus), Unknown Dose SUBQ BEDTIME, (Reported) Isosorbide Dinitrate (Isosorbide Dinitrate*), 10 MG ORAL TID, (Reported) Tamsulosin Hcl (Tamsulosin Hcl*), 0.4 MG ORAL BEDTIME, (Reported) Patient History History Provided By: Patient Healthcare decision maker Resuscitation status Full Code Advanced Directive on File No Past Medical/Surgical History Past Medical/Surgical History: (1) Down syndrome (2) Asthma (3) CKD (chronic kidney disease) (4) Diabetes (5) HTN (hypertension) (6) Congestive heart failure (7) Upper respiratory infection (8) Pulmonary edema Social History Social History: (1) Non-smoker (2) No history of alcohol use (3) No illicit drug use Review of Systems All Other Systems: negative except mentioned in HPI Physical Exam General Appearance: no apparent distress, alert Lines, tubes and drains: peripheral HEENT: normocephalic, atraumatic Neck: normal alignment Respiratory/Chest: normal breath sounds, no respiratory distress Cardiovascular/Chest: normal rate, regular rhythm Abdomen: non tender, soft, no organomegaly Extremities: non-tender, normal inspection Neurologic: alert, responsive, normal mood/affect Last 24 Hour Vital Signs Date Time Temp Pulse Resp B/P (MAP) Pulse Ox O2 Delivery O2 Flow Rate FiO2 05/31/17 19:01 138/78 05/31/17 16:00 97.1 75 21 137/94 98 Nasal Cannula 2.0 05/31/17 12:00 97.2 79 21 132/77 95 Nasal Cannula 2.0 05/31/17 09:47 Nasal Cannula 2.0 05/31/17 09:46 84 16 Nasal Cannula 2.0 28 05/31/17 09:46 96 Nasal Cannula 2.0 05/31/17 09:42 80 130/76 05/31/17 09:41 130/76 05/31/17 09:41 80 130/76 05/31/17 08:00 97.5 80 21 130/76 Nasal Cannula 2.0 05/31/17 08:00 72 05/31/17 04:04 98.1 74 20 140/78 95 Room Air 05/31/17 03:45 80 05/31/17 00:38 85 05/30/17 23:34 97.5 81 20 144/78 Room Air 05/30/17 23:22 78 05/30/17 20:52 97.5 81 20 146/75 93 Intake and Output 05/31/17 06/01/17 19:00 07:00 Intake Total 560 ml Output Total 1300 ml Balance -740 ml Intake Oral 560 ml Output Urine Total 1300 ml # Voids 3 # Bowel Movements 1 Height (Feet): 5 Height (Inches): 6.00 Weight (Pounds): 257 Medications Current Medications Medications (Trade) Dose Ordered Sig/Emmy Route PRN Reason Start Time Stop Time Status Last Admin Dose Admin Albuterol/ Ipratropium (DuoNeb 0.5-3(2.5)mg/3ml) 3 ml Q4H PRN HHN Shortness of Breath 05/30/17 23:00 06/04/17 22:59 Allopurinol (Zyloprim) 100 mg DAILY ORAL 05/31/17 09:00 06/30/17 08:59 05/31/17 10:31 Atorvastatin Calcium (Lipitor) 20 mg BEDTIME ORAL 05/31/17 21:00 06/30/17 20:59 Azithromycin 500 mg/Dextrose 275 ml @ 275 mls/hr Q24HRS IV 05/31/17 10:00 06/06/17 10:59 05/31/17 10:32 Carvedilol (Coreg) 25 mg EVERY 12 HOURS ORAL 05/31/17 09:00 06/30/17 08:59 05/31/17 09:42 Ceftriaxone Sodium 1 gm/ Dextrose 55 ml @ 110 mls/hr Q24H IVPB 05/31/17 09:00 06/07/17 08:59 05/31/17 09:40 Furosemide (Lasix) 40 mg EVERY 12 HOURS IV 05/30/17 21:00 06/29/17 20:59 05/31/17 09:42 Glipizide (Glucotrol) 5 mg BID ORAL 05/31/17 09:00 06/30/17 08:59 05/31/17 19:01 Hydralazine HCl (Apresoline) 50 mg BID ORAL 05/31/17 09:00 06/30/17 08:59 05/31/17 19:01 Isosorbide Dinitrate (Isordil) 20 mg Q12HR ORAL 06/01/17 09:00 07/01/17 08:59 Tamsulosin HCl (Flomax) 0.4 mg BEDTIME ORAL 05/31/17 21:00 06/30/17 20:59 Assessment/Plan Problem List: (1) Upper respiratory infection ICD Codes: J06.9 - Acute upper respiratory infection, unspecified SNOMED: 93829242 (2) Congestive heart failure ICD Codes: I50.9 - Heart failure, unspecified SNOMED: 97956368 (3) Down syndrome ICD Codes: Q90.9 - Down syndrome, unspecified SNOMED: 68857735 (4) Asthma ICD Codes: J45.909 - Unspecified asthma, uncomplicated SNOMED: 682173678 (5) HTN (hypertension) ICD Codes: I10 - Essential (primary) hypertension SNOMED: 82405357 (6) CKD (chronic kidney disease) ICD Codes: N18.9 - Chronic kidney disease, unspecified SNOMED: 448038274 Assessment/Plan Admit to telemetry Cardio consult Continue home meds Continue current abx Neb treatment Renal ultrasound Renally dose meds Avoid nephrotoxins Monitor intake and output DVT prophylaxis PPI AM labs MARIELA SOTO May 31, 2017 19:58
[2017-05-31 20:00] VITALS: BP 120/45
--- NOTE | 2017-05-31 20:06 | Infectious Diseases Prog Note ---
Assessment/Plan Problems: (1) CAP (community acquired pneumonia) Assessment & Plan: continue current antibiotics regimen with ceftriaxon and zithromax, monitor CXR (2) Asthma Assessment & Plan: with acute exacerbation, continue antibiotics, and inhalers , and O2 (3) CKD (chronic kidney disease) Assessment & Plan: monitor renal function, and urine output, avoid nephrotoxic meds (4) Diabetes Assessment & Plan: recommend tight glycemic control to keep blood glucose between 80-120 (5) Congestive heart failure Assessment & Plan: monitor daily weight and urine out put, needs diuresis , cardiology is following Subjective Allergies: Coded Allergies: No Known Allergies (Unverified , 03/13/17) Objective Vital Signs Last 24 Hour Vital Signs Date Time Temp Pulse Resp B/P (MAP) Pulse Ox O2 Delivery O2 Flow Rate FiO2 05/31/17 19:01 138/78 05/31/17 16:00 97.1 75 21 137/94 98 Nasal Cannula 2.0 05/31/17 12:00 97.2 79 21 132/77 95 Nasal Cannula 2.0 05/31/17 09:47 Nasal Cannula 2.0 05/31/17 09:46 84 16 Nasal Cannula 2.0 28 05/31/17 09:46 96 Nasal Cannula 2.0 05/31/17 09:42 80 130/76 05/31/17 09:41 130/76 05/31/17 09:41 80 130/76 05/31/17 08:00 97.5 80 21 130/76 Nasal Cannula 2.0 05/31/17 08:00 72 05/31/17 04:04 98.1 74 20 140/78 95 Room Air 05/31/17 03:45 80 05/31/17 00:38 85 05/30/17 23:34 97.5 81 20 144/78 Room Air 05/30/17 23:22 78 05/30/17 20:52 97.5 81 20 146/75 93 Height (Feet): 5 Height (Inches): 6.00 Weight (Pounds): 257 Current Medications Medications (Trade) Dose Ordered Sig/Emmy Route PRN Reason Start Time Stop Time Status Last Admin Dose Admin Albuterol/ Ipratropium (DuoNeb 0.5-3(2.5)mg/3ml) 3 ml Q4H PRN HHN Shortness of Breath 05/30/17 23:00 06/04/17 22:59 Allopurinol (Zyloprim) 100 mg DAILY ORAL 05/31/17 09:00 06/30/17 08:59 05/31/17 10:31 Atorvastatin Calcium (Lipitor) 20 mg BEDTIME ORAL 05/31/17 21:00 06/30/17 20:59 Azithromycin 500 mg/Dextrose 275 ml @ 275 mls/hr Q24HRS IV 05/31/17 10:00 06/06/17 10:59 05/31/17 10:32 Carvedilol (Coreg) 25 mg EVERY 12 HOURS ORAL 05/31/17 09:00 06/30/17 08:59 05/31/17 09:42 Ceftriaxone Sodium 1 gm/ Dextrose 55 ml @ 110 mls/hr Q24H IVPB 05/31/17 09:00 06/07/17 08:59 05/31/17 09:40 Furosemide (Lasix) 40 mg EVERY 12 HOURS IV 05/30/17 21:00 06/29/17 20:59 05/31/17 09:42 Glipizide (Glucotrol) 5 mg BID ORAL 05/31/17 09:00 06/30/17 08:59 05/31/17 19:01 Hydralazine HCl (Apresoline) 50 mg BID ORAL 05/31/17 09:00 06/30/17 08:59 05/31/17 19:01 Isosorbide Dinitrate (Isordil) 20 mg Q12HR ORAL 06/01/17 09:00 07/01/17 08:59 Tamsulosin HCl (Flomax) 0.4 mg BEDTIME ORAL 05/31/17 21:00 06/30/17 20:59 Audelia Lind M.D. May 31, 2017 20:06
[2017-05-31] MEDS: Tamsulosin 0.4mg cap ORAL SCH (20:45)
[2017-06-01] VITALS: BP 125/50
[2017-06-01 04:00] VITALS: BP 132/83
--- NOTE | 2017-06-01 04:45 | Consultation ---
DATE OF CONSULTATION: 05/31/2017 CARDIOLOGY CONSULTATION REASON FOR CONSULTATION: Hypertension and severe bilateral lower extremity edema. HISTORY OF PRESENT ILLNESS: The patient is a 56-year-old gentleman that I am familiar with from his previous admission at [facility] [place]. The patient has a history of hypertension, diabetes, and hyperlipidemia, who was admitted to the hospital with increasing bilateral lower extremity edema. He also has history of congestive heart failure with ejection fraction of 40% to 45% in March. The patient also has a history of obesity. The patient was admitted yesterday for evaluation of edema as well as cough and shortness of breath. PAST MEDICAL HISTORY: 1. Hypertension. 2. Diabetes. 3. Hyperlipidemia. 4. History of congestive heart failure with ejection fraction of 40%. SOCIAL HISTORY: He does not smoke or drink alcohol. FAMILY HISTORY: Noncontributory. REVIEW OF SYSTEMS: His review of systems was performed and was negative other than what was mentioned in the history of present illness. PHYSICAL EXAMINATION: VITAL SIGNS: Blood pressure is 137/94, pulse 75, respirations 18, and he is afebrile. HEAD AND NECK: Shows positive JVD. LUNGS: Coarse rhonchi bilaterally. CARDIOVASCULAR: Shows irregular S1 and S2 with no gallop or murmur. ABDOMEN: Obese. EXTREMITIES: There is 2+ pitting edema. LABORATORY AND DIAGNOSTIC DATA: His EKG showed sinus rhythm with nonspecific ST-T wave abnormalities and frequent PVCs. His labs showed white count of 3.9, hemoglobin 9, hematocrit 28.6, and platelet count of 140,000. Sodium 141, potassium 4.0, BUN of 49, creatinine of 3.9, and glucose of 82. BNP is 4656. His urine toxicology is negative. INR is 1. His echocardiogram on 03/13/2017 showed ejection fraction of 40% to 45%. ASSESSMENT AND PLAN: 1. Congestive heart failure with ejection fraction of 40% in the patient who also has renal failure. The patient is already on Coreg 25 mg b.i.d. as well as hydralazine 50 mg b.i.d. We will add Isordil 10 mg t.i.d. to his medical regimen. The patient is also on Lasix 40 mg IV b.i.d. and that will be continued. Avoid Aldactone in view of risk of hyperkalemia and in view of his creatinine of around 3. 2. Hypertension. Continue current heart failure medications as mentioned above. I will discontinue Norvasc to maximize his heart failure therapy. 3. Chronic kidney disease with creatinine of around 3 as mentioned above. 4. Chronic obstructive pulmonary disease and pneumonia, on ceftriaxone and Zithromax. Thank you very much, Dr. Lane, for allowing me to participate in the care of this patient. Please do not hesitate to contact for any questions regarding my evaluation. Joby Wiggins M.D. DR: ANGELA JOB#: [id number] CC:
--- NOTE | 2017-06-01 06:30 | Consultation ---
DATE OF CONSULTATION: 05/31/2017 PULMONARY CONSULTATION HISTORY OF PRESENT ILLNESS: This is a 56-year-old male with a history of Down syndrome, who came to the hospital with shortness of breath. The patient has been using inhalers without relief. He has a history of hypertension, renal failure, and asthma. MEDICATIONS: His present medications include Lipitor, Flomax, azithromycin, ceftriaxone, allopurinol, Norvasc, Coreg, Glucotrol, hydralazine, Lasix, and DuoNebs. ALLERGIES: None reported. PHYSICAL EXAMINATION: GENERAL: Reveals a 56-year-old male. VITAL SIGNS: O2 sat 95% on two liters of oxygen, blood pressure 130/70, heart rate 74, and respiratory rate 18. She is afebrile. HEENT: Unremarkable. LUNGS: Clear breath sounds bilaterally. ABDOMEN: Soft. EXTREMITIES: There is no edema. NEUROLOGIC: Nonfocal. LABORATORY DATA: Lab testing shows white count of 3.7 and hemoglobin 9.0. Chemistry is unremarkable. Creatinine 3.9. ProBNP 4656. Imaging studies obtained overnight have shown mild CHF. IMPRESSION: 1. Pulmonary edema, doubt pneumonia. 2. End-stage renal disease, on dialysis. DISCUSSION: 1. Agree with present medication and care. 2. Empiric antibiotics. 3. Continue his dialysis and oxygen. 4. We will follow. Charles Erickson M.D. DR: TK JOB#: [id number] CC:
--- NOTE | 2017-06-01 07:00 | Consultation ---
DATE OF CONSULTATION: 05/31/2017 INFECTIOUS DISEASE CONSULTATION REQUESTING PHYSICIAN: Henrique Lane M.D. REASON FOR CONSULTATION: Community-acquired pneumonia. Recommendation for antibiotics treatment and management. HISTORY OF PRESENT ILLNESS: This is a 56-year-old male with a history of Down syndrome, asthma, diabetes, and chronic renal failure, presented to the hospital with cough productive and shortness breath for 4 days. This patient has been using inhaler without significant relief, so he was brought into the hospital for evaluation and management. Chest x-ray in the emergency room showed bilateral infiltrates suspicious for pneumonia, so he was started on IV antibiotics and I was consulted by the primary provider for antibiotics treatment and further management. As of note, the patient is a poor historian, could not provide good history. History was mainly obtained from the medical record and nursing staff. PAST MEDICAL HISTORY: Significant for hypertension, asthma, diabetes, CVA, Down syndrome, and chronic renal failure. PAST SURGICAL HISTORY: Negative. ALLERGIES: No known drug allergy. MEDICATIONS: He is on ceftriaxone and Zithromax. FAMILY HISTORY: Unable to obtain. SOCIAL HISTORY: The patient denied any recent drugs, tobacco, or alcohol. REVIEW OF SYSTEMS: Unable to obtain at this point. The patient is a poor historian. PHYSICAL EXAMINATION: VITAL SIGNS: Temperature 97.2 degrees, pulse 79, respirations 21, blood pressure 132/77, and saturation 95% on two liters nasal cannula. GENERAL: A middle-aged male with Down syndrome, up in bed, awake, alert, not in distress. Coughing. HEENT: Normocephalic and atraumatic. Pupils are reactive to light. Moist oral mucosa. No exudate or thrush. NECK: Supple. No lymphadenopathy. CARDIOVASCULAR: Regular rate and rhythm. No murmur or gallop. LUNGS: He had crackles and diminished breathing sound on both lung gonzalez. Normal respiratory effort. ABDOMEN: Soft, nontender, and nondistended. Positive bowel sounds. No hepatosplenomegaly or ascites. EXTREMITIES: No edema. No cyanosis. No clubbing. SKIN: No rash. No hives. LABORATORY DATA: Showed white count of 8.9, hemoglobin of 9, platelet count of 140,000. BUN of 49, creatinine of 3.9. Total CK of 467. IMAGING STUDIES: Chest x-ray showed interstitial infiltration, edema versus pneumonia. ASSESSMENT AND RECOMMENDATION: 1. Community-acquired pneumonia. Continue current antibiotics regimen of ceftriaxone and Zithromax. Monitor chest x-ray. 2. Asthma with acute exacerbation due to the above. Continue antibiotics, inhalers, and oxygen therapy. Titrate as needed. 3. Chronic kidney disease. Monitor renal function test and urine output. Avoid nephrotoxic medicines. 4. Diabetes. Recommend tight glycemic control to keep blood glucose between 80 to 120. 5. Congestive heart failure. Monitor daily weights and urine output. May need diuresis. Cardiology is following. Thank you for the consult. Infectious Disease will continue to follow. Audelia Lind M.D. DR: KATIE JOB#: [id number] CC:
[2017-06-01 07:36] LABS: BASOPHILS % (AUTO) 0.3 % (0.0-2.0); EOSINOPHILS % (AUTO) 0.7 % (0.0-3.0); LYMPHOCYTES % (AUTO) 34.6 % (20.0-45.0); MEAN CORPUSCULAR HEMOGLOBIN 29.4 PG (27.0-31.0); MEAN CORPUSCULAR VOLUME 92 FL (80-99); MEAN PLATELET VOLUME 6.9 FL (6.5-10.1); MONOCYTES % (AUTO) 10.7 % (1.0-10.0); NEUTROPHILS % (AUTO) 53.7 % (45.0-75.0); PLATELET COUNT 174 K/UL (150-450); RED BLOOD COUNT 3.24 M/UL (4.70-6.10); WHITE BLOOD COUNT 5.7 K/UL (4.8-10.8)
[2017-06-01 07:46] LABS: CREATININE 4.2 mg/dL (0.7-1.2); GLOMERULAR FILTRATION RATE 17.9 mL/min (>60); POTASSIUM 3.9 mEQ/L (3.4-4.9)
--- NOTE | 2017-06-01 07:46 | Pulmonology Progress Note ---
Assessment/Plan Assessment/Plan IMPRESSION: 1. Pulmonary edema, doubt pneumonia. 2. End-stage renal disease, on dialysis. DISCUSSION: 1. Agree with present medication and care. 2. Empiric antibiotics. 3. Continue dialysis and oxygen. 4. I will follow. Subjective Interval Events: States he is still SOB; no better than yesterday Constitutional: Reports: no symptoms HEENT: Repors: no symptoms Respiratory: Reports: shortness of breath Cardiovascular: Reports: no symptoms Gastrointestinal/Abdominal: Reports: no symptoms Allergies: Coded Allergies: No Known Allergies (Unverified , 03/13/17) Objective Last 24 Hour Vital Signs Date Time Temp Pulse Resp B/P (MAP) Pulse Ox O2 Delivery O2 Flow Rate FiO2 06/01/17 04:00 97.3 70 20 132/83 98 Nasal Cannula 2.0 06/01/17 04:00 70 06/01/17 00:00 98.0 80 20 125/50 98 Nasal Cannula 2.0 06/01/17 00:00 64 05/31/17 21:29 72 16 Nasal Cannula 2.0 28 05/31/17 21:29 98 Nasal Cannula 2.0 28 05/31/17 21:29 Nasal Cannula 2.0 28 05/31/17 20:45 78 125/60 05/31/17 20:00 77 05/31/17 20:00 97.0 78 20 120/45 98 Nasal Cannula 2.0 05/31/17 19:01 138/78 05/31/17 16:00 97.1 75 21 137/94 98 Nasal Cannula 2.0 05/31/17 16:00 72 05/31/17 12:00 97.2 79 21 132/77 95 Nasal Cannula 2.0 05/31/17 12:00 72 05/31/17 09:47 Nasal Cannula 2.0 05/31/17 09:46 84 16 Nasal Cannula 2.0 28 05/31/17 09:46 96 Nasal Cannula 2.0 05/31/17 09:42 80 130/76 05/31/17 09:41 130/76 05/31/17 09:41 80 130/76 05/31/17 08:00 97.5 80 21 130/76 Nasal Cannula 2.0 05/31/17 08:00 72 General Appearance: no acute distress HEENT: normocephalic Respiratory/Chest: chest wall non-tender, decreased breath sounds Cardiovascular: normal peripheral pulses Laboratory Tests 06/01/17 05:20: White Blood Count 5.7, Red Blood Count 3.24L, Hemoglobin 9.5L, Hematocrit 29.8L , Mean Corpuscular Volume 92, Mean Corpuscular Hemoglobin 29.4, Mean Corpuscular Hemoglobin Concent 32.0, Red Cell Distribution Width 14.0, Platelet Count 174, Mean Platelet Volume 6.9, Neutrophils (%) (Auto) 53.7, Lymphocytes (% ) (Auto) 34.6, Monocytes (%) (Auto) 10.7H, Eosinophils (%) (Auto) 0.7, Basophils (%) (Auto) 0.3, Sodium Level [Pending], Potassium Level [Pending], Chloride Level [Pending], Carbon Dioxide Level [Pending], Blood Urea Nitrogen [ Pending], Creatinine [Pending], Estimat Glomerular Filtration Rate [Pending], Glucose Level [Pending], Calcium Level [Pending], Pro-B-Type Natriuretic Peptide [Pending] Current Medications Medications (Trade) Dose Ordered Sig/Emmy Route PRN Reason Start Time Stop Time Status Last Admin Dose Admin Albuterol/ Ipratropium (DuoNeb 0.5-3(2.5)mg/3ml) 3 ml Q4H PRN HHN Shortness of Breath 05/30/17 23:00 06/04/17 22:59 Allopurinol (Zyloprim) 100 mg DAILY ORAL 05/31/17 09:00 06/30/17 08:59 05/31/17 10:31 Atorvastatin Calcium (Lipitor) 20 mg BEDTIME ORAL 05/31/17 21:00 06/30/17 20:59 05/31/17 20:45 Azithromycin 500 mg/Dextrose 275 ml @ 275 mls/hr Q24HRS IV 05/31/17 10:00 06/06/17 10:59 05/31/17 10:32 Carvedilol (Coreg) 25 mg EVERY 12 HOURS ORAL 05/31/17 09:00 06/30/17 08:59 05/31/17 20:45 Ceftriaxone Sodium 1 gm/ Dextrose 55 ml @ 110 mls/hr Q24H IVPB 05/31/17 09:00 06/07/17 08:59 05/31/17 09:40 Furosemide (Lasix) 40 mg EVERY 12 HOURS IV 05/30/17 21:00 06/29/17 20:59 05/31/17 20:44 Glipizide (Glucotrol) 5 mg BID ORAL 05/31/17 09:00 06/30/17 08:59 05/31/17 19:01 Hydralazine HCl (Apresoline) 50 mg BID ORAL 05/31/17 09:00 06/30/17 08:59 05/31/17 19:01 Isosorbide Dinitrate (Isordil) 20 mg Q12HR ORAL 06/01/17 09:00 07/01/17 08:59 Tamsulosin HCl (Flomax) 0.4 mg BEDTIME ORAL 05/31/17 21:00 06/30/17 20:59 05/31/17 20:45 Charles Erickson MD Jun 01, 2017 07:46
[2017-06-01 08:00] VITALS: BP 132/82
[2017-06-01] MEDS: Allopurinol 100mg Tab ORAL SCH (08:39)
[2017-06-01] MEDS: Carvedilol 25mg Tab ORAL SCH ×2 (08:39→20:11)
[2017-06-01] MEDS: GlipiZIDE 5mg tab ORAL SCH ×2 (08:39→18:03)
[2017-06-01] MEDS: cefTRIAXone 1 GM in D5W 55 ML IVPB SCH (08:40)
[2017-06-01] MEDS: HydrALAZINE 50mg tab ORAL SCH ×2 (08:42→18:03)
[2017-06-01] MEDS: Azithromycin 500 MG in D5W 275 ML IV SCH (10:30)
[2017-06-01 12:00] VITALS: BP 122/64
--- NOTE | 2017-06-01 15:07 | Infectious Diseases Prog Note ---
Assessment/Plan Problems: (1) CAP (community acquired pneumonia) Assessment & Plan: improving on the current antibiotics regimen with ceftriaxon and zithromax, monitor CXR (2) Asthma Assessment & Plan: with acute exacerbation, due to the above , continue antibiotics, inhalers, and O2 (3) CKD (chronic kidney disease) Assessment & Plan: monitor renal function, and urine output, avoid nephrotoxic meds (4) Diabetes Assessment & Plan: recommend tight glycemic control to keep blood glucose between 80-120 (5) Congestive heart failure Assessment & Plan: monitor daily weight and urine out put, needs diuresis , cardiology is following Subjective Constitutional: Reports: no symptoms HEENT: Reports: no symptoms Respiratory: Reports: dry cough, other - wheezing Breasts: Reports: no symptoms Cardiovascular: Reports: no symptoms Gastrointestinal/Abdominal: Reports: no symptoms Genitourinary: Reports: no symptoms Neurologic: Reports: no symptoms Psychiatric: Reports: no symptoms Skin: Reports: no symptoms Endocrine: Reports: no symptoms Allergies: Coded Allergies: No Known Allergies (Unverified , 03/13/17) Objective Vital Signs Last 24 Hour Vital Signs Date Time Temp Pulse Resp B/P (MAP) Pulse Ox O2 Delivery O2 Flow Rate FiO2 06/01/17 12:00 97.5 64 20 122/64 100 Nasal Cannula 2.0 06/01/17 12:00 78 06/01/17 08:42 132/82 06/01/17 08:41 132/82 06/01/17 08:39 72 132/82 06/01/17 08:00 75 06/01/17 08:00 72 21 132/82 97 Nasal Cannula 2.0 06/01/17 04:00 97.3 70 20 132/83 98 Nasal Cannula 2.0 06/01/17 04:00 70 06/01/17 00:00 98.0 80 20 125/50 98 Nasal Cannula 2.0 06/01/17 00:00 64 05/31/17 21:29 72 16 Nasal Cannula 2.0 05/31/17 21:29 98 Nasal Cannula 2.0 28 05/31/17 21:29 Nasal Cannula 2.0 28 05/31/17 20:45 78 125/60 05/31/17 20:00 77 05/31/17 20:00 97.0 78 20 120/45 98 Nasal Cannula 2.0 05/31/17 19:01 138/78 05/31/17 16:00 97.1 75 21 137/94 98 Nasal Cannula 2.0 05/31/17 16:00 72 Height (Feet): 5 Height (Inches): 6.00 Weight (Pounds): 262 General Appearance: WD/WN, no acute distress HEENT: normocephalic, atraumatic, anicteric, mucous membranes moist, EOMI, pharynx normal, supple, no JVD Respiratory/Chest: no respiratory distress, no accessory muscle use, decreased breath sounds, expiratory wheezing, inspiratory wheezing Cardiovascular: normal peripheral pulses, normal rate, regular rhythm, no gallop/murmur, no JVD Abdomen: normal bowel sounds, soft, non tender, no organomegaly, non distended , no mass Extremities: no cyanosis, no clubbing Skin: no rash, no lesions, no ulcers Neurologic/Psychiatric: alert, oriented x 3, responsive Laboratory Tests Test 06/01/17 05:20 White Blood Count 5.7 K/UL (4.8-10.8) Red Blood Count 3.24 M/UL (4.70-6.10) L Hemoglobin 9.5 G/DL (14.2-18.0) L Hematocrit 29.8 % (42.0-52.0) L Mean Corpuscular Volume 92 FL (80-99) Mean Corpuscular Hemoglobin 29.4 PG (27.0-31.0) Mean Corpuscular Hemoglobin Concent 32.0 G/DL (32.0-36.0) Red Cell Distribution Width 14.0 % (11.6-14.8) Platelet Count 174 K/UL (150-450) Mean Platelet Volume 6.9 FL (6.5-10.1) Neutrophils (%) (Auto) 53.7 % (45.0-75.0) Lymphocytes (%) (Auto) 34.6 % (20.0-45.0) Monocytes (%) (Auto) 10.7 % (1.0-10.0) H Eosinophils (%) (Auto) 0.7 % (0.0-3.0) Basophils (%) (Auto) 0.3 % (0.0-2.0) Sodium Level 144 mEQ/L (135-145) Potassium Level 3.9 mEQ/L (3.4-4.9) Chloride Level 108 mEQ/L (98-107) H Carbon Dioxide Level 21 mEQ/L (20-30) Anion Gap 15 (5-15) Blood Urea Nitrogen 73 mg/dL (7-23) H Creatinine 4.2 mg/dL (0.7-1.2) H Estimat Glomerular Filtration Rate 17.9 mL/min (>60) Glucose Level 68 mg/dL (74-106) L Calcium Level 8.0 mg/dL (8.6-10.2) L Pro-B-Type Natriuretic Peptide 3301 pg/mL (0-125) H Current Medications Medications (Trade) Dose Ordered Sig/Emmy Route PRN Reason Start Time Stop Time Status Last Admin Dose Admin Albuterol/ Ipratropium (DuoNeb 0.5-3(2.5)mg/3ml) 3 ml Q4H PRN HHN Shortness of Breath 05/30/17 23:00 06/04/17 22:59 Allopurinol (Zyloprim) 100 mg DAILY ORAL 05/31/17 09:00 06/30/17 08:59 06/01/17 08:39 Atorvastatin Calcium (Lipitor) 20 mg BEDTIME ORAL 05/31/17 21:00 06/30/17 20:59 05/31/17 20:45 Azithromycin 500 mg/Dextrose 275 ml @ 275 mls/hr Q24HRS IV 05/31/17 10:00 06/06/17 10:59 06/01/17 10:30 Carvedilol (Coreg) 25 mg EVERY 12 HOURS ORAL 05/31/17 09:00 06/30/17 08:59 06/01/17 08:39 Ceftriaxone Sodium 1 gm/ Dextrose 55 ml @ 110 mls/hr Q24H IVPB 05/31/17 09:00 06/07/17 08:59 06/01/17 08:40 Furosemide (Lasix) 40 mg EVERY 12 HOURS IV 05/30/17 21:00 06/29/17 20:59 06/01/17 08:39 Glipizide (Glucotrol) 5 mg BID ORAL 05/31/17 09:00 06/30/17 08:59 06/01/17 08:39 Hydralazine HCl (Apresoline) 50 mg BID ORAL 05/31/17 09:00 06/30/17 08:59 06/01/17 08:42 Isosorbide Dinitrate (Isordil) 20 mg Q12HR ORAL 06/01/17 09:00 07/01/17 08:59 06/01/17 08:41 Tamsulosin HCl (Flomax) 0.4 mg BEDTIME ORAL 05/31/17 21:00 06/30/17 20:59 05/31/17 20:45 Audelia Lind M.D. Jun 01, 2017 15:07
--- NOTE | 2017-06-01 15:08 | Cardiac Electrophysiology PN ---
Assessment/Plan Assessment/Plan 1. Congestive heart failure with ejection fraction of 40%. On Coreg 25 mg b.i.d. , hydralazine 50 mg b.i.d., Isordil 20 mg b.i.d.and Lasix 40 mg IV b.i.d.. Avoid Aldactone in view of risk of hyperkalemia and in view of his creatinine of around 3. 2. Hypertension. Continue current heart failure medications. 3. Chronic kidney disease with creatinine of around 3. 4. Chronic obstructive pulmonary disease and pneumonia, on ceftriaxone and Zithromax. DW RN and family Subjective Subjective Feeling better. Less cough. Objective Last 24 Hour Vital Signs Date Time Temp Pulse Resp B/P (MAP) Pulse Ox O2 Delivery O2 Flow Rate FiO2 06/01/17 12:00 97.5 64 20 122/64 100 Nasal Cannula 2.0 06/01/17 12:00 78 06/01/17 08:42 132/82 06/01/17 08:41 132/82 06/01/17 08:39 72 132/82 06/01/17 08:00 75 06/01/17 08:00 72 21 132/82 97 Nasal Cannula 2.0 06/01/17 04:00 97.3 70 20 132/83 98 Nasal Cannula 2.0 06/01/17 04:00 70 06/01/17 00:00 98.0 80 20 125/50 98 Nasal Cannula 2.0 06/01/17 00:00 64 05/31/17 21:29 72 16 Nasal Cannula 2.0 28 05/31/17 21:29 98 Nasal Cannula 2.0 28 05/31/17 21:29 Nasal Cannula 2.0 28 05/31/17 20:45 78 125/60 05/31/17 20:00 77 05/31/17 20:00 97.0 78 20 120/45 98 Nasal Cannula 2.0 05/31/17 19:01 138/78 05/31/17 16:00 97.1 75 21 137/94 98 Nasal Cannula 2.0 05/31/17 16:00 72 Laboratory Tests Test 06/01/17 05:20 White Blood Count 5.7 K/UL (4.8-10.8) Red Blood Count 3.24 M/UL (4.70-6.10) L Hemoglobin 9.5 G/DL (14.2-18.0) L Hematocrit 29.8 % (42.0-52.0) L Mean Corpuscular Volume 92 FL (80-99) Mean Corpuscular Hemoglobin 29.4 PG (27.0-31.0) Mean Corpuscular Hemoglobin Concent 32.0 G/DL (32.0-36.0) Red Cell Distribution Width 14.0 % (11.6-14.8) Platelet Count 174 K/UL (150-450) Mean Platelet Volume 6.9 FL (6.5-10.1) Neutrophils (%) (Auto) 53.7 % (45.0-75.0) Lymphocytes (%) (Auto) 34.6 % (20.0-45.0) Monocytes (%) (Auto) 10.7 % (1.0-10.0) H Eosinophils (%) (Auto) 0.7 % (0.0-3.0) Basophils (%) (Auto) 0.3 % (0.0-2.0) Sodium Level 144 mEQ/L (135-145) Potassium Level 3.9 mEQ/L (3.4-4.9) Chloride Level 108 mEQ/L (98-107) H Carbon Dioxide Level 21 mEQ/L (20-30) Anion Gap 15 (5-15) Blood Urea Nitrogen 73 mg/dL (7-23) H Creatinine 4.2 mg/dL (0.7-1.2) H Estimat Glomerular Filtration Rate 17.9 mL/min (>60) Glucose Level 68 mg/dL (74-106) L Calcium Level 8.0 mg/dL (8.6-10.2) L Pro-B-Type Natriuretic Peptide 3301 pg/mL (0-125) H Objective HEAD AND NECK: Shows positive JVD. LUNGS: Coarse rhonchi bilaterally. CARDIOVASCULAR: Shows irregular S1 and S2 with no gallop or murmur. ABDOMEN: Obese. EXTREMITIES: 2+ pitting edema. LUDIVINA CHATMAN Jun 01, 2017 15:08
[2017-06-01 16:00] VITALS: BP 142/84
--- NOTE | 2017-06-01 19:34 | Nephrology Progress Note ---
Assessment/Plan Problem List: (1) Upper respiratory infection (2) Congestive heart failure (3) Down syndrome (4) Asthma (5) HTN (hypertension) (6) CKD (chronic kidney disease) (7) Pneumonia Plan Start IVF 0.45%nacl @100cc/hr Cardio following Pulmo following ID following Continue current abx Continue Neb treatment Renal ultrasound result pending Renally dose meds Avoid nephrotoxins Monitor intake and output DVT prophylaxis AM labs Subjective Constitutional: Denies: no symptoms, chills, diaphoresis, fever, malaise, weakness, other HEENT: Denies: no symptoms, eye pain, blurred vision, tearing, double vision, ear pain, ear discharge, nose pain, nose congestion, throat pain, throat swelling, mouth pain, mouth swelling, other Genitourinary: Denies: no symptoms, burning, discharge, frequency, flank pain, hematuria, incontinence, pain, urgency, other Neurologic/Psychiatric: Denies: no symptoms, anxiety, depressed, emotional problems, headache, numbness, paresthesia, pre-existing deficit, seizure, tingling, tremors, weakness, other Objective Objective Last 24 Hour Vital Signs Date Time Temp Pulse Resp B/P (MAP) Pulse Ox O2 Delivery O2 Flow Rate FiO2 06/01/17 18:03 142/84 06/01/17 16:00 97.4 64 21 142/84 96 Room Air 06/01/17 16:00 79 06/01/17 12:00 97.5 64 20 122/64 100 Nasal Cannula 2.0 06/01/17 12:00 78 06/01/17 08:42 132/82 06/01/17 08:41 132/82 06/01/17 08:39 72 132/82 06/01/17 08:00 75 06/01/17 08:00 72 21 132/82 97 Nasal Cannula 2.0 06/01/17 07:30 71 20 Nasal Cannula 2.0 28 06/01/17 07:30 97 Nasal Cannula 2.0 28 06/01/17 07:30 Nasal Cannula 2.0 28 06/01/17 04:00 97.3 70 20 132/83 98 Nasal Cannula 2.0 06/01/17 04:00 70 06/01/17 00:00 98.0 80 20 125/50 98 Nasal Cannula 2.0 06/01/17 00:00 64 05/31/17 21:29 72 16 Nasal Cannula 2.0 28 05/31/17 21:29 98 Nasal Cannula 2.0 28 05/31/17 21:29 Nasal Cannula 2.0 28 05/31/17 20:45 78 125/60 05/31/17 20:00 77 05/31/17 20:00 97.0 78 20 120/45 98 Nasal Cannula 2.0 Intake and Output 06/01/17 06/02/17 19:00 07:00 Intake Total 930 ml Output Total 800 ml Balance 130 ml Intake Oral 600 ml IV Total 330 ml Output Urine Total 800 ml Laboratory Tests 06/01/17 05:20: White Blood Count 5.7, Red Blood Count 3.24L, Hemoglobin 9.5L, Hematocrit 29.8L , Mean Corpuscular Volume 92, Mean Corpuscular Hemoglobin 29.4, Mean Corpuscular Hemoglobin Concent 32.0, Red Cell Distribution Width 14.0, Platelet Count 174, Mean Platelet Volume 6.9, Neutrophils (%) (Auto) 53.7, Lymphocytes (% ) (Auto) 34.6, Monocytes (%) (Auto) 10.7H, Eosinophils (%) (Auto) 0.7, Basophils (%) (Auto) 0.3, Sodium Level 144, Potassium Level 3.9, Chloride Level 108H, Carbon Dioxide Level 21, Anion Gap 15, Blood Urea Nitrogen 73H, Creatinine 4.2H, Estimat Glomerular Filtration Rate 17.9, Glucose Level 68L, Calcium Level 8.0L, Pro-B-Type Natriuretic Peptide 3301H Height (Feet): 5 Height (Inches): 6.00 Weight (Pounds): 262 General Appearance: no apparent distress EENT: normal ENT inspection Neck: normal alignment Cardiovascular: regular rhythm, regularly irregular Respiratory/Chest: no respiratory distress, decreased breath sounds Abdomen: non tender, soft Extremities: normal range of motion Neurologic: responsive, normal mood/affect MARIELA SOTO Jun 01, 2017 19:34
[2017-06-01 20:04] LABS: CREATININE 4.1 mg/dL (0.7-1.2); GLOMERULAR FILTRATION RATE 18.4 mL/min (>60)
[2017-06-01] MEDS: Tamsulosin 0.4mg cap ORAL SCH (20:10)
[2017-06-01 20:31] VITALS: BP 130/58
[2017-06-02 00:10] VITALS: BP 132/77
[2017-06-02 03:54] VITALS: BP 116/58
[2017-06-02 07:58] VITALS: BP 143/76
--- NOTE | 2017-06-02 09:22 | Pulmonology Progress Note ---
Assessment/Plan Assessment/Plan IMPRESSION: 1. Pulmonary edema, doubt pneumonia. 2. End-stage renal disease, on dialysis. 3. CHF DISCUSSION: 1. Agree with present medication and care. 2. Empiric antibiotics. 3. Continue dialysis and oxygen. 4. I will follow. Subjective Interval Events: No signifivcant change Constitutional: Reports: no symptoms HEENT: Repors: no symptoms Respiratory: Reports: shortness of breath Cardiovascular: Reports: no symptoms Gastrointestinal/Abdominal: Reports: no symptoms Genitourinary: Reports: no symptoms Allergies: Coded Allergies: No Known Allergies (Unverified , 03/13/17) Objective Last 24 Hour Vital Signs Date Time Temp Pulse Resp B/P (MAP) Pulse Ox O2 Delivery O2 Flow Rate FiO2 06/02/17 07:58 97.4 72 18 143/76 98 Room Air 06/02/17 06:48 65 06/02/17 03:54 97.6 75 18 116/58 97 Nasal Cannula 06/02/17 00:10 97.6 72 20 132/77 97 Nasal Cannula 06/01/17 20:31 97.2 73 20 130/58 Nasal Cannula 06/01/17 20:11 77 142/84 06/01/17 20:10 142/84 06/01/17 19:50 93 Nasal Cannula 2.0 06/01/17 19:50 Nasal Cannula 2.0 28 06/01/17 19:49 77 18 Nasal Cannula 2.0 06/01/17 18:03 142/84 06/01/17 16:00 97.4 64 21 142/84 96 Room Air 06/01/17 16:00 79 06/01/17 12:00 97.5 64 20 122/64 100 Nasal Cannula 2.0 06/01/17 12:00 78 Intake and Output 06/02/17 06/03/17 19:00 07:00 Intake Total 120 ml Output Total 850 ml Balance -730 ml Intake Oral 120 ml Output Urine Total 850 ml General Appearance: no acute distress HEENT: normocephalic Respiratory/Chest: chest wall non-tender, decreased breath sounds Cardiovascular: normal peripheral pulses, normal rate, regular rhythm Abdomen: normal bowel sounds Current Medications Medications (Trade) Dose Ordered Sig/Emmy Route PRN Reason Start Time Stop Time Status Last Admin Dose Admin Albuterol/ Ipratropium (DuoNeb 0.5-3(2.5)mg/3ml) 3 ml Q4H PRN HHN Shortness of Breath 05/30/17 23:00 06/04/17 22:59 Allopurinol (Zyloprim) 100 mg DAILY ORAL 05/31/17 09:00 06/30/17 08:59 06/01/17 08:39 Atorvastatin Calcium (Lipitor) 20 mg BEDTIME ORAL 05/31/17 21:00 06/30/17 20:59 06/01/17 20:11 Azithromycin 500 mg/Dextrose 275 ml @ 275 mls/hr Q24HRS IV 05/31/17 10:00 06/06/17 10:59 06/01/17 10:30 Carvedilol (Coreg) 25 mg EVERY 12 HOURS ORAL 05/31/17 09:00 06/30/17 08:59 06/01/17 20:11 Ceftriaxone Sodium 1 gm/ Dextrose 55 ml @ 110 mls/hr Q24H IVPB 05/31/17 09:00 06/07/17 08:59 06/01/17 08:40 Furosemide (Lasix) 40 mg EVERY 12 HOURS IV 05/30/17 21:00 06/29/17 20:59 06/01/17 20:11 Glipizide (Glucotrol) 5 mg BID ORAL 05/31/17 09:00 06/30/17 08:59 06/01/17 18:03 Hydralazine HCl (Apresoline) 50 mg BID ORAL 05/31/17 09:00 06/30/17 08:59 06/01/17 18:03 Isosorbide Dinitrate (Isordil) 20 mg Q12HR ORAL 06/01/17 09:00 07/01/17 08:59 06/01/17 20:10 Sodium Chloride 1,000 ml @ 60 mls/hr [id number] IV 06/01/17 19:45 07/01/17 19:44 06/01/17 20:18 Tamsulosin HCl (Flomax) 0.4 mg BEDTIME ORAL 05/31/17 21:00 06/30/17 20:59 06/01/17 20:10 Charles Erickson MD Jun 02, 2017 09:22
[2017-06-02] MEDS: Allopurinol 100mg Tab ORAL SCH (09:59)
[2017-06-02] MEDS: cefTRIAXone 1 GM in D5W 55 ML IVPB SCH (10:00)
[2017-06-02] MEDS: Carvedilol 25mg Tab ORAL SCH ×2 (10:01→20:29)
[2017-06-02] MEDS: HydrALAZINE 50mg tab ORAL SCH ×2 (10:02→18:09)
[2017-06-02] MEDS: Azithromycin 500 MG in D5W 275 ML IV SCH (10:08)
[2017-06-02] MEDS: GlipiZIDE 5mg tab ORAL SCH ×2 (10:08→18:09)
--- NOTE | 2017-06-02 11:38 | Diagnostic Imaging Report ---
Indication:Elevated Bun and Creatinine. Technique: Grayscale and duplex Doppler imaging of the kidneys performed. Comparison: None Findings: The size, contour, and echogenicity of both kidneys are within normal limits. Left kidney is 12 CM. Right kidney is 13 CM in length. Small exophytic cyst in the left kidney noted measuring 1.5 cm. There is no hydronephrosis. IVC is unremarkable. The bladder is distended with about 226 cc volume. Impression: Distended urinary bladder. No hydronephrosis. Small left renal cyst
[2017-06-02 11:44] VITALS: BP 119/71
--- NOTE | 2017-06-02 13:57 | Nephrology Progress Note ---
Assessment/Plan Problem List: (1) Upper respiratory infection (2) Congestive heart failure (3) Down syndrome (4) Asthma (5) HTN (hypertension) (6) CKD (chronic kidney disease) (7) Pneumonia Plan Start IVF 0.45%nacl @100cc/hr Cardio following Pulmo following ID following Continue current abx Continue Neb treatment Renal ultrasound result pending Renally dose meds Avoid nephrotoxins Monitor intake and output DVT prophylaxis AM labs Objective Objective Last 24 Hour Vital Signs Date Time Temp Pulse Resp B/P (MAP) Pulse Ox O2 Delivery O2 Flow Rate FiO2 06/02/17 11:44 97.2 76 18 119/71 98 Room Air 06/02/17 10:07 143/76 06/02/17 10:02 143/76 06/02/17 10:01 72 143/76 06/02/17 07:58 97.4 72 18 143/76 98 Room Air 06/02/17 06:49 99 Nasal Cannula 2.0 06/02/17 06:49 75 18 Nasal Cannula 2.0 06/02/17 06:49 Nasal Cannula 2.0 06/02/17 06:48 65 06/02/17 03:54 97.6 75 18 116/58 97 Nasal Cannula 06/02/17 00:10 97.6 72 20 132/77 97 Nasal Cannula 06/01/17 20:31 97.2 73 20 130/58 Nasal Cannula 06/01/17 20:11 77 142/84 06/01/17 20:10 142/84 06/01/17 19:50 93 Nasal Cannula 2.0 06/01/17 19:50 Nasal Cannula 2.0 06/01/17 19:49 77 18 Nasal Cannula 2.0 06/01/17 18:03 142/84 06/01/17 16:00 97.4 64 21 142/84 96 Room Air 06/01/17 16:00 79 Intake and Output 06/02/17 06/03/17 19:00 07:00 Intake Total 360 ml Output Total 850 ml Balance -490 ml Intake Oral 360 ml Output Urine Total 850 ml Height (Feet): 5 Height (Inches): 6.00 Weight (Pounds): 262 MARIELA SOTO Jun 02, 2017 13:57
[2017-06-02 15:41] VITALS: BP 141/92
[2017-06-02 20:00] VITALS: BP 153/88
[2017-06-02] MEDS: Tamsulosin 0.4mg cap ORAL SCH (20:24)
[2017-06-03] VITALS: BP 146/79
[2017-06-03 04:00] VITALS: BP 141/79
[2017-06-03 08:00] VITALS: BP 129/79
[2017-06-03] MEDS: HydrALAZINE 50mg tab ORAL SCH ×2 (09:21→18:32)
[2017-06-03] MEDS: cefTRIAXone 1 GM in D5W 55 ML IVPB SCH (09:21)
[2017-06-03] MEDS: GlipiZIDE 5mg tab ORAL SCH ×3 (09:22→18:34)
[2017-06-03] MEDS: Carvedilol 25mg Tab ORAL SCH ×2 (09:23→21:10)
[2017-06-03] MEDS: Allopurinol 100mg Tab ORAL SCH (09:25)
--- NOTE | 2017-06-03 09:51 | Pulmonology Progress Note ---
Assessment/Plan Assessment/Plan IMPRESSION: 1. Pulmonary edema, doubt pneumonia. 2. End-stage renal disease, on dialysis. 3. CHF DISCUSSION: 1. Agree with present medication and care. 2. Empiric antibiotics. 3. Continue dialysis per renal; oxygen. 4. I will follow. Subjective Interval Events: No new events Constitutional: Reports: no symptoms HEENT: Repors: no symptoms Respiratory: Reports: shortness of breath Cardiovascular: Reports: no symptoms Gastrointestinal/Abdominal: Reports: no symptoms Genitourinary: Reports: no symptoms Neurologic: Reports: no symptoms Allergies: Coded Allergies: No Known Allergies (Unverified , 03/13/17) Objective Last 24 Hour Vital Signs Date Time Temp Pulse Resp B/P (MAP) Pulse Ox O2 Delivery O2 Flow Rate FiO2 06/03/17 09:23 83 129/79 06/03/17 09:22 129/79 06/03/17 09:21 129/79 06/03/17 08:20 95 Nasal Cannula 2.0 06/03/17 08:20 Nasal Cannula 2.0 06/03/17 08:20 83 18 Nasal Cannula 2.0 06/03/17 08:00 96.8 81 20 129/79 98 Nasal Cannula 2.0 06/03/17 04:00 97.3 77 18 141/79 99 2.0 06/03/17 04:00 80 06/03/17 00:00 98.4 91 20 146/79 97 Room Air 06/03/17 00:00 75 06/02/17 20:29 62 141/92 06/02/17 20:24 141/92 06/02/17 20:00 97.0 86 20 153/88 100 Nasal Cannula 2.0 06/02/17 19:30 92 Nasal Cannula 2.0 06/02/17 19:30 Nasal Cannula 2.0 06/02/17 19:30 80 18 Nasal Cannula 2.0 06/02/17 18:09 141/92 06/02/17 16:00 62 06/02/17 15:41 97.0 86 20 141/92 100 Room Air 06/02/17 12:00 72 06/02/17 11:44 97.2 76 18 119/71 98 Room Air 06/02/17 10:07 143/76 06/02/17 10:02 143/76 06/02/17 10:01 72 143/76 General Appearance: no acute distress HEENT: normocephalic Respiratory/Chest: chest wall non-tender, decreased breath sounds Cardiovascular: normal peripheral pulses, normal rate Abdomen: normal bowel sounds, soft, non tender Extremities: no cyanosis Current Medications Medications (Trade) Dose Ordered Sig/Emmy Route PRN Reason Start Time Stop Time Status Last Admin Dose Admin Albuterol/ Ipratropium (DuoNeb 0.5-3(2.5)mg/3ml) 3 ml Q4H PRN HHN Shortness of Breath 05/30/17 23:00 06/04/17 22:59 Allopurinol (Zyloprim) 100 mg DAILY ORAL 05/31/17 09:00 06/30/17 08:59 06/03/17 09:25 Atorvastatin Calcium (Lipitor) 20 mg BEDTIME ORAL 05/31/17 21:00 06/30/17 20:59 06/02/17 20:29 Azithromycin 500 mg/Dextrose 275 ml @ 275 mls/hr Q24HRS IV 05/31/17 10:00 06/06/17 10:59 06/02/17 10:08 Carvedilol (Coreg) 25 mg EVERY 12 HOURS ORAL 05/31/17 09:00 06/30/17 08:59 06/03/17 09:23 Ceftriaxone Sodium 1 gm/ Dextrose 55 ml @ 110 mls/hr Q24H IVPB 05/31/17 09:00 06/07/17 08:59 06/03/17 09:21 Furosemide (Lasix) 40 mg EVERY 12 HOURS IV 05/30/17 21:00 06/29/17 20:59 06/03/17 09:27 Glipizide (Glucotrol) 5 mg BID ORAL 05/31/17 09:00 06/30/17 08:59 06/03/17 09:22 Hydralazine HCl (Apresoline) 50 mg BID ORAL 05/31/17 09:00 06/30/17 08:59 06/03/17 09:21 Isosorbide Dinitrate (Isordil) 20 mg Q12HR ORAL 06/01/17 09:00 07/01/17 08:59 06/03/17 09:22 Sodium Chloride 1,000 ml @ 60 mls/hr [id number] IV 06/01/17 19:45 07/01/17 19:44 06/02/17 20:23 Tamsulosin HCl (Flomax) 0.4 mg BEDTIME ORAL 05/31/17 21:00 06/30/17 20:59 06/02/17 20:24 Charles Erickson MD Jun 03, 2017 09:51
[2017-06-03] MEDS: Azithromycin 500 MG in D5W 275 ML IV SCH (11:11)
--- NOTE | 2017-06-03 11:19 | Diagnostic Imaging Report ---
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 Large collateral vein noted anterior to the superficial femoral artery. Remainder of the deep venous system within normal limits. No evidence of thrombus in the common femoral, popliteal or tibial segments. Greater saphenous vein also within normal limits. LEFT LEG: Venous imaging reveals a patent deep venous system. There is no evidence of thrombus within the femoral, popliteal or tibial segments. The greater saphenous vein is also within normal limits. Doppler indicates normal spontaneous flow within these segments. There is no evidence of acute deep vein thrombosis.
[2017-06-03 12:00] VITALS: BP 127/73
--- NOTE | 2017-06-03 15:41 | Infectious Diseases Prog Note ---
Assessment/Plan Problems: (1) CAP (community acquired pneumonia) Assessment & Plan: improving on the current antibiotics regimen with ceftriaxon and zithromax, monitor CXR (2) Asthma Assessment & Plan: with acute exacerbation, due to the above , continue antibiotics, inhalers, and O2 (3) CKD (chronic kidney disease) Assessment & Plan: monitor renal function, and urine output, avoid nephrotoxic meds (4) Diabetes Assessment & Plan: recommend tight glycemic control to keep blood glucose between 80-120 (5) Congestive heart failure Assessment & Plan: monitor daily weight and urine out put, needs diuresis , cardiology is following (6) Chronic deep vein thrombosis (DVT) Assessment & Plan: of the left leg, recommend hematology consult for further eval and managment Subjective Constitutional: Reports: no symptoms HEENT: Reports: no symptoms Respiratory: Reports: dry cough Breasts: Reports: no symptoms Cardiovascular: Reports: no symptoms Gastrointestinal/Abdominal: Reports: no symptoms Genitourinary: Reports: no symptoms Neurologic: Reports: no symptoms Psychiatric: Reports: no symptoms Skin: Reports: no symptoms Endocrine: Reports: no symptoms Hematologic: Reports: no symptoms Musculoskeletal: Reports: no symptoms Allergies: Coded Allergies: No Known Allergies (Unverified , 03/13/17) Objective Vital Signs Last 24 Hour Vital Signs Date Time Temp Pulse Resp B/P (MAP) Pulse Ox O2 Delivery O2 Flow Rate FiO2 06/03/17 12:00 96.8 76 20 127/73 98 Room Air 06/03/17 12:00 76 06/03/17 09:23 83 129/79 06/03/17 09:22 129/79 06/03/17 09:21 129/79 06/03/17 08:20 95 Nasal Cannula 2.0 06/03/17 08:20 Nasal Cannula 2.0 06/03/17 08:20 83 18 Nasal Cannula 2.0 06/03/17 08:00 83 06/03/17 08:00 96.8 81 20 129/79 98 Nasal Cannula 2.0 06/03/17 04:00 97.3 77 18 141/79 99 2.0 06/03/17 04:00 80 06/03/17 00:00 98.4 91 20 146/79 97 Room Air 06/03/17 00:00 75 06/02/17 20:29 62 141/92 06/02/17 20:24 141/92 06/02/17 20:00 97.0 86 20 153/88 100 Nasal Cannula 2.0 06/02/17 19:30 92 Nasal Cannula 2.0 06/02/17 19:30 Nasal Cannula 2.0 28 06/02/17 19:30 80 18 Nasal Cannula 2.0 06/02/17 18:09 141/92 06/02/17 16:00 62 06/02/17 15:41 97.0 86 20 141/92 100 Room Air Height (Feet): 5 Height (Inches): 6.00 Weight (Pounds): 198 General Appearance: WD/WN, no acute distress HEENT: normocephalic, atraumatic, anicteric, mucous membranes moist, PERRL, EOMI, pharynx normal, supple, no JVD Respiratory/Chest: chest wall non-tender, no respiratory distress, no accessory muscle use, decreased breath sounds, expiratory wheezing Cardiovascular: normal peripheral pulses, normal rate, regular rhythm, no gallop/murmur, no JVD Abdomen: normal bowel sounds, soft, non tender, no organomegaly, non distended , no mass, no scars Extremities: no cyanosis, no clubbing Skin: no rash, no lesions, no ulcers Neurologic/Psychiatric: alert, oriented x 3 Lymphatic: no neck adenopathy, no groin adenopathy Current Medications Medications (Trade) Dose Ordered Sig/Emmy Route PRN Reason Start Time Stop Time Status Last Admin Dose Admin Albuterol/ Ipratropium (DuoNeb 0.5-3(2.5)mg/3ml) 3 ml Q4H PRN HHN Shortness of Breath 05/30/17 23:00 06/04/17 22:59 Allopurinol (Zyloprim) 100 mg DAILY ORAL 05/31/17 09:00 06/30/17 08:59 06/03/17 09:25 Atorvastatin Calcium (Lipitor) 20 mg BEDTIME ORAL 05/31/17 21:00 06/30/17 20:59 06/02/17 20:29 Azithromycin 500 mg/Dextrose 275 ml @ 275 mls/hr Q24HRS IV 05/31/17 10:00 06/06/17 10:59 06/03/17 11:11 Carvedilol (Coreg) 25 mg EVERY 12 HOURS ORAL 05/31/17 09:00 06/30/17 08:59 06/03/17 09:23 Ceftriaxone Sodium 1 gm/ Dextrose 55 ml @ 110 mls/hr Q24H IVPB 05/31/17 09:00 06/07/17 08:59 06/03/17 09:21 Furosemide (Lasix) 40 mg EVERY 12 HOURS IV 05/30/17 21:00 06/29/17 20:59 06/03/17 09:27 Glipizide (Glucotrol) 5 mg BID ORAL 05/31/17 09:00 06/30/17 08:59 06/03/17 09:22 Hydralazine HCl (Apresoline) 50 mg BID ORAL 05/31/17 09:00 06/30/17 08:59 06/03/17 09:21 Isosorbide Dinitrate (Isordil) 20 mg Q12HR ORAL 06/01/17 09:00 07/01/17 08:59 06/03/17 09:22 Sodium Chloride 1,000 ml @ 60 mls/hr [id number] IV 06/01/17 19:45 07/01/17 19:44 06/02/17 20:23 Tamsulosin HCl (Flomax) 0.4 mg BEDTIME ORAL 05/31/17 21:00 06/30/17 20:59 06/02/17 20:24 Audelia Lind M.D. Jun 03, 2017 15:41
[2017-06-03 16:08] VITALS: BP 149/80
--- NOTE | 2017-06-03 17:15 | Cardiac Electrophysiology PN ---
Assessment/Plan Assessment/Plan 1. Congestive heart failure with EF 40%. On Coreg 25 mg b.i.d., hydralazine 50 mg b.i.d., Isordil 20 mg b.i.d.and Lasix 40 mg IV b.i.d.. Avoid Aldactone for risk of hyperkalemia for renal failure. 2. Hypertension. Continue current medications. 3. Chronic kidney disease with creatinine of around 3. 4. Chronic obstructive pulmonary disease and pneumonia, on ceftriaxone and Zithromax. BRITT RN Subjective Subjective Feeling better.No chest pain or SOB. No arrhythmias on tele.. Objective Last 24 Hour Vital Signs Date Time Temp Pulse Resp B/P (MAP) Pulse Ox O2 Delivery O2 Flow Rate FiO2 06/03/17 16:08 97.3 74 18 149/80 96 Nasal Cannula 2.0 06/03/17 12:00 96.8 76 20 127/73 98 Room Air 06/03/17 12:00 76 06/03/17 09:23 83 129/79 06/03/17 09:22 129/79 06/03/17 09:21 129/79 06/03/17 08:20 95 Nasal Cannula 2.0 06/03/17 08:20 Nasal Cannula 2.0 06/03/17 08:20 83 18 Nasal Cannula 2.0 06/03/17 08:00 83 06/03/17 08:00 96.8 81 20 129/79 98 Nasal Cannula 2.0 06/03/17 04:00 97.3 77 18 141/79 99 2.0 06/03/17 04:00 80 06/03/17 00:00 98.4 91 20 146/79 97 Room Air 06/03/17 00:00 75 06/02/17 20:29 62 141/92 06/02/17 20:24 141/92 06/02/17 20:00 97.0 86 20 153/88 100 Nasal Cannula 2.0 06/02/17 19:30 92 Nasal Cannula 2.0 06/02/17 19:30 Nasal Cannula 2.0 06/02/17 19:30 80 18 Nasal Cannula 2.0 06/02/17 18:09 141/92 Intake and Output 06/03/17 06/04/17 19:00 07:00 Intake Total 500 ml Output Total 900 ml Balance -400 ml Intake Oral 500 ml Output Urine Total 900 ml Objective HEAD AND NECK: Shows positive JVD. LUNGS: Coarse rhonchi bilaterally. CARDIOVASCULAR: Shows irregular S1 and S2 with no gallop or murmur. ABDOMEN: Obese. EXTREMITIES: 2+ pitting edema. LUDIVINA CHATMAN Jun 03, 2017 17:15
[2017-06-03 20:00] VITALS: BP 157/84
--- NOTE | 2017-06-03 20:53 | Nephrology Progress Note ---
Assessment/Plan Problem List: (1) ATN (acute tubular necrosis) (2) CKD (chronic kidney disease) (3) Upper respiratory infection (4) Congestive heart failure (5) Down syndrome (6) Diabetes (7) Asthma Plan DC IVF Free water restriction Cardio following Pulmo following ID following Continue current abx Continue Neb treatment Renal function worsening Renally dose meds Avoid nephrotoxins Monitor intake and output DVT prophylaxis DC in am if ok with cardio AM labs Subjective Subjective In no apparent distress, family at bedside who stated that the patient is not ready to go home because he's been coughing a lot and that his feet is still swollen Objective Objective Last 24 Hour Vital Signs Date Time Temp Pulse Resp B/P (MAP) Pulse Ox O2 Delivery O2 Flow Rate FiO2 06/03/17 18:32 149/80 06/03/17 16:08 97.3 74 18 149/80 96 Nasal Cannula 2.0 06/03/17 16:00 73 06/03/17 12:00 96.8 76 20 127/73 98 Room Air 06/03/17 12:00 76 06/03/17 09:23 83 129/79 06/03/17 09:22 129/79 06/03/17 09:21 129/79 06/03/17 08:20 95 Nasal Cannula 2.0 28 06/03/17 08:20 Nasal Cannula 2.0 28 06/03/17 08:20 83 18 Nasal Cannula 2.0 28 06/03/17 08:00 83 06/03/17 08:00 96.8 81 20 129/79 98 Nasal Cannula 2.0 06/03/17 04:00 97.3 77 18 141/79 99 2.0 06/03/17 04:00 80 06/03/17 00:00 98.4 91 20 146/79 97 Room Air 06/03/17 00:00 75 Intake and Output 06/03/17 06/04/17 19:00 07:00 Intake Total 2513 ml Output Total 1500 ml Balance 1013 ml Intake Oral 860 ml IV Total 1653 ml Output Urine Total 1500 ml # Bowel Movements 1 Height (Feet): 5 Height (Inches): 6.00 Weight (Pounds): 198 General Appearance: no apparent distress, alert EENT: normal ENT inspection, TMs normal Neck: non-tender, normal alignment, supple Cardiovascular: normal rate, regular rhythm Respiratory/Chest: normal breath sounds, no respiratory distress Abdomen: non tender, soft Extremities: non-tender, moderate edema Neurologic: oriented x 3, responsive, normal mood/affect Shiloh Callaway N.P. Jun 03, 2017 20:53
[2017-06-03] MEDS: Tamsulosin 0.4mg cap ORAL SCH (21:07)
[2017-06-03] MEDS ORDERED: Guaifenesin/DM 10ml syrup ORAL PRN (23:45)
[2017-06-04] VITALS: BP 157/79
[2017-06-04 04:00] VITALS: BP 166/80
[2017-06-04 06:38] LABS: BASOPHILS % (AUTO) 0.8 % (0.0-2.0); EOSINOPHILS % (AUTO) 3.2 % (0.0-3.0); LYMPHOCYTES % (AUTO) 29.6 % (20.0-45.0); MEAN CORPUSCULAR HEMOGLOBIN 29.6 PG (27.0-31.0); MEAN CORPUSCULAR HGB CONC 32.6 G/DL (32.0-36.0); MEAN CORPUSCULAR VOLUME 91 FL (80-99); MEAN PLATELET VOLUME 5.8 FL (6.5-10.1); MONOCYTES % (AUTO) 7.8 % (1.0-10.0); NEUTROPHILS % (AUTO) 58.6 % (45.0-75.0); PLATELET COUNT 222 K/UL (150-450); RED BLOOD COUNT 3.24 M/UL (4.70-6.10); RED CELL DISTRIBUTION WIDTH 14.4 % (11.6-14.8); WHITE BLOOD COUNT 4.3 K/UL (4.8-10.8)
[2017-06-04 07:06] LABS: CALCIUM 8.3 mg/dL (8.6-10.2); GLOMERULAR FILTRATION RATE 26.4 mL/min (>60); POTASSIUM 3.8 mEQ/L (3.4-4.9)
[2017-06-04 08:00] VITALS: BP 156/85
[2017-06-04] MEDS: GlipiZIDE 5mg tab ORAL SCH ×2 (09:29→17:57)
[2017-06-04] MEDS: Carvedilol 25mg Tab ORAL SCH (09:29)
[2017-06-04] MEDS: HydrALAZINE 50mg tab ORAL SCH ×2 (09:29→17:58)
[2017-06-04] MEDS: cefTRIAXone 1 GM in D5W 55 ML IVPB SCH (09:29)
[2017-06-04] MEDS: Allopurinol 100mg Tab ORAL SCH (09:30)
[2017-06-04] MEDS ORDERED: NS 275ml ONE ×2 (09:38→16:39)
[2017-06-04] MEDS ORDERED: Tubing IV Secondary IV ONE (09:38)
[2017-06-04] MEDS: Azithromycin 500 MG in D5W 275 ML IV SCH (10:27)
[2017-06-04 12:00] VITALS: BP 135/74
--- NOTE | 2017-06-04 12:49 | Pulmonology Progress Note ---
Assessment/Plan Assessment/Plan IMPRESSION: 1. Pulmonary edema, doubt pneumonia. 2. End-stage renal disease, on dialysis. 3. CHF DISCUSSION: 1. Agree with present medication and care. 2. Empiric antibiotics. 3. Continue dialysis per renal; oxygen. 4. I will follow. Subjective Interval Events: None Constitutional: Reports: no symptoms HEENT: Repors: no symptoms Respiratory: Reports: shortness of breath Cardiovascular: Reports: no symptoms Gastrointestinal/Abdominal: Reports: no symptoms Allergies: Coded Allergies: No Known Allergies (Unverified , 03/13/17) Objective Last 24 Hour Vital Signs Date Time Temp Pulse Resp B/P (MAP) Pulse Ox O2 Delivery O2 Flow Rate FiO2 06/04/17 09:30 166/80 06/04/17 09:29 166/80 06/04/17 09:29 74 166/80 06/04/17 08:25 94 Room Air 21 06/04/17 08:25 Room Air 21 06/04/17 08:25 80 18 Room Air 21 06/04/17 08:00 97.3 85 19 156/85 96 Room Air 06/04/17 08:00 75 06/04/17 04:00 97.9 74 20 166/80 97 Room Air 06/04/17 04:00 74 06/04/17 00:00 69 06/04/17 00:00 97.3 78 20 157/79 94 Room Air 06/03/17 21:13 157/88 06/03/17 21:10 78 157/88 06/03/17 20:00 97.0 82 20 157/84 99 Room Air 06/03/17 20:00 81 06/03/17 19:30 Nasal Cannula 2.0 06/03/17 19:30 94 Nasal Cannula 2.0 06/03/17 19:30 84 18 Nasal Cannula 2.0 06/03/17 18:32 149/80 06/03/17 16:08 97.3 74 18 149/80 96 Nasal Cannula 2.0 06/03/17 16:00 73 Intake and Output 06/04/17 06/05/17 19:00 07:00 Output Total 500 ml Balance -500 ml Output Urine Total 500 ml General Appearance: no acute distress HEENT: normocephalic Respiratory/Chest: chest wall non-tender Cardiovascular: normal peripheral pulses Abdomen: normal bowel sounds Extremities: no cyanosis Laboratory Tests 06/04/17 06:15: White Blood Count 4.3L, Red Blood Count 3.24L, Hemoglobin 9.6L, Hematocrit 29.4L , Mean Corpuscular Volume 91, Mean Corpuscular Hemoglobin 29.6, Mean Corpuscular Hemoglobin Concent 32.6, Red Cell Distribution Width 14.4, Platelet Count 222, Mean Platelet Volume 5.8L, Neutrophils (%) (Auto) 58.6, Lymphocytes ( %) (Auto) 29.6, Monocytes (%) (Auto) 7.8, Eosinophils (%) (Auto) 3.2H, Basophils (%) (Auto) 0.8, Sodium Level 145, Potassium Level 3.8, Chloride Level 108H, Carbon Dioxide Level 21, Anion Gap 16H, Blood Urea Nitrogen 51H, Creatinine 3.0H, Estimat Glomerular Filtration Rate 26.4, Glucose Level 93, Calcium Level 8.3L Current Medications Medications (Trade) Dose Ordered Sig/Emmy Route PRN Reason Start Time Stop Time Status Last Admin Dose Admin Albuterol/ Ipratropium (DuoNeb 0.5-3(2.5)mg/3ml) 3 ml Q4H PRN HHN Shortness of Breath 05/30/17 23:00 06/04/17 22:59 Allopurinol (Zyloprim) 100 mg DAILY ORAL 05/31/17 09:00 06/30/17 08:59 06/04/17 09:30 Atorvastatin Calcium (Lipitor) 20 mg BEDTIME ORAL 05/31/17 21:00 06/30/17 20:59 06/03/17 21:10 Azithromycin 500 mg/Dextrose 275 ml @ 275 mls/hr Q24HRS IV 05/31/17 10:00 06/06/17 10:59 06/04/17 10:27 Carvedilol (Coreg) 25 mg EVERY 12 HOURS ORAL 05/31/17 09:00 06/30/17 08:59 06/04/17 09:29 Ceftriaxone Sodium 1 gm/ Dextrose 55 ml @ 110 mls/hr Q24H IVPB 05/31/17 09:00 06/07/17 08:59 06/04/17 09:29 Furosemide (Lasix) 40 mg EVERY 12 HOURS IV 05/30/17 21:00 06/29/17 20:59 06/04/17 09:29 Glipizide (Glucotrol) 5 mg BID ORAL 05/31/17 09:00 06/30/17 08:59 06/04/17 09:29 Guaifenesin/ Dextromethorphan (Robitussin DM Syrup) 10 ml FOUR TIMES A DAY PRN ORAL For Cough 06/03/17 23:45 07/03/17 23:44 06/04/17 09:29 Hydralazine HCl (Apresoline) 50 mg BID ORAL 05/31/17 09:00 06/30/17 08:59 06/04/17 09:29 Isosorbide Dinitrate (Isordil) 20 mg Q12HR ORAL 06/01/17 09:00 07/01/17 08:59 06/04/17 09:30 Tamsulosin HCl (Flomax) 0.4 mg BEDTIME ORAL 05/31/17 21:00 06/30/17 20:59 06/03/17 21:07 Charles Erickson MD Jun 04, 2017 12:49
--- NOTE | 2017-06-04 14:57 | Infectious Diseases Prog Note ---
Assessment/Plan Problems: (1) CAP (community acquired pneumonia) Assessment & Plan: improving on the current antibiotics regimen with ceftriaxon and zithromax, continue for 7 days total (2) Asthma Assessment & Plan: with acute exacerbation, due to the above , continue antibiotics, inhalers, and O2 (3) CKD (chronic kidney disease) Assessment & Plan: monitor renal function, and urine output, avoid nephrotoxic meds (4) Diabetes Assessment & Plan: recommend tight glycemic control to keep blood glucose between 80-120 (5) Congestive heart failure Assessment & Plan: monitor daily weight and urine out put, needs diuresis , cardiology is following (6) Chronic deep vein thrombosis (DVT) Assessment & Plan: of the left leg, recommend hematology consult for further eval and managment Subjective Constitutional: Reports: no symptoms HEENT: Reports: no symptoms Respiratory: Reports: dry cough Breasts: Reports: no symptoms Cardiovascular: Reports: no symptoms Gastrointestinal/Abdominal: Reports: no symptoms Genitourinary: Reports: no symptoms Neurologic: Reports: no symptoms Psychiatric: Reports: no symptoms Skin: Reports: no symptoms Endocrine: Reports: no symptoms Hematologic: Reports: no symptoms Musculoskeletal: Reports: no symptoms Allergies: Coded Allergies: No Known Allergies (Unverified , 03/13/17) Objective Vital Signs Last 24 Hour Vital Signs Date Time Temp Pulse Resp B/P (MAP) Pulse Ox O2 Delivery O2 Flow Rate FiO2 06/04/17 12:00 97.4 76 23 135/74 98 Room Air 06/04/17 12:00 74 06/04/17 09:30 166/80 06/04/17 09:29 166/80 06/04/17 09:29 74 166/80 06/04/17 08:25 94 Room Air 21 06/04/17 08:25 Room Air 21 06/04/17 08:25 80 18 Room Air 21 06/04/17 08:00 97.3 85 19 156/85 96 Room Air 06/04/17 08:00 75 06/04/17 04:00 97.9 74 20 166/80 97 Room Air 06/04/17 04:00 74 06/04/17 00:00 69 06/04/17 00:00 97.3 78 20 157/79 94 Room Air 06/03/17 21:13 157/88 06/03/17 21:10 78 157/88 06/03/17 20:00 97.0 82 20 157/84 99 Room Air 06/03/17 20:00 81 06/03/17 19:30 Nasal Cannula 2.0 06/03/17 19:30 94 Nasal Cannula 2.0 06/03/17 19:30 84 18 Nasal Cannula 2.0 06/03/17 18:32 149/80 06/03/17 16:08 97.3 74 18 149/80 96 Nasal Cannula 2.0 06/03/17 16:00 73 Height (Feet): 5 Height (Inches): 6.00 Weight (Pounds): 197 General Appearance: WD/WN, no acute distress HEENT: normocephalic, atraumatic, anicteric, mucous membranes moist, EOMI, pharynx normal, supple, no JVD Respiratory/Chest: chest wall non-tender, no respiratory distress, no accessory muscle use, decreased breath sounds, expiratory wheezing Cardiovascular: normal peripheral pulses, normal rate, regular rhythm, no gallop/murmur, no JVD Abdomen: normal bowel sounds, soft, non tender, no organomegaly, non distended , no mass, no scars Extremities: no cyanosis, no clubbing Skin: no rash, no lesions, no ulcers Neurologic/Psychiatric: alert, oriented x 3 Lymphatic: no neck adenopathy, no groin adenopathy Musculoskeletal: normal muscle bulk Laboratory Tests Test 06/04/17 06:15 White Blood Count 4.3 K/UL (4.8-10.8) L Red Blood Count 3.24 M/UL (4.70-6.10) L Hemoglobin 9.6 G/DL (14.2-18.0) L Hematocrit 29.4 % (42.0-52.0) L Mean Corpuscular Volume 91 FL (80-99) Mean Corpuscular Hemoglobin 29.6 PG (27.0-31.0) Mean Corpuscular Hemoglobin Concent 32.6 G/DL (32.0-36.0) Red Cell Distribution Width 14.4 % (11.6-14.8) Platelet Count 222 K/UL (150-450) Mean Platelet Volume 5.8 FL (6.5-10.1) L Neutrophils (%) (Auto) 58.6 % (45.0-75.0) Lymphocytes (%) (Auto) 29.6 % (20.0-45.0) Monocytes (%) (Auto) 7.8 % (1.0-10.0) Eosinophils (%) (Auto) 3.2 % (0.0-3.0) H Basophils (%) (Auto) 0.8 % (0.0-2.0) Sodium Level 145 mEQ/L (135-145) Potassium Level 3.8 mEQ/L (3.4-4.9) Chloride Level 108 mEQ/L (98-107) H Carbon Dioxide Level 21 mEQ/L (20-30) Anion Gap 16 (5-15) H Blood Urea Nitrogen 51 mg/dL (7-23) H Creatinine 3.0 mg/dL (0.7-1.2) H Estimat Glomerular Filtration Rate 26.4 mL/min (>60) Glucose Level 93 mg/dL (74-106) Calcium Level 8.3 mg/dL (8.6-10.2) L Current Medications Medications (Trade) Dose Ordered Sig/Emmy Route PRN Reason Start Time Stop Time Status Last Admin Dose Admin Albuterol/ Ipratropium (DuoNeb 0.5-3(2.5)mg/3ml) 3 ml Q4H PRN HHN Shortness of Breath 05/30/17 23:00 06/04/17 22:59 Allopurinol (Zyloprim) 100 mg DAILY ORAL 05/31/17 09:00 06/30/17 08:59 06/04/17 09:30 Atorvastatin Calcium (Lipitor) 20 mg BEDTIME ORAL 05/31/17 21:00 06/30/17 20:59 06/03/17 21:10 Azithromycin (Zithromax) 500 mg DAILY ORAL 06/05/17 09:00 06/12/17 08:59 Carvedilol (Coreg) 25 mg EVERY 12 HOURS ORAL 05/31/17 09:00 06/30/17 08:59 06/04/17 09:29 Ceftriaxone Sodium 1 gm/ Dextrose 55 ml @ 110 mls/hr Q24H IVPB 05/31/17 09:00 06/07/17 08:59 06/04/17 09:29 Furosemide (Lasix) 40 mg EVERY 12 HOURS IV 05/30/17 21:00 06/29/17 20:59 06/04/17 09:29 Glipizide (Glucotrol) 5 mg BID ORAL 05/31/17 09:00 06/30/17 08:59 06/04/17 09:29 Guaifenesin/ Dextromethorphan (Robitussin DM Syrup) 10 ml FOUR TIMES A DAY PRN ORAL For Cough 06/03/17 23:45 07/03/17 23:44 06/04/17 09:29 Hydralazine HCl (Apresoline) 50 mg BID ORAL 05/31/17 09:00 06/30/17 08:59 06/04/17 09:29 Isosorbide Dinitrate (Isordil) 20 mg Q12HR ORAL 06/01/17 09:00 07/01/17 08:59 06/04/17 09:30 Tamsulosin HCl (Flomax) 0.4 mg BEDTIME ORAL 05/31/17 21:00 06/30/17 20:59 06/03/17 21:07 Audelia Lind M.D. Jun 04, 2017 14:57
--- NOTE | 2017-06-04 15:54 | Cardiology Report ---
APPROVED REPORT EKG Measurement Heart [id number] MA 150P53 [id number] Sinus rhythm with frequent premature ventricular complexes Nonspecific T wave abnormality Prolonged QT Abnormal ECG
[2017-06-04 16:00] VITALS: BP 159/91
--- NOTE | 2017-06-04 17:02 | Cardiac Electrophysiology PN ---
Assessment/Plan Assessment/Plan 1. Congestive heart failure with EF 40%. On Coreg 25 mg b.i.d., hydralazine 50 mg b.i.d., Isordil 20 mg b.i.d.and Lasix 40 mg IV b.i.d.. Off Aldactone for risk of hyperkalemia for renal failure. 2. Hypertension. Continue coreg,hydralazine, isordil and Lasix 3. Chronic kidney disease with creatinine of around 3. 4. Chronic obstructive pulmonary disease and pneumonia, on ceftriaxone and Zithromax. BRITT RN OK to DC from cardiac standpoint. Subjective Subjective Feeling better.No chest pain or SOB. No arrhythmias on tele.Ready to go home. Objective Last 24 Hour Vital Signs Date Time Temp Pulse Resp B/P (MAP) Pulse Ox O2 Delivery O2 Flow Rate FiO2 06/04/17 12:00 97.4 76 23 135/74 98 Room Air 06/04/17 12:00 74 06/04/17 09:30 166/80 06/04/17 09:29 166/80 06/04/17 09:29 74 166/80 06/04/17 08:25 94 Room Air 21 06/04/17 08:25 Room Air 21 06/04/17 08:25 80 18 Room Air 21 06/04/17 08:00 97.3 85 19 156/85 96 Room Air 06/04/17 08:00 75 06/04/17 04:00 97.9 74 20 166/80 97 Room Air 06/04/17 04:00 74 06/04/17 00:00 69 06/04/17 00:00 97.3 78 20 157/79 94 Room Air 06/03/17 21:13 157/88 06/03/17 21:10 78 157/88 06/03/17 20:00 97.0 82 20 157/84 99 Room Air 06/03/17 20:00 81 06/03/17 19:30 Nasal Cannula 2.0 06/03/17 19:30 94 Nasal Cannula 2.0 06/03/17 19:30 84 18 Nasal Cannula 2.0 06/03/17 18:32 149/80 Intake and Output 06/04/17 06/05/17 19:00 07:00 Intake Total 220 ml Output Total 500 ml Balance -280 ml Intake Oral 220 ml Output Urine Total 500 ml Laboratory Tests Test 06/04/17 06:15 White Blood Count 4.3 K/UL (4.8-10.8) L Red Blood Count 3.24 M/UL (4.70-6.10) L Hemoglobin 9.6 G/DL (14.2-18.0) L Hematocrit 29.4 % (42.0-52.0) L Mean Corpuscular Volume 91 FL (80-99) Mean Corpuscular Hemoglobin 29.6 PG (27.0-31.0) Mean Corpuscular Hemoglobin Concent 32.6 G/DL (32.0-36.0) Red Cell Distribution Width 14.4 % (11.6-14.8) Platelet Count 222 K/UL (150-450) Mean Platelet Volume 5.8 FL (6.5-10.1) L Neutrophils (%) (Auto) 58.6 % (45.0-75.0) Lymphocytes (%) (Auto) 29.6 % (20.0-45.0) Monocytes (%) (Auto) 7.8 % (1.0-10.0) Eosinophils (%) (Auto) 3.2 % (0.0-3.0) H Basophils (%) (Auto) 0.8 % (0.0-2.0) Sodium Level 145 mEQ/L (135-145) Potassium Level 3.8 mEQ/L (3.4-4.9) Chloride Level 108 mEQ/L (98-107) H Carbon Dioxide Level 21 mEQ/L (20-30) Anion Gap 16 (5-15) H Blood Urea Nitrogen 51 mg/dL (7-23) H Creatinine 3.0 mg/dL (0.7-1.2) H Estimat Glomerular Filtration Rate 26.4 mL/min (>60) Glucose Level 93 mg/dL (74-106) Calcium Level 8.3 mg/dL (8.6-10.2) L Objective HEAD AND NECK: No JVD. LUNGS: Coarse rhonchi bilaterally. CARDIOVASCULAR: Shows irregular S1 and S2 with no gallop or murmur. ABDOMEN: Obese. EXTREMITIES: 2+ pitting edema. LUDIVINA CHATMAN Jun 04, 2017 17:02
[2017-06-04 17:58] VITALS: BP 135/74
[2017-06-05] MEDS ORDERED: Azithromycin 250mg tab ORAL SCH (09:00)
--- NOTE | 2017-06-06 13:57 | Discharge Summary ---
Discharge Summary Hospital Course Date of Admission May 30, 2017 at 16:51 Date of Discharge Jun 04, 2017 at 16:40 Admitting Diagnosis pneumonia HPI Rigo Vargas is a 56 year old male who was admitted on May 30, 2017 at 16:51 for Pneumonia Hospital Course [id number] Discharge Discharge Disposition Patient was discharged to Home (01) Discharge Diagnoses: Dayami Wing NP Jun 06, 2017 13:57
--- NOTE | 2017-06-07 02:15 | Discharge Summary 2 SIG ---
DATE OF ADMISSION: 05/30/2017 DATE OF DISCHARGE: 06/04/2017 CONSULTANTS: 1. Joby Wiggins M.D. 2. Audelia Lind M.D. 3. Charles Erickson M.D. BRIEF HOSPITAL COURSE: The patient is a 56-year-old male with history of hypertension, hyperlipidemia, diabetes mellitus, CHF, asthma, and Down syndrome, who presented to ED complaining of cough with shortness of breath for three to four days. He stated that he has been using pump every 3 hours without any relief. He denies fever or chills, but has cough productive with yellow sputum. He was recently hospitalized. On evaluation at ED, chest x-ray done showed CHF versus pneumonia. There was presence of pulmonary vascular congestion versus bilateral infiltrates. EKG showed normal sinus rhythm with prolonged QT and T-wave inversion in leads I and aVL, and there were PVCs; however, no acute ST to T-wave changes. He was admitted for upper respiratory infection, CHF, asthma, CKD, and hypertension. He was also started on empiric antibiotics, ceftriaxone and azithromycin. Per Dr. Wiggins, the patient had an echocardiogram done before, EF was 40%. He was continued on Coreg, hydralazine, and Isordil. Off Aldactone due to hyperkalemia. There had been no recurrence of chest pain or shortness of breath. He was eventually discharged home. FINAL DIAGNOSES: 1. Congestive heart failure with ejection fraction of 40%. 2. Hypertension. 3. Chronic kidney disease, creatinine of around 3. 4. Chronic obstructive pulmonary disease. 5. Community-acquired pneumonia. 6. Asthma with acute exacerbation. 7. Chronic kidney disease. 8. Chronic deep venous thrombosis. 9. Diabetes mellitus. 10. Acute tubular necrosis. 11. Down syndrome. DISPOSITION: The patient was discharged home. DISCHARGE MEDICATIONS: Refer to medication list. Henrique Lane M.D. I have been assigned to dictate discharge summary on this account and I was not involved in the patient's management. Dayami Wing N.P. DR: Katty JOB#: [id number] CC:
== END 2017-06-04 16:40 | disposition home or self-care (01) | DRG 193 ==
LOC: EDBD 13:47 → EMR 15:50 → EDBEDREQSVC 16:04 → 2E 16:51 → EDBEDREQ 17:38
DX: J18.9 Pneumonia, unspecified organism (principal); N17.0 Acute kidney failure with tubular necrosis; J45.901 Unspecified asthma with (acute) exacerbation; I82.5Z9 Chronic embolism and thrombosis of unspecified deep veins of unspecified distal lower extremity; I50.9 Heart failure, unspecified; N18.9 Chronic kidney disease, unspecified; E78.5 Hyperlipidemia, unspecified; Q90.9 Down syndrome, unspecified; I12.9 Hypertensive chronic kidney disease with stage 1 through stage 4 chronic kidney disease, or unspecified chronic kidney disease; E11.22 Type 2 diabetes mellitus with diabetic chronic kidney disease
CPT/HCPCS: 36415; 71010; 76775; 80048; 80053; 82550; 82553; 82575; 82962; 83880; 84484; 85025; 93005; 93970; 94640; 94664; 94760; 99285; J7620

== ENCOUNTER 2018-09-02 16:34 | Emergency (ER) | payer MEDICARE, MEDICAID ==
[~2018-09-02] VITALS: Ht 185.4 cm; Wt 111.1 kg
[2018-09-02 16:45] VITALS: BP 160/78
[2018-09-02] MEDS ORDERED: Albuterol ud Inhalation HHN ONE (17:15)
--- NOTE | 2018-09-02 17:51 | Emergency Room Report ---
History of Present Illness General Chief Complaint: Asthma Source: Patient Present Illness HPI This patient has a history of asthma. He states that he has had cough and shortness of breath for the past 3 days. He has been using his home albuterol inhaler. He has a history of multiple medical conditions. These include renal failure, congestive heart failure. He denies fever or chills. He denies nausea or vomiting. He states the last time he had a cough like this he developed a pneumonia. He has no other complaints. Allergies: Coded Allergies: No Known Allergies (Unverified , 03/13/17) Patient History Past Medical History: see triage record, DM, HTN, CAD, CHF, asthma, CVA/TIA, renal disease, dialysis Social History: Denies: smoking, alcohol use, drug use Reviewed Nursing Documentation: PMH: Agreed; PSxH: Agreed Nursing Documentation-PMH Past Medical History: No History, Except For Hx Cardiac Problems: Yes Hx Hypertension: Yes Hx Asthma: Yes Hx Diabetes: Yes - TTS Hx Cancer: No Hx Gastrointestinal Problems: No Hx Neurological Problems: Yes Hx Cerebrovascular Accident: Yes Hx Neurologic Surgery: No Review of Systems All Other Systems: negative except mentioned in HPI Physical Exam Vital Signs Date Time Temp Pulse Resp B/P (MAP) Pulse Ox O2 Delivery O2 Flow Rate FiO2 09/02/18 16:42 97.9 79 19 160/78 97 Room Air 09/02/18 17:25 21 Sp02 EP Interpretation: reviewed, normal General Appearance: no apparent distress, alert, GCS 15, non-toxic Head: normocephalic, atraumatic Eyes: bilateral eye normal inspection, bilateral eye PERRL ENT: hearing grossly normal, normal pharynx, no angioedema, normal voice Neck: full range of motion, supple/symm/no masses Respiratory: chest non-tender, lungs clear, normal breath sounds, no respiratory distress, no retraction, no accessory muscle use, speaking full sentences Cardiovascular #1: regular rate, rhythm, no edema Gastrointestinal: normal bowel sounds, non tender, soft, non-distended, no guarding, no rebound Rectal: deferred Musculoskeletal: back normal, gait/station normal, normal range of motion, non- tender Neurologic: alert, oriented x3, responsive, motor strength/tone normal, sensory intact, speech normal Psychiatric: judgement/insight normal, memory normal, mood/affect normal, no suicidal/homicidal ideation Skin: normal color, no rash, warm/dry, well hydrated Medical Decision Making Diagnostic Impression: Primary Impression: Asthma exacerbation Additional Impression: URI (upper respiratory infection) ER Course This patient has a clinical presentation consistent with upper respiratory infection. He does have a history of asthma. He did not have any wheezing on exam but did have an irritable cough. The patient was given albuterol nebulizer treatments. I will also treat the patient with a course of antibiotics as this has been shown to improve the course of an asthma exacerbation. The patient was given close return precautions and followup instructions. Chest X-Ray Diagnostic Results Chest X-Ray Diagnostic Results : Chest X-Ray Ordered: Yes # of Views/Limited/Complete: 1 View Indication: Shortness of Breath EP Interpretation: Yes Interpretation: no consolidation, no effusion, no pneumothorax, no acute cardiopulmonary disease, other - Cardiomegaly. Unchanged from comparison xray. Impression: No acute disease Electronically Signed by: Ibis Rhodes DO Last Vital Signs Date Time Temp Pulse Resp B/P (MAP) Pulse Ox O2 Delivery O2 Flow Rate FiO2 09/02/18 17:29 21 09/02/18 17:25 74 18 94 Room Air 09/02/18 16:45 98.6 160/78 Status: improved Disposition: HOME, SELF-CARE Condition: Improved Patient Instructions: Asthma, Adult Ibis Rhodes DO Sep 02, 2018 17:51
[2018-09-02] MEDS ORDERED: ZITHROMAX250 MG ORAL (18:05)
[2018-09-02] MEDS ORDERED: ALBUTEROL SULF8.5 GM INH (18:05)
[2018-09-02 18:35] VITALS: BP 160/78
--- NOTE | 2018-09-03 12:38 | Diagnostic Imaging Report ---
Indication: Dyspnea Comparison: 05/30/2017 A single view chest radiograph was obtained. Findings: The heart is enlarged. The lungs are clear. Pulmonary vascularity is appropriate. The diaphragmatic contour is smooth and costophrenic angles are sharp. No pleural effusions are identified. The bones are unremarkable. Impression: No acute findings. Cardiomegaly. No change
== END 2018-09-02 18:38 | disposition home or self-care (01) ==
LOC: EMR 18:19
DX: J45.901 Unspecified asthma with (acute) exacerbation (principal); J06.9 Acute upper respiratory infection, unspecified; I10 Essential (primary) hypertension; Z86.73 Personal history of transient ischemic attack (TIA), and cerebral infarction without residual deficits
CPT/HCPCS: 71045; 94640; 94664; 99284

== ENCOUNTER 2019-12-15 17:00 | Inpatient (IN) | payer MEDICARE, MEDICAID ==
[~2019-12-15] VITALS: Ht 185.4 cm; Wt 107.5 kg
[~2019-12-15 17:00] MED LIST changes: +ALBUTEROL SULF8.5 GM INH; +ZITHROMAX250 MG ORAL
[2019-12-15 17:10] VITALS: BP 98/54
[2019-12-15 18:02] LABS: BASOPHILS % (AUTO) 1.3 % (0.0-2.0); EOSINOPHILS % (AUTO) 1.3 % (0.0-3.0); HEMATOCRIT 42.4 % (42.0-52.0); HEMOGLOBIN 13.6 G/DL (14.2-18.0); LYMPHOCYTES % (AUTO) 21.9 % (20.0-45.0); MEAN CORPUSCULAR VOLUME 95 FL (80-99); MONOCYTES % (AUTO) 8.5 % (1.0-10.0); PLATELET COUNT 159 K/UL (150-450); RED BLOOD COUNT 4.47 M/UL (4.70-6.10); RED CELL DISTRIBUTION WIDTH 15.1 % (11.6-14.8); WHITE BLOOD COUNT 7.7 K/UL (4.8-10.8)
[2019-12-15 18:10] LABS: ANION GAP 12 mmol/L (5-15); BLOOD UREA NITROGEN 34 mg/dL (7-18); CALCIUM 9.2 MG/DL (8.5-10.1); CARBON DIOXIDE 29 MMOL/L (21-32); CHLORIDE 98 MMOL/L (98-107); CREATININE 7.4 MG/DL (0.55-1.30); POTASSIUM 3.9 MMOL/L (3.5-5.1); SODIUM 139 MMOL/L (136-145)
--- NOTE | 2019-12-15 18:21 | Emergency Room Report ---
History of Present Illness General Chief Complaint: General Complaint Source: Patient Present Illness HPI 59-year-old male presents ED for evaluation. Brought in by EMS from home. [place] dizzy. Hypotensive. BP in 70s. History of end-stage renal disease. Got dialysis today. States he felt fine when he got discharged but shortly after started feeling lightheaded. Denies fevers or chills. Denies chest pain or shortness of breath. IV fluids started by EMS. No other aggravating relieving factors. Denies any other associated symptoms Allergies: Coded Allergies: No Known Allergies (Unverified , 03/13/17) Patient History Past Medical History: DM, HTN, asthma, CVA/TIA, renal disease, dialysis Past Surgical History: none Pertinent Family History: none Social History: Denies: smoking, alcohol use, drug use Immunizations: UTD Reviewed Nursing Documentation: PMH: Agreed; PSxH: Agreed Nursing Documentation-PMH Past Medical History: No History, Except For Hx Cardiac Problems: Yes Hx Hypertension: Yes Hx Asthma: Yes Hx Diabetes: Yes Hx Cancer: No Hx Gastrointestinal Problems: No Hx Dialysis: Yes Hx Neurological Problems: Yes Hx Cerebrovascular Accident: Yes Hx Neurologic Surgery: No Review of Systems All Other Systems: negative except mentioned in HPI Physical Exam Vital Signs Date Time Temp Pulse Resp B/P (MAP) Pulse Ox O2 Delivery O2 Flow Rate FiO2 12/15/19 16:55 97.5 86 16 77/48 (58) 97 Room Air Sp02 EP Interpretation: reviewed, normal General Appearance: no apparent distress, alert, GCS 15, non-toxic Head: normocephalic, atraumatic Eyes: bilateral eye normal inspection, bilateral eye PERRL ENT: hearing grossly normal, normal pharynx, no angioedema, normal voice Neck: full range of motion, supple/symm/no masses Respiratory: chest non-tender, lungs clear, normal breath sounds, speaking full sentences Cardiovascular #1: regular rate, rhythm, no edema Cardiovascular #2: 2+ carotid (R), 2+ carotid (L), 2+ radial (R), 2+ radial (L) , 2+ dorsalis pedis (R), 2+ dorsalis pedis (L) Gastrointestinal: normal bowel sounds, non tender, soft, non-distended, no guarding, no rebound Rectal: deferred Genitourinary: normal inspection, no CVA tenderness Musculoskeletal: back normal, normal range of motion, gait/station normal, non- tender Neurologic: alert, motor strength/tone normal, oriented x3, sensory intact, responsive, speech normal Psychiatric: judgement/insight normal, memory normal, mood/affect normal, no suicidal/homicidal ideation Reflexes: 3+ bicep (R), 3+ bicep (L), 3+ tricep (R), 3+ tricep (L), 3+ knee (R) , 3+ knee (L) Lymphatic: no adenopathy Medical Decision Making Diagnostic Impression: Primary Impression: ESRD (end stage renal disease) on dialysis Additional Impression: Hypotension Qualified Codes: I95.9 - Hypotension, unspecified ER Course Hospital Course 59-year-old male presents feeling dizzy status post dialysis. Hypotensive in field Differential diagnoses include: [place]/unstable angina, fluid overload, CHF exacerabation, hyperkalemia, uremia Clinical course Patient placed on stretcher. 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 BP improved on triage. After initial history and physical I ordered labs, EKG, chest x-ray, small fluid bolus labs reviewed- BUN/Cr elevated. electrolytes ok. no leukocytosis, hemoglobin/ hematocrit stable, lactic 2.3 EKG - NSR , no acute ischemic changes interpreted by me Chest [id number]. no fluid overload BP improved after small fluid bolus. Case discussed with Dr. Maza and he agreed to accept the patient to his service for further care and support I. I feel this is a highly complex case requiring extensive working including EKG/Rhythm strip, Xray/CT/US, Blood/urine lab work, repeat exams while in ED, and administration of strong opiates/narcotics for pain control, admission to hospital or close patient follow up. Diagnosis - ESRD on dialysis, hypotnsion admitted to telemetry in serious condition Labs Test 12/15/19 17:30 12/15/19 18:30 White Blood Count 7.7 K/UL (4.8-10.8) Red Blood Count 4.47 M/UL (4.70-6.10) Hemoglobin 13.6 G/DL (14.2-18.0) Hematocrit 42.4 % (42.0-52.0) Mean Corpuscular Volume 95 FL (80-99) Mean Corpuscular Hemoglobin 30.4 PG (27.0-31.0) Mean Corpuscular Hemoglobin Concent 32.0 G/DL (32.0-36.0) Red Cell Distribution Width 15.1 % (11.6-14.8) Platelet Count 159 K/UL (150-450) Mean Platelet Volume 7.0 FL (6.5-10.1) Neutrophils (%) (Auto) 67.0 % (45.0-75.0) Lymphocytes (%) (Auto) 21.9 % (20.0-45.0) Monocytes (%) (Auto) 8.5 % (1.0-10.0) Eosinophils (%) (Auto) 1.3 % (0.0-3.0) Basophils (%) (Auto) 1.3 % (0.0-2.0) Sodium Level 139 MMOL/L (136-145) Potassium Level 3.9 MMOL/L (3.5-5.1) Chloride Level 98 MMOL/L (98-107) Carbon Dioxide Level 29 MMOL/L (21-32) Anion Gap 12 mmol/L (5-15) Blood Urea Nitrogen 34 mg/dL (7-18) Creatinine 7.4 MG/DL (0.55-1.30) Estimat Glomerular Filtration Rate 9.2 mL/min (>60) Glucose Level 178 MG/DL (74-106) Lactic Acid Level 2.30 mmol/L (0.4-2.0) Calcium Level 9.2 MG/DL (8.5-10.1) Total Bilirubin 0.5 MG/DL (0.2-1.0) Aspartate Amino Transf (AST/SGOT) 19 U/L (15-37) Alanine Aminotransferase (ALT/SGPT) 17 U/L (12-78) Alkaline Phosphatase 81 U/L (46-116) Total Creatine Kinase 76 U/L (26-308) Creatine Kinase MB 3.4 NG/ML (0.0-3.6) Creatine Kinase MB Relative Index 4.4 Troponin I 0.008 ng/mL (0.000-0.056) Total Protein 8.3 G/DL (6.4-8.2) Albumin 4.1 G/DL (3.4-5.0) Globulin 4.2 g/dL Albumin/Globulin Ratio 1.0 (1.0-2.7) EKG Diagnostic Results Rate: normal Rhythm: NSR ST Segments: no acute changes ASA given to the pt in ED: No Rhythm Strip Diag. Results EP Interpretation: yes Rhythm: NSR, no PVC's, no ectopy Chest X-Ray Diagnostic Results Chest X-Ray Diagnostic Results : Chest X-Ray Ordered: Yes # of Views/Limited/Complete: 1 View Indication: Other EP Interpretation: Yes Interpretation: no consolidation, no effusion, no acute cardiopulmonary disease, other - cardiomegaly Impression: No acute disease Electronically Signed by: Electronically signed by Duy Vargas MD Last Vital Signs Date Time Temp Pulse Resp B/P (MAP) Pulse Ox O2 Delivery O2 Flow Rate FiO2 12/15/19 17:10 97.5 78 16 98/54 97 Room Air Status: improved Disposition: ADMITTED INPATIENT Condition: Serious Referrals: Henrique Lane MD (PCP) Duy Vargas MD Dec 15, 2019 18:21
[2019-12-15 18:24] LABS: ALANINE AMINOTRANSFERASE 17 U/L (12-78); ALBUMIN 4.1 G/DL (3.4-5.0); ALKALINE PHOSPHATASE 81 U/L (46-116); ASPARTATE AMINO TRANSFERASE 19 U/L (15-37); BILIRUBIN,TOTAL 0.5 MG/DL (0.2-1.0); CKMB 3.4 NG/ML (0.0-3.6); CREATINE KINASE 76 U/L (26-308)
[2019-12-15 19:04] VITALS: BP 118/2
--- NOTE | 2019-12-15 19:49 | Consultation ---
Consult Note Consult Note I was asked to evaluate the patient at the request of Dr. Varela for dialysis management. Was seen in the emergency room here at [facility]. He was seen in room 10 trauma Is awake but poor historian. Cannot give me the name of his dental specialist. He does not know where he is being dialyzed and how long have been on dialysis Is 59 years old. He lives at home. He got his dialysis today. [place] dizzy. Came into emergency room with paramedics. Blood pressure was 70 systolic in the field. No allergies. Has history significant for diabetes mellitus hypertension asthma CVA and TIA and end-stage renal disease on hemodialysis. On examination the patient has a fistula over the left upper arm. Temperature 97.5 pulse rate 86 respiratory rate 16 initial blood pressure was 77 /48 at this point the blood pressure is 105 systolic Head normocephalic neck is supple lungs no wheeze heart is mainly regular heart rate is 81 Abdomen is obese soft lower extremities no edema Patient moves all extremities Laboratory results reviewed Of importance hyperglycemia and high lactic level . 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
[2019-12-15] MEDS: Docusate 100mg cap ORAL SCH (21:00)
[2019-12-15] MEDS: Atorvastatin 20mg tab ORAL SCH (21:43)
[2019-12-15] MEDS: Tamsulosin 0.4mg cap ORAL SCH (21:43)
[2019-12-15] MEDS: Heparin 5000 units/ml inj SUBQ SCH (21:45)
[2019-12-15] MEDS: NovoLOG Insulin Flexpen SUBQ SCH (21:50)
[2019-12-15] MEDS ORDERED: Vancomycin 1.5gm/NS Premix IVPB ONE (22:00)
[2019-12-16] MEDS: NovoLOG Insulin Flexpen SUBQ SCH ×4 (06:12→21:31)
[2019-12-16 07:23] LABS: BASOPHILS % (AUTO) 0.5 % (0.0-2.0); EOSINOPHILS % (AUTO) 0.8 % (0.0-3.0); HEMATOCRIT 37.6 % (42.0-52.0); HEMOGLOBIN 12.9 G/DL (14.2-18.0); LYMPHOCYTES % (AUTO) 22.7 % (20.0-45.0); MEAN CORPUSCULAR VOLUME 93 FL (80-99); MONOCYTES % (AUTO) 9.6 % (1.0-10.0); NEUTROPHILS % (AUTO) 66.4 % (45.0-75.0); PLATELET COUNT 158 K/UL (150-450); RED BLOOD COUNT 4.05 M/UL (4.70-6.10); RED CELL DISTRIBUTION WIDTH 13.3 % (11.6-14.8); WHITE BLOOD COUNT 8.1 K/UL (4.8-10.8)
[2019-12-16 07:57] LABS: ALANINE AMINOTRANSFERASE 21 U/L (12-78); ALBUMIN 3.7 G/DL (3.4-5.0); ALBUMIN/GLOBULIN RATIO 0.9 (1.0-2.7); ALKALINE PHOSPHATASE 73 U/L (46-116); ANION GAP 17 mmol/L (5-15); ASPARTATE AMINO TRANSFERASE 14 U/L (15-37); BILIRUBIN,TOTAL 0.4 MG/DL (0.2-1.0); BLOOD UREA NITROGEN 47 mg/dL (7-18); CALCIUM 8.3 MG/DL (8.5-10.1); CARBON DIOXIDE 24 MMOL/L (21-32); CHLORIDE 99 MMOL/L (98-107); CHOLESTEROL 174 MG/DL (< 200); CREATINE KINASE 115 U/L (26-308); GAMMA GLUTAMYL TRANSPEPTIDASE 21 U/L (5-85); HDL CHOLESTEROL 36 MG/DL (40-60); SODIUM 140 MMOL/L (136-145); TRIGLYCERIDES 171 MG/DL (30-150)
[2019-12-16 08:00] VITALS: BP 127/77
--- NOTE | 2019-12-16 08:18 | Cardiac Electrophysiology PN ---
Subjective Subjective Well known to me. CHF, HTN, ESRD. [id number] Objective Last 24 Hour Vital Signs Date Time Temp Pulse Resp B/P (MAP) Pulse Ox O2 Delivery O2 Flow Rate FiO2 12/16/19 04:00 80 12/16/19 00:00 80 12/15/19 22:38 Room Air 12/15/19 20:18 78 12/15/19 19:55 98.4 87 20 108/56 98 Room Air 12/15/19 19:04 97.5 81 16 118/2 97 Room Air 12/15/19 17:10 97.5 78 16 98/54 97 Room Air 12/15/19 17:10 86 16 Room Air 12/15/19 16:55 97.5 86 16 77/48 (58) 97 Room Air Laboratory Tests Test 12/15/19 17:30 12/15/19 18:30 12/16/19 06:11 White Blood Count 7.7 K/UL (4.8-10.8) 8.1 K/UL (4.8-10.8) Red Blood Count 4.47 M/UL (4.70-6.10) L 4.05 M/UL (4.70-6.10) L Hemoglobin 13.6 G/DL (14.2-18.0) L 12.9 G/DL (14.2-18.0) L Hematocrit 42.4 % (42.0-52.0) 37.6 % (42.0-52.0) L Mean Corpuscular Volume 95 FL (80-99) 93 FL (80-99) Mean Corpuscular Hemoglobin 30.4 PG (27.0-31.0) 31.8 PG (27.0-31.0) H Mean Corpuscular Hemoglobin Concent 32.0 G/DL (32.0-36.0) 34.2 G/DL (32.0-36.0) Red Cell Distribution Width 15.1 % (11.6-14.8) H 13.3 % (11.6-14.8) Platelet Count 159 K/UL (150-450) 158 K/UL (150-450) Mean Platelet Volume 7.0 FL (6.5-10.1) 6.7 FL (6.5-10.1) Neutrophils (%) (Auto) 67.0 % (45.0-75.0) 66.4 % (45.0-75.0) Lymphocytes (%) (Auto) 21.9 % (20.0-45.0) 22.7 % (20.0-45.0) Monocytes (%) (Auto) 8.5 % (1.0-10.0) 9.6 % (1.0-10.0) Eosinophils (%) (Auto) 1.3 % (0.0-3.0) 0.8 % (0.0-3.0) Basophils (%) (Auto) 1.3 % (0.0-2.0) 0.5 % (0.0-2.0) Sodium Level 139 MMOL/L (136-145) 140 MMOL/L (136-145) Potassium Level 3.9 MMOL/L (3.5-5.1) 4.0 MMOL/L (3.5-5.1) Chloride Level 98 MMOL/L (98-107) 99 MMOL/L (98-107) Carbon Dioxide Level 29 MMOL/L (21-32) 24 MMOL/L (21-32) Anion Gap 12 mmol/L (5-15) 17 mmol/L (5-15) H Blood Urea Nitrogen 34 mg/dL (7-18) H 47 mg/dL (7-18) H Creatinine 7.4 MG/DL (0.55-1.30) H 9.0 MG/DL (0.55-1.30) H Estimat Glomerular Filtration Rate 9.2 mL/min (>60) 7.4 mL/min (>60) Glucose Level 178 MG/DL (74-106) H 165 MG/DL (74-106) H Lactic Acid Level 2.30 mmol/L (0.4-2.0) H 1.90 mmol/L (0.66-2.22) Calcium Level 9.2 MG/DL (8.5-10.1) 8.3 MG/DL (8.5-10.1) L Total Bilirubin 0.5 MG/DL (0.2-1.0) 0.4 MG/DL (0.2-1.0) Aspartate Amino Transf (AST/SGOT) 19 U/L (15-37) 14 U/L (15-37) L Alanine Aminotransferase (ALT/SGPT) 17 U/L (12-78) 21 U/L (12-78) Alkaline Phosphatase 81 U/L (46-116) 73 U/L (46-116) Total Creatine Kinase 76 U/L (26-308) 115 U/L (26-308) Creatine Kinase MB 3.4 NG/ML (0.0-3.6) Creatine Kinase MB Relative Index 4.4 Troponin I 0.008 ng/mL (0.000-0.056) 0.017 ng/mL (0.000-0.056) Pro-B-Type Natriuretic Peptide Pending Pending Total Protein 8.3 G/DL (6.4-8.2) H 7.6 G/DL (6.4-8.2) Albumin 4.1 G/DL (3.4-5.0) 3.7 G/DL (3.4-5.0) Globulin 4.2 g/dL 3.9 g/dL Albumin/Globulin Ratio 1.0 (1.0-2.7) 0.9 (1.0-2.7) L Hemoglobin A1c 8.6 % (4.3-6.0) H Uric Acid 5.2 MG/DL (2.6-7.2) Phosphorus Level 6.0 MG/DL (2.5-4.9) H Magnesium Level 2.3 MG/DL (1.8-2.4) Gamma Glutamyl Transpeptidase 21 U/L (5-85) C-Reactive Protein, Quantitative 0.6 mg/dL (0.00-0.90) Triglycerides Level 171 MG/DL (30-150) H Cholesterol Level 174 MG/DL (< 200) LDL Cholesterol 108 mg/dL (<100) H HDL Cholesterol 36 MG/DL (40-60) L Cholesterol/HDL Ratio 4.8 (3.3-4.4) H Vitamin B12 Level Pending Folate Pending Thyroid Stimulating Hormone (TSH) 1.372 uiU/mL (0.358-3.740) Microbiology Date/Time Source Procedure Growth Status 12/15/19 19:00 Nasal Nares - Final Complete 12/15/19 19:00 Nasal Nares - Final Complete 12/15/19 18:45 Rectum Received Joby Wiggins MD Dec 16, 2019 08:18
[2019-12-16] MEDS: Docusate 100mg cap ORAL SCH ×3 (09:15→17:08)
[2019-12-16] MEDS: Heparin 5000 units/ml inj SUBQ SCH ×2 (09:16→21:29)
--- NOTE | 2019-12-16 09:22 | Diagnostic Imaging Report ---
Indication: Shortness of breath Technique: One view of the chest Comparison: (25/04/2018 Findings: Lungs and pleural spaces are clear. Heart size is normal. Impression: No acute process
--- NOTE | 2019-12-16 09:45 | History and Physical ---
History of Present Illness General Date patient seen: Dec 16, 2019 Time patient seen: 06:30 Reason for Hospitalization: General Complaint Present Illness HPI 59 year old man with ESRD on HD, chronic systolic CHF, HTN, asthma, DM type 2, gout who presented to the ED last night with Brought in by EMS from home. [place] dizzy, noted to be dypotensive. SBP in 70s. Got HD earlier in the day. States he felt fine when he was done but shortly after started feeling lightheaded. Denies fevers or chills, dyspnea, chest pain or cough. IV fluids started by EMS with improvement in blood pressure. In noted to have elevated lactate which sunseqiently came down. Admitted for possible early sepsis. Spoke with cousin Min who is also patient's conservator. Family History: No premature CAD Social History: No alcohol or drugs Allergies: Coded Allergies: No Known Allergies (Unverified , 03/13/17) Medication History Scheduled Allopurinol* (Allopurinol*), 100 MG ORAL DAILY, (Reported) Amlodipine Besylate* (Amlodipine Besylate*), 10 MG ORAL DAILY, (Reported) Atorvastatin Calcium* (Atorvastatin Calcium*), 20 MG ORAL BEDTIME, (Reported) Azithromycin* (Zithromax*), 250 MG ORAL see instructions Carvedilol* (Carvedilol*), 25 MG ORAL EVERY 12 HOURS, (Reported) Furosemide* (Lasix*), 20 MG ORAL DAILY, (Reported) Glipizide* (Glipizide*), 5 MG ORAL BIDAC, (Reported) Hydralazine Hcl* (Hydralazine Hcl*), 50 MG ORAL BID, (Reported) Insulin Glargine (Lantus), Unknown Dose SUBQ BEDTIME, (Reported) Isosorbide Dinitrate (Isosorbide Dinitrate*), 10 MG ORAL TID, (Reported) Tamsulosin Hcl (Tamsulosin Hcl*), 0.4 MG ORAL BEDTIME, (Reported) Scheduled PRN Albuterol Sulfate* (Albuterol Sulfate Mdi*), 2 PUFF INH Q4H PRN for cough/ wheezing Patient History Healthcare decision maker Min Campbell Resuscitation status Full Code Advanced Directive on File Review of Systems Constitutional: Denies: chills, sweats, fever, malaise Eye: Denies: eye pain, blurred vision ENT: Denies: ear pain Respiratory: Denies: cough, orthopnea, shortness of breath Cardiovascular: Denies: chest pain, edema, palpitations Gastrointestinal: Denies: abdominal pain, constipation, diarrhea Musculoskeletal: Denies: back pain, gout Skin: Denies: rash Psychiatric: Denies: anxiety Neurological: Reports: dizziness; Denies: headache Endocrine: Denies: excessive sweating Physical Exam General Appearance: no apparent distress, alert HEENT: atraumatic, anicteric Neck: normal alignment, supple Respiratory/Chest: lungs clear, normal breath sounds, no respiratory distress Cardiovascular/Chest: normal rate, regular rhythm Abdomen: non tender, soft Extremities: non-tender, normal inspection 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 II-XII grossly normal, no motor/sensory deficits Last 24 Hour Vital Signs Date Time Temp Pulse Resp B/P (MAP) Pulse Ox O2 Delivery O2 Flow Rate FiO2 12/16/19 08:00 97.7 82 17 127/77 (94) 96 12/16/19 04:00 80 12/16/19 00:00 80 12/15/19 22:38 Room Air 12/15/19 20:18 78 12/15/19 19:55 98.4 87 20 108/56 98 Room Air 12/15/19 19:04 97.5 81 16 118/2 97 Room Air 12/15/19 17:10 97.5 78 16 98/54 97 Room Air 12/15/19 17:10 86 16 Room Air 12/15/19 16:55 97.5 86 16 77/48 (58) 97 Room Air Intake and Output 12/15/19 12/16/19 19:00 07:00 # Voids 1 3 Laboratory Tests Test 12/15/19 17:30 12/15/19 18:30 12/16/19 06:11 White Blood Count 7.7 K/UL (4.8-10.8) 8.1 K/UL (4.8-10.8) Red Blood Count 4.47 M/UL (4.70-6.10) L 4.05 M/UL (4.70-6.10) L Hemoglobin 13.6 G/DL (14.2-18.0) L 12.9 G/DL (14.2-18.0) L Hematocrit 42.4 % (42.0-52.0) 37.6 % (42.0-52.0) L Mean Corpuscular Volume 95 FL (80-99) 93 FL (80-99) Mean Corpuscular Hemoglobin 30.4 PG (27.0-31.0) 31.8 PG (27.0-31.0) H Mean Corpuscular Hemoglobin Concent 32.0 G/DL (32.0-36.0) 34.2 G/DL (32.0-36.0) Red Cell Distribution Width 15.1 % (11.6-14.8) H 13.3 % (11.6-14.8) Platelet Count 159 K/UL (150-450) 158 K/UL (150-450) Mean Platelet Volume 7.0 FL (6.5-10.1) 6.7 FL (6.5-10.1) Neutrophils (%) (Auto) 67.0 % (45.0-75.0) 66.4 % (45.0-75.0) Lymphocytes (%) (Auto) 21.9 % (20.0-45.0) 22.7 % (20.0-45.0) Monocytes (%) (Auto) 8.5 % (1.0-10.0) 9.6 % (1.0-10.0) Eosinophils (%) (Auto) 1.3 % (0.0-3.0) 0.8 % (0.0-3.0) Basophils (%) (Auto) 1.3 % (0.0-2.0) 0.5 % (0.0-2.0) Sodium Level 139 MMOL/L (136-145) 140 MMOL/L (136-145) Potassium Level 3.9 MMOL/L (3.5-5.1) 4.0 MMOL/L (3.5-5.1) Chloride Level 98 MMOL/L (98-107) 99 MMOL/L (98-107) Carbon Dioxide Level 29 MMOL/L (21-32) 24 MMOL/L (21-32) Anion Gap 12 mmol/L (5-15) 17 mmol/L (5-15) H Blood Urea Nitrogen 34 mg/dL (7-18) H 47 mg/dL (7-18) H Creatinine 7.4 MG/DL (0.55-1.30) H 9.0 MG/DL (0.55-1.30) H Estimat Glomerular Filtration Rate 9.2 mL/min (>60) 7.4 mL/min (>60) Glucose Level 178 MG/DL (74-106) H 165 MG/DL (74-106) H Lactic Acid Level 2.30 mmol/L (0.4-2.0) H 1.90 mmol/L (0.66-2.22) Calcium Level 9.2 MG/DL (8.5-10.1) 8.3 MG/DL (8.5-10.1) L Total Bilirubin 0.5 MG/DL (0.2-1.0) 0.4 MG/DL (0.2-1.0) Aspartate Amino Transf (AST/SGOT) 19 U/L (15-37) 14 U/L (15-37) L Alanine Aminotransferase (ALT/SGPT) 17 U/L (12-78) 21 U/L (12-78) Alkaline Phosphatase 81 U/L (46-116) 73 U/L (46-116) Total Creatine Kinase 76 U/L (26-308) 115 U/L (26-308) Creatine Kinase MB 3.4 NG/ML (0.0-3.6) Creatine Kinase MB Relative Index 4.4 Troponin I 0.008 ng/mL (0.000-0.056) 0.017 ng/mL (0.000-0.056) Pro-B-Type Natriuretic Peptide Pending Pending Total Protein 8.3 G/DL (6.4-8.2) H 7.6 G/DL (6.4-8.2) Albumin 4.1 G/DL (3.4-5.0) 3.7 G/DL (3.4-5.0) Globulin 4.2 g/dL 3.9 g/dL Albumin/Globulin Ratio 1.0 (1.0-2.7) 0.9 (1.0-2.7) L Hemoglobin A1c 8.6 % (4.3-6.0) H Uric Acid 5.2 MG/DL (2.6-7.2) Phosphorus Level 6.0 MG/DL (2.5-4.9) H Magnesium Level 2.3 MG/DL (1.8-2.4) Gamma Glutamyl Transpeptidase 21 U/L (5-85) C-Reactive Protein, Quantitative 0.6 mg/dL (0.00-0.90) Triglycerides Level 171 MG/DL (30-150) H Cholesterol Level 174 MG/DL (< 200) LDL Cholesterol 108 mg/dL (<100) H HDL Cholesterol 36 MG/DL (40-60) L Cholesterol/HDL Ratio 4.8 (3.3-4.4) H Vitamin B12 Level 626 PG/ML (193-986) Folate 7.2 NG/ML (8.6-58.9) L Thyroid Stimulating Hormone (TSH) 1.372 uiU/mL (0.358-3.740) Microbiology Date/Time Source Procedure Growth Status 12/15/19 19:00 Nasal Nares - Final Complete 12/15/19 19:00 Nasal Nares - Final Complete 12/15/19 18:45 Rectum Received Height (Feet): 6 Height (Inches): 1.00 Weight (Pounds): 230 Medications Current Medications Medications (Trade) Dose Ordered Sig/Emmy Route PRN Reason Start Time Stop Time Status Last Admin Dose Admin Acetaminophen (Tylenol) 650 mg Q4H PRN ORAL Mild Pain (Pain Scale 1-3) 12/15/19 19:00 01/14/20 18:59 Atorvastatin Calcium (Lipitor) 20 mg BEDTIME ORAL 12/15/19 21:00 01/14/20 20:59 12/15/19 21:43 Dextrose (Dextrose 50%) 25 ml Q30M PRN IV Hypoglycemia 12/15/19 19:00 01/14/20 18:59 Dextrose (Dextrose 50%) 50 ml Q30M PRN IV Hypoglycemia 12/15/19 19:00 01/14/20 18:59 Docusate Sodium (Colace) 100 mg EVERY 12 HOURS ORAL 12/15/19 21:00 01/14/20 20:59 12/16/19 09:15 Heparin Sodium (Porcine) (Heparin 5000 units/ml) 5,000 units EVERY 12 HOURS SUBQ 12/15/19 21:00 01/29/20 20:59 12/16/19 09:16 Insulin Aspart (NovoLOG) BEFORE MEALS AND HS SUBQ 12/15/19 21:00 01/14/20 20:59 12/16/19 06:12 Ondansetron HCl (Zofran) 4 mg Q6H PRN IVP Nausea & Vomiting 12/15/19 19:00 01/14/20 18:59 Pantoprazole (Protonix) 40 mg DAILY ORAL 12/16/19 09:00 01/15/20 08:59 12/16/19 09:15 Sodium Chloride 1,000 ml @ 50 mls/hr Q20H IV 12/15/19 19:45 01/14/20 19:44 12/15/19 21:41 Tamsulosin HCl (Flomax) 0.4 mg BEDTIME ORAL 12/15/19 21:00 01/14/20 20:59 12/15/19 21:43 Vancomycin HCl (Vanco rx to dose) 1 ea DAILY PRN MISC Per rx protocol 12/15/19 19:00 01/14/20 18:59 Assessment/Plan Assessment/Plan: 59 year old man with ESRD on HD, HTN, asthma, DM type 2, gout who presented with hypotension and dizziness after HD yesterday, noted to have elevated lactate in ED. #Hypotension #Elevated lactate #Possible early sepsis, bacteremia #ESRD on HD -admit to medical service -started on vancomycin, monitor drug levels -follow up blood cultures -Nephrology consulted for HD orders -hold anti-hypertensive meds for now and monitor pressures closely #DM type 2 -ISS #Chronic systolic CHF #history of HTN -hold anti-hypertensives for now -repeat TTE -monitor BPs -Cardiology consult #history of Gout -allopurinol on hold I spent 70 minutes on this patient's case, and >50% was dedicated to counseling and/or care coordination. I spent an additional 35 minutes on review of medical records including prior medical records, consult notes, progress notes, procedures, imaging, labs, hemodynamics, and other clinical documentation. Ky Bravo MD Dec 16, 2019 09:45
[2019-12-16 12:00] VITALS: BP 127/75
--- NOTE | 2019-12-16 12:42 | Nephrology Progress Note ---
Assessment/Plan Problem List: (1) ESRD (end stage renal disease) on dialysis (2) Hypotensive episode (3) Cardiomyopathy (4) Diabetes Assessment Hypotension on presentation to emergency room Most likely secondary to over ultrafiltration during dialysis Possible early sepsis due to high lactate level End-stage renal disease on hemodialysis Saturday History of CHF with previous ejection fraction of 40% History of hypertension History of COPD History of previous pneumonia History of deep vein thrombosis History of diabetes mellitus Possible Down syndrome Plan Cultures Fluid challenge Antibiotics monitoring analyst 2 D echocardiogram Inflammatory markers Dialysis as needed Subjective ROS Limited/Unobtainable: No Constitutional: Reports: other - Feels better Objective Objective Last 24 Hour Vital Signs Date Time Temp Pulse Resp B/P (MAP) Pulse Ox O2 Delivery O2 Flow Rate FiO2 12/16/19 12:00 97.7 78 19 127/75 (92) 98 12/16/19 09:00 Room Air 12/16/19 08:00 97.7 82 17 127/77 (94) 96 12/16/19 08:00 76 12/16/19 04:00 80 12/16/19 00:00 80 12/15/19 22:38 Room Air 12/15/19 20:18 78 12/15/19 19:55 98.4 87 20 108/56 98 Room Air 12/15/19 19:04 97.5 81 16 118/2 97 Room Air 12/15/19 17:10 97.5 78 16 98/54 97 Room Air 12/15/19 17:10 86 16 Room Air 12/15/19 16:55 97.5 86 16 77/48 (58) 97 Room Air Intake and Output 12/15/19 12/16/19 19:00 07:00 # Voids 1 3 Current Medications Medications (Trade) Dose Ordered Sig/Emmy Route PRN Reason Start Time Stop Time Status Last Admin Dose Admin Acetaminophen (Tylenol) 650 mg Q4H PRN ORAL Mild Pain (Pain Scale 1-3) 12/15/19 19:00 01/14/20 18:59 Atorvastatin Calcium (Lipitor) 20 mg BEDTIME ORAL 12/15/19 21:00 01/14/20 20:59 12/15/19 21:43 Dextrose (Dextrose 50%) 25 ml Q30M PRN IV Hypoglycemia 12/15/19 19:00 01/14/20 18:59 Dextrose (Dextrose 50%) 50 ml Q30M PRN IV Hypoglycemia 12/15/19 19:00 01/14/20 18:59 Docusate Sodium (Colace) 100 mg EVERY 12 HOURS ORAL 12/15/19 21:00 01/14/20 20:59 12/16/19 09:15 Folic Acid (Folate) 1 mg DAILY ORAL 12/16/19 10:30 01/15/20 10:29 12/16/19 11:16 Heparin Sodium (Porcine) (Heparin 5000 units/ml) 5,000 units EVERY 12 HOURS SUBQ 12/15/19 21:00 01/29/20 20:59 12/16/19 09:16 Insulin Aspart (NovoLOG) BEFORE MEALS AND HS SUBQ 12/15/19 21:00 01/14/20 20:59 12/16/19 11:17 Ondansetron HCl (Zofran) 4 mg Q6H PRN IVP Nausea & Vomiting 12/15/19 19:00 01/14/20 18:59 Pantoprazole (Protonix) 40 mg DAILY ORAL 12/16/19 09:00 01/15/20 08:59 12/16/19 09:15 Sevelamer Carbonate (Renvela) 800 mg THREE TIMES A DAY ORAL 12/16/19 13:00 01/15/20 12:59 Sodium Chloride 1,000 ml @ 50 mls/hr Q20H IV 12/15/19 19:45 01/14/20 19:44 12/15/19 21:41 Tamsulosin HCl (Flomax) 0.4 mg BEDTIME ORAL 12/15/19 21:00 01/14/20 20:59 12/15/19 21:43 Vancomycin HCl (Vanco rx to dose) 1 ea DAILY PRN MISC Per rx protocol 12/15/19 19:00 01/14/20 18:59 Laboratory Tests 12/15/19 17:30: White Blood Count 7.7, Red Blood Count 4.47L, Hemoglobin 13.6L, Hematocrit 42.4 , Mean Corpuscular Volume 95, Mean Corpuscular Hemoglobin 30.4, Mean Corpuscular Hemoglobin Concent 32.0, Red Cell Distribution Width 15.1H, Platelet Count 159, Mean Platelet Volume 7.0, Neutrophils (%) (Auto) 67.0, Lymphocytes (%) (Auto) 21.9, Monocytes (%) (Auto) 8.5, Eosinophils (%) (Auto) 1.3, Basophils (%) (Auto) 1.3, Sodium Level 139, Potassium Level 3.9, Chloride Level 98, Carbon Dioxide Level 29, Anion Gap 12, Blood Urea Nitrogen 34H, Creatinine 7.4H, Estimat Glomerular Filtration Rate 9.2, Glucose Level 178H, Lactic Acid Level 2.30H, Calcium Level 9.2, Total Bilirubin 0.5, Aspartate Amino Transf (AST/SGOT) 19, Alanine Aminotransferase (ALT/SGPT) 17, Alkaline Phosphatase 81, Total Creatine Kinase 76, Creatine Kinase MB 3.4, Creatine Kinase MB Relative Index 4.4, Troponin I 0.008, Pro-B-Type Natriuretic Peptide [ Pending], Total Protein 8.3H, Albumin 4.1, Globulin 4.2, Albumin/Globulin Ratio 1.0 12/15/19 18:30: Lactic Acid Level 1.90 12/16/19 06:11: White Blood Count 8.1, Red Blood Count 4.05L, Hemoglobin 12.9L, Hematocrit 37.6L , Mean Corpuscular Volume 93, Mean Corpuscular Hemoglobin 31.8H, Mean Corpuscular Hemoglobin Concent 34.2, Red Cell Distribution Width 13.3, Platelet Count 158, Mean Platelet Volume 6.7, Neutrophils (%) (Auto) 66.4, Lymphocytes (% ) (Auto) 22.7, Monocytes (%) (Auto) 9.6, Eosinophils (%) (Auto) 0.8, Basophils ( %) (Auto) 0.5, Sodium Level 140, Potassium Level 4.0, Chloride Level 99, Carbon Dioxide Level 24, Anion Gap 17H, Blood Urea Nitrogen 47H, Creatinine 9.0H, Estimat Glomerular Filtration Rate 7.4, Glucose Level 165H, Calcium Level 8.3L, Total Bilirubin 0.4, Aspartate Amino Transf (AST/SGOT) 14L, Alanine Aminotransferase (ALT/SGPT) 21, Alkaline Phosphatase 73, Total Creatine Kinase 115, Troponin I 0.017, Pro-B-Type Natriuretic Peptide [Pending], Total Protein 7.6, Albumin 3.7, Globulin 3.9, Albumin/Globulin Ratio 0.9L, Hemoglobin A1c 8.6H , Uric Acid 5.2, Phosphorus Level 6.0H, Magnesium Level 2.3, Gamma Glutamyl Transpeptidase 21, C-Reactive Protein, Quantitative 0.6, Triglycerides Level 171H, Cholesterol Level 174, LDL Cholesterol 108H, HDL Cholesterol 36L, Cholesterol/HDL Ratio 4.8H, Vitamin B12 Level 626, Folate 7.2L, Thyroid Stimulating Hormone (TSH) 1.372 Height (Feet): 6 Height (Inches): 1.00 Weight (Pounds): 230 General Appearance: no apparent distress Cardiovascular: normal rate Respiratory/Chest: lungs clear Abdomen: soft Tye Zee MD Dec 16, 2019 12:42
--- NOTE | 2019-12-16 13:15 | Consultation ---
DATE OF CONSULTATION: 12/16/2019 CARDIOLOGY CONSULTATION CONSULTING PHYSICIAN: Joby Wiggins M.D. REFERRING PHYSICIAN: Amaris Rain M.D. REASON FOR CONSULTATION: Management of hypotension in the patient with hypertension and congestive heart failure. HISTORY OF PRESENT ILLNESS: The patient is a 59-year-old gentleman with history of hypertension, diabetes, and congestive heart failure, EF of around 40% since 2017 as well as end-stage renal disease, on hemodialysis, who got dialysis yesterday and then shortly after that he felt lightheaded and dizzy. The patient was hypotensive with blood pressure in the 70s and received IV fluids by paramedics. The patient was then admitted and a Cardiology consultation was obtained for further evaluation. REVIEW OF SYSTEMS: Review of systems was negative other than what was mentioned in the history of present illness. PAST MEDICAL HISTORY: 1. Hypertension. 2. Diabetes. 3. Congestive heart failure. 4. Asthma. 5. CVA. 6. End-stage renal disease on hemodialysis. PHYSICAL EXAMINATION: VITAL SIGNS: Blood pressure of 108/56, pulse 57, respirations 18, and temperature 98.4. HEAD AND NECK: Shows mild JVD. LUNGS: Decreased breath sounds. CARDIOVASCULAR: Shows regular S1 and S2 with no gallop. ABDOMEN: Soft. EXTREMITIES: 1+ pitting edema. LABORATORY DATA: Labs show white count of 8.1, hemoglobin of 12.9, hematocrit 37.6, and platelet count is 158. Sodium 140, potassium 4.0, BUN of 47, creatinine of 9, and glucose of 165. Troponin is negative x2. ASSESSMENT AND PLAN: 1. Hypotension. The patient was ruled out for myocardial infarction. The EKG however shows inferolateral ischemia. We will get an echocardiogram for ejection fraction and wall motion abnormality. 2. Congestive heart failure. EF was 40% in 2017. Repeat echocardiogram. We will hold off on heart failure medications except for dialysis in view of recent hypotension, blood pressure in the 70s and currently is improved. 3. History of hypertension. Keep off antihypertensive agents at this time. 4. Hyperlipidemia, on Lipitor. 5. End-stage renal disease, on hemodialysis. Thank you very much Dr. Rain for allowing me to participate in the care of this patient. Please do not hesitate to contact me for any questions regarding my evaluation. Joby Wiggins M.D. DR: JAZZY JOB#: [id number] CC:
[2019-12-16 16:00] VITALS: BP 125/76
[2019-12-16 20:00] VITALS: BP 113/79
[2019-12-16] MEDS ORDERED: CALCIUM ACETAT667 M1 PO (20:54)
[2019-12-16] MEDS ORDERED: BAYER ADVANCED500 MG ORAL (20:54)
[2019-12-16] MEDS: Atorvastatin 20mg tab ORAL SCH (21:29)
[2019-12-16] MEDS: Tamsulosin 0.4mg cap ORAL SCH (21:29)
[2019-12-17] VITALS (8 sets, daily range): BP systolic 104–134; BP diastolic 72–80
[2019-12-17] MEDS: NovoLOG Insulin Flexpen SUBQ SCH ×4 (05:48→22:00)
[2019-12-17] MEDS: Docusate 100mg cap ORAL SCH ×3 (08:22→17:11)
[2019-12-17] MEDS: Heparin 5000 units/ml inj SUBQ SCH ×2 (08:23→20:50)
--- NOTE | 2019-12-17 13:55 | General Progress Note ---
Assessment/Plan Assessment/Plan: 59 year old man with ESRD on HD, HTN, asthma, DM type 2, gout who presented with hypotension and dizziness after HD yesterday, noted to have elevated lactate in ED. #Hypotension #Elevated lactate #Possible early sepsis, bacteremia #ESRD on HD -continue inpatient medical care -cont vanco with HD -follow up final blood cultures -Nephrology following -cont to hold anti-hypertensives and monitor BP #DM type 2 -ISS #Chronic systolic CHF #history of HTN -hold anti-hypertensives for now -monitor BPs -Cardiology following #history of Gout -allopurinol on hold I spent 35 minutes on this patient's case, and >50% was dedicated to counseling and/or care coordination. Subjective Date patient seen: Dec 17, 2019 Time patient seen: 09:37 ROS Limited/Unobtainable: No Constitutional: Denies: chills, fever Cardiovascular: Denies: chest pain Respiratory: Denies: cough, shortness of breath Gastrointestinal/Abdominal: Denies: abdominal pain Neurologic/Psychiatric: Denies: headache, weakness Allergies: Coded Allergies: No Known Allergies (Unverified , 03/13/17) Subjective Follow up for hypotension dueing HD Feels well today Prelim blood cultures negative Tolerating vancomycin Objective Last 24 Hour Vital Signs Date Time Temp Pulse Resp B/P (MAP) Pulse Ox O2 Delivery O2 Flow Rate FiO2 12/17/19 09:00 Room Air 12/17/19 08:00 77 12/17/19 08:00 97.5 76 18 104/78 (87) 98 12/17/19 06:25 97.7 79 18 131/80 (97) 97 12/17/19 04:00 70 12/17/19 00:00 70 12/17/19 00:00 97.4 74 134/79 (97) 12/16/19 21:00 Room Air 12/16/19 20:00 80 12/16/19 20:00 98.6 74 18 113/79 (90) 97 12/16/19 16:00 97.9 77 19 125/76 (92) 97 12/16/19 16:00 77 Intake and Output 12/16/19 12/17/19 19:00 07:00 Intake Total 1090 ml 360 ml Balance 1090 ml 360 ml Intake Oral 1090 ml 360 ml # Voids 3 3 Laboratory Tests 12/17/19 06:00: Troponin I 0.017, Random Vancomycin Level 17.2, Hepatitis B Surface Antigen [ Pending] Height (Feet): 6 Height (Inches): 1.00 Weight (Pounds): 239 General Appearance: no apparent distress, alert Neck: normal alignment, supple Cardiovascular: normal rate, regular rhythm Respiratory/Chest: lungs clear, normal breath sounds, no respiratory distress Abdomen: non tender, soft Ky Bravo MD Dec 17, 2019 13:55
--- NOTE | 2019-12-17 15:16 | Nephrology Progress Note ---
Assessment/Plan Problem List: (1) ESRD (end stage renal disease) on dialysis (2) Hypotensive episode (3) Cardiomyopathy (4) Diabetes Assessment Hypotension on presentation to emergency room Most likely secondary to over ultrafiltration during dialysis Possible early sepsis due to high lactate level End-stage renal disease on hemodialysis Saturday History of CHF with previous ejection fraction of 40% History of hypertension History of COPD History of previous pneumonia History of deep vein thrombosis History of diabetes mellitus Possible Down syndrome Plan Cultures Fluid challenge Antibiotics group marketing vp 2 D echocardiogram Inflammatory markers Dialysis scheduled today December 16 not done yet Subjective ROS Limited/Unobtainable: No Constitutional: Reports: malaise, weakness Objective Objective Last 24 Hour Vital Signs Date Time Temp Pulse Resp B/P (MAP) Pulse Ox O2 Delivery O2 Flow Rate FiO2 12/17/19 12:00 97.2 80 18 126/80 (95) 97 12/17/19 12:00 74 12/17/19 09:00 Room Air 12/17/19 08:00 77 12/17/19 08:00 97.5 76 18 104/78 (87) 98 12/17/19 06:25 97.7 79 18 131/80 (97) 97 12/17/19 04:00 70 12/17/19 00:00 70 12/17/19 00:00 97.4 74 134/79 (97) 12/16/19 21:00 Room Air 12/16/19 20:00 80 12/16/19 20:00 98.6 74 18 113/79 (90) 97 12/16/19 16:00 97.9 77 19 125/76 (92) 97 12/16/19 16:00 77 Intake and Output 12/16/19 12/17/19 19:00 07:00 Intake Total 1090 ml 360 ml Balance 1090 ml 360 ml Intake Oral 1090 ml 360 ml # Voids 3 3 Laboratory Tests 12/17/19 06:00: Troponin I 0.017, Random Vancomycin Level 17.2, Hepatitis B Surface Antigen [ Pending] Height (Feet): 6 Height (Inches): 1.00 Weight (Pounds): 239 General Appearance: no apparent distress Objective No change Tye Zee MD Dec 17, 2019 15:16
--- NOTE | 2019-12-17 15:33 | Cardiac Electrophysiology PN ---
Assessment/Plan Assessment/Plan 1. Hypotension. The patient was ruled out for myocardial infarction. The EKG however shows inferolateral ischemia. Echocardiogram Nl EF 2. Congestive heart failure. EF was 40% in 2017. Repeat echocardiogram showed Nl EF 3. History of hypertension. Keep off antihypertensive agents at this time. 4. Hyperlipidemia, on Lipitor. 5. End-stage renal disease, on hemodialysis. BRITT RN Subjective Subjective Feeling better. No CP. Awaiting for HD today and hepatitis panel Objective Last 24 Hour Vital Signs Date Time Temp Pulse Resp B/P (MAP) Pulse Ox O2 Delivery O2 Flow Rate FiO2 12/17/19 12:00 97.2 80 18 126/80 (95) 97 12/17/19 12:00 74 12/17/19 09:00 Room Air 12/17/19 08:00 77 12/17/19 08:00 97.5 76 18 104/78 (87) 98 12/17/19 06:25 97.7 79 18 131/80 (97) 97 12/17/19 04:00 70 12/17/19 00:00 70 12/17/19 00:00 97.4 74 134/79 (97) 12/16/19 21:00 Room Air 12/16/19 20:00 80 12/16/19 20:00 98.6 74 18 113/79 (90) 97 12/16/19 16:00 97.9 77 19 125/76 (92) 97 12/16/19 16:00 77 Intake and Output 12/16/19 12/17/19 19:00 07:00 Intake Total 1090 ml 360 ml Balance 1090 ml 360 ml Intake Oral 1090 ml 360 ml # Voids 3 3 Laboratory Tests Test 12/17/19 06:00 Troponin I 0.017 ng/mL (0.000-0.056) Random Vancomycin Level 17.2 ug/mL Hepatitis B Surface Antigen Pending Microbiology Date/Time Source Procedure Growth Status 12/15/19 17:30 Blood Blood Culture - Preliminary NO GROWTH AFTER 24 HOURS Resulted 12/15/19 17:10 Blood Blood Culture - Preliminary NO GROWTH AFTER 24 HOURS Resulted 12/15/19 19:00 Nasal Nares - Final Complete 12/15/19 19:00 Nasal Nares - Final Complete 12/15/19 18:45 Rectum Received Objective HEAD AND NECK: Shows mild JVD. LUNGS: Decreased breath sounds. CARDIOVASCULAR: Shows regular S1 and S2 with no gallop. ABDOMEN: Soft. EXTREMITIES: 1+ pitting edema. Joby Wiggins MD Dec 17, 2019 15:33
[2019-12-17] MEDS ORDERED: Vancomycin 750mg/D5W 275ml IVPB SCH ×2 (20:00)
[2019-12-17] MEDS: Tamsulosin 0.4mg cap ORAL SCH (20:43)
[2019-12-17] MEDS: Atorvastatin 20mg tab ORAL SCH (20:43)
[2019-12-18] VITALS: BP 130/70
[2019-12-18 04:00] VITALS: BP 149/78
[2019-12-18] MEDS: NovoLOG Insulin Flexpen SUBQ SCH (06:08)
[2019-12-18 08:00] VITALS: BP 123/75
--- NOTE | 2019-12-18 08:16 | Discharge Summary ---
Discharge Summary Hospital Course Date of Admission Dec 15, 2019 at 18:18 Date of Discharge 12/18/19 Admitting Diagnosis hypotension/dizziness/ESRD MARIA ELENA Vargas is a 59 year old male who was admitted on Dec 15, 2019 at 18:18 for Hypotension/Dizziness/End Stage Renal Disease Consultations Renal Procedures None Hospital Course 59 year old man with ESRD on HD, HTN, asthma, DM type 2, gout who presented with hypotension and dizziness after HD yesterday, noted to have elevated lactate in ED. Patient admitted to the medical service for possible early sepsis , started on vancomycin with HD. Blood cultures without growth and hypotension resolved. Patient toleratd HD well and he will be discharged home with home health off antibiotics. #Hypotension #Elevated lactate #Possible early sepsis, bacteremia #ESRD on HD #DM type 2 #Chronic systolic CHF #history of HTN #history of Gout #Obesity (POA) I spent 35 minutes on preparing this discharge including time spent coordinating with RN, case management, consulting MDs Discharge Medications Continued Medications: Allopurinol* (Allopurinol*) 100 Mg Tablet 100 MG ORAL DAILY, TAB Amlodipine Besylate* (Amlodipine Besylate*) 10 Mg Tablet 10 MG ORAL DAILY, TAB Aspirin (Karen Advanced) 500 Mg Tablet Unknown Dose ORAL DAILY for heart health, TAB Calcium Acetate (Calcium Acetate) 667 Mg Capsule Unknown Dose PO DAILY for supplement, CAP Carvedilol* (Carvedilol*) 25 Mg Tablet 25 MG ORAL EVERY 12 HOURS, TAB Furosemide* (Lasix*) 20 Mg Tablet 20 MG ORAL DAILY, TAB Insulin Glargine (Lantus) 100 Unit/1 Ml Insuln.pen Unknown Dose SUBQ BEDTIME PRN for Hyperglycemia, #1 EA 0 Refills Isosorbide Dinitrate (Isosorbide Dinitrate*) 5 Mg Tablet 10 MG ORAL TID, #30 TAB 0 Refills Discharge Condition Upon Discharge: improving Discharge Vital Signs Last Vital Signs Date Time Temp Pulse Resp B/P (MAP) Pulse Ox O2 Delivery O2 Flow Rate FiO2 12/18/19 04:00 97.6 75 16 149/78 (101) 97 12/17/19 21:00 Room Air Discharge Disposition Patient was discharged to home with home health Discharge Diagnoses: (1) Hypotension (2) Congestive heart failure (3) ESRD (end stage renal disease) on dialysis (4) Diabetes Ky Bravo MD Dec 18, 2019 08:16
--- NOTE | 2019-12-18 08:41 | Nephrology Progress Note ---
Assessment/Plan Problem List: (1) ESRD (end stage renal disease) on dialysis (2) Hypotensive episode (3) Cardiomyopathy (4) Diabetes Assessment Hypotension on presentation to emergency room Most likely secondary to over ultrafiltration during dialysis Possible early sepsis due to high lactate level End-stage renal disease on hemodialysis Saturday History of CHF with previous ejection fraction of 40% History of hypertension History of COPD History of previous pneumonia History of deep vein thrombosis History of diabetes mellitus Possible Down syndrome Plan Cultures negative Fluid challenge when Antibiotics no further need site monitor 2 D echocardiogram ejection fraction 55 to 60% Inflammatory markers minimal Last dialysis December 16 Next dialysis December 18 Stable for discharge from renal standpoint of view Subjective ROS Limited/Unobtainable: No Constitutional: Reports: other - Feels much better Objective Objective Last 24 Hour Vital Signs Date Time Temp Pulse Resp B/P (MAP) Pulse Ox O2 Delivery O2 Flow Rate FiO2 12/18/19 04:00 97.6 75 16 149/78 (101) 97 12/18/19 04:00 75 12/18/19 00:00 78 12/18/19 00:00 97.0 84 16 130/70 (90) 97 12/17/19 21:00 96.8 80 15 133/72 (92) 97 12/17/19 21:00 Room Air 12/17/19 20:00 80 12/17/19 16:00 74 12/17/19 16:00 97.0 76 19 131/76 (94) 98 12/17/19 12:00 97.2 80 18 126/80 (95) 97 12/17/19 12:00 74 12/17/19 09:00 Room Air Intake and Output 12/17/19 12/18/19 19:00 07:00 Intake Total 240 ml 1120 ml Output Total 1000 ml Balance 240 ml 120 ml Intake Oral 240 ml 120 ml Hemodialysis 1000 ml Output Hemodialysis UF 1000 ml # Voids 1 Current Medications Medications (Trade) Dose Ordered Sig/Emmy Route PRN Reason Start Time Stop Time Status Last Admin Dose Admin Acetaminophen (Tylenol) 650 mg Q4H PRN ORAL Mild Pain (Pain Scale 1-3) 12/15/19 19:00 01/14/20 18:59 Atorvastatin Calcium (Lipitor) 20 mg BEDTIME ORAL 12/15/19 21:00 01/14/20 20:59 12/17/19 20:43 Dextrose (Dextrose 50%) 25 ml Q30M PRN IV Hypoglycemia 12/15/19 19:00 01/14/20 18:59 Dextrose (Dextrose 50%) 50 ml Q30M PRN IV Hypoglycemia 12/15/19 19:00 01/14/20 18:59 Docusate Sodium (Colace) 100 mg TID ORAL 12/16/19 13:00 01/14/20 20:59 12/17/19 17:11 Folic Acid (Folate) 1 mg DAILY ORAL 12/16/19 10:30 01/15/20 10:29 12/17/19 08:22 Heparin Sodium (Porcine) (Heparin 5000 units/ml) 5,000 units EVERY 12 HOURS SUBQ 12/15/19 21:00 01/29/20 20:59 12/17/19 20:50 Insulin Aspart (NovoLOG) BEFORE MEALS AND HS SUBQ 12/15/19 21:00 01/14/20 20:59 12/17/19 22:00 Ondansetron HCl (Zofran) 4 mg Q6H PRN IVP Nausea & Vomiting 12/15/19 19:00 01/14/20 18:59 Pantoprazole (Protonix) 40 mg DAILY ORAL 12/16/19 09:00 01/15/20 08:59 12/17/19 08:22 Sevelamer Carbonate (Renvela) 800 mg THREE TIMES A DAY ORAL 12/16/19 13:00 01/15/20 12:59 12/17/19 17:11 Tamsulosin HCl (Flomax) 0.4 mg BEDTIME ORAL 12/15/19 21:00 01/14/20 20:59 12/17/19 20:43 Vancomycin HCl (Vanco rx to dose) 1 ea DAILY PRN MISC Per rx protocol 12/15/19 19:00 01/14/20 18:59 Laboratory Tests 12/18/19 06:37: Random Vancomycin Level 22.1 Height (Feet): 6 Height (Inches): 1.00 Weight (Pounds): 237 General Appearance: no apparent distress Objective No change Tye Zee MD Dec 18, 2019 08:41
[2019-12-18] MEDS: Docusate 100mg cap ORAL SCH (08:55)
[2019-12-18] MEDS: Heparin 5000 units/ml inj SUBQ SCH (08:56)
== END 2019-12-18 11:47 | disposition home health service (06) | DRG 871 ==
LOC: EDBD 17:00 → EMR 17:15 → 2E 18:18 → EDBEDREQ 19:53
PROC: 5A1D70Z Performance of Urinary Filtration, Intermittent, Less than 6 Hours Per Day (ICD-10-PCS; principal; 2019-12-15)
DX: A41.9 Sepsis, unspecified organism (principal); N18.6 End stage renal disease; I13.2 Hypertensive heart and chronic kidney disease with heart failure and with stage 5 chronic kidney disease, or end stage renal disease; I50.22 Chronic systolic (congestive) heart failure; I42.9 Cardiomyopathy, unspecified; E11.22 Type 2 diabetes mellitus with diabetic chronic kidney disease; Z99.2 Dependence on renal dialysis; M10.9 Gout, unspecified; E66.9 Obesity, unspecified; Z79.82 Long term (current) use of aspirin; Z79.4 Long term (current) use of insulin; Z86.718 Personal history of other venous thrombosis and embolism; Q90.9 Down syndrome, unspecified; I95.9 Hypotension, unspecified
CPT/HCPCS: 36415; 71045; 80053; 80061; 80202; 82550; 82553; 82607; 82746; 82962; 82977; 83036; 83605; 83735; 83880; 84100; 84443; 84484; 84550; 85025; 86140; 86706; 86710; 87040; 87081; 93005; 93306; 99285; J1815